=== PATIENT | female | born 1980 | race Caucasian/White ===

== ENCOUNTER 2017-06-30 14:50 | Observation (INO) ==
[2017-06-30 15:36] LABS: Basophils % 0.2 %; Eosinophils # 0.1 K/mcL (0.0-0.6); Eosinophils % 1.8 %; Hematocrit 31.4 % (35.3-44.9); Hemoglobin 10.1 g/dL (11.5-15.4); Immature Granulocytes % 0.4 % (0-4); Lymphocytes # 1.3 K/mcL (0.6-4.6); Lymphocytes % 25.3 %; Mean Corpuscular HGB Conc 32.2 g/dL (31.6-35.5); Mean Corpuscular Hemoglobin 30.1 pg (28.0-33.3); Mean Corpuscular Volume 93.5 fL (83.0-100.0); Mean Platelet Volume 9.4 fL (9.4-12.4); Monocytes # 0.4 K/mcL (0.0-1.3); Monocytes % 7.4 %; Neutrophils # 3.3 K/mcL (1.6-8.9); Platelet Count 215 K/mcL (140-400); Red Blood Count 3.36 M/mcL (3.82-4.97); Red Cell Distribution Width 18.1 % (11.5-14.5); Segmented Neutrophils % 64.9 %
[2017-06-30] MEDS ORDERED: Aspirin 81 MG TAB.CHEW PO STA (15:38)
--- NOTE | 2017-06-30 15:39 | Emergency Department Note ---
Disposition Clinical Impression: Chest pain Qualifiers: Chest pain type: unspecified Qualified Code(s): R07.9 - Chest pain, unspecified Disposition: Admitted As Inpatient Condition: Fair Referrals: Jarvis Helton MD [Primary Care Provider] - Forms: ED Satisfaction Letter Chest Pain HPI - General Chief Complaint: ED Chest Pain Stated Complaint: chest pains Time Seen by Provider: 06/30/17 15:07 - History of Present Illness HPI Narrative: Patient presents for evaluation of chest pain. Patient has past medical history of 3 previous strokes involving the right side with resolution of deficits. Patient also has a history of type 1 diabetes. Hypertension. Hypercholesterolemia. Dialysis in [place] on Tuesday with Patti Calloway. Patient states that she had been seen at [facility] and told that she had a heart attack. She follows with cardiology here and had a stress test on Tuesday. Patient did not have symptoms at this time. She was driving in her car today when she had sudden onset chest pain in the [facility] chest. She describes it as sharp. She describes is worse with walking and worse with inspiration. No associated diaphoresis or nausea or vomiting. Patient states no significant family history of early heart disease. No history of venous thrombus embolism. Patient has no family history of DVT or PEs. Not on anticoagulation. Severity scale (1-10): 7 - Related Data Home Medications Medication Instructions Recorded Confirmed Aspirin [Lo-Dose Aspirin EC] 81 mg PO DAILY 06/30/17 06/30/17 Carvedilol [Coreg] 25 mg PO BID 06/30/17 06/30/17 Dextroamphetamine/Amphetamine 15 mg PO BID 06/30/17 06/30/17 [Adderall 15 mg Tablet] Escitalopram [Lexapro] 20 mg PO DAILY 06/30/17 06/30/17 Gabapentin [Neurontin] 100 mg PO TID 06/30/17 06/30/17 Hydralazine HCl 50 mg PO TID 06/30/17 06/30/17 Insulin ASPART [NovoLOG] 20 - 25 unit SQ TID 06/30/17 06/30/17 Insulin DETEMIR [Levemir Flextouch] 40 unit SQ QAM 06/30/17 06/30/17 Norethindrone Acetate 5 mg PO DAILY 06/30/17 06/30/17 [Norethindrone AC (Lupaneta)] Omeprazole [PriLOSEC] 20 mg PO BIDAC 06/30/17 06/30/17 Allergies Allergy/AdvReac Type Severity Reaction Status Date / Time lisinopril Allergy Anaphylaxis Verified 06/21/17 20:27 naproxen [From Naprosyn] AdvReac See Verified 06/21/17 20:27 Comments Review of Systems: CONSTITUTIONAL: No weight loss, fever, chills, weakness or fatigue. HEENT: Eyes: No visual changes. Ears, Nose, Throat: No hearing loss, difficulty talking or unable to swallow. SKIN: No rash or itching. CARDIOVASCULAR: Chest pain RESPIRATORY: Pain with inspiration GASTROINTESTINAL: No anorexia, nausea, vomiting or diarrhea. No abdominal pain or blood. GENITOURINARY: No burning on urination or hematuria. NEUROLOGICAL: No headache, dizziness, syncope, paralysis, ataxia, numbness or tingling in the extremities. No change in bowel or bladder control. MUSCULOSKELETAL: No muscle pain, back pain, joint pain or stiffness. 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 Cardiac: Regular rate and rhythm, no murmurs, rubs or gallops Abdomen: soft, nontender, nondistended; no guarding, rebound, or tenderness to percussion Musculoskeletal: Calves symmetric, nontender, no palpable cord Skin: Dialysis shunt in the left arm with palpable thrill No rash, normal skin tone Neuro: Alert and Oriented to person, place, and time; No focal deficit, CN 2-12 symmetric and intact Course - Reevaluation(s) Reevaluation #1: Bedside ultrasound performed. Indication: chest pain. Views: subxiphoid. Findings: no pericardial effusion. Impression: no pericardial effusion. - Consultations Consultation #1: Discussed with hospitalist [id number]. Pt accepted for admission. Vital Signs Temperature 98.2 F 06/30/17 14:55 Pulse Rate 95 06/30/17 14:55 Respiratory Rate 20 06/30/17 14:55 Blood Pressure 193/100 06/30/17 14:55 O2 Sat by Pulse Oximetry 97 06/30/17 14:55 Temperature 98.2 F 06/30/17 14:55 Pulse Rate 92 06/30/17 16:58 Respiratory Rate 22 06/30/17 16:58 Blood Pressure 189/101 06/30/17 16:58 O2 Sat by Pulse Oximetry 94 06/30/17 16:58 Oxygen Delivery Oxygen Delivery Room Air Chest Pain - Medical Records Medical records reviewed: Yes I reviewed the patient's medical records. - Lab Data Lab results reviewed: Yes I reviewed the patient's lab results. Result diagrams: 06/30/17 15:14 06/30/17 15:14 Lab Results 06/30/17 06/30/17 06/30/17 Range/Units 15:14 15:14 15:14 WBC 5.1 (4.3-11.1) K/mcL RBC 3.36 L (3.82-4.97) M/mcL Hgb 10.1 L (11.5-15.4) g/dL Hct 31.4 L (35.3-44.9) % MCV 93.5 (83.0-100.0) fL MCH 30.1 (28.0-33.3) pg MCHC 32.2 (31.6-35.5) g/dL RDW 18.1 H (11.5-14.5) % Plt Count 215 (140-400) K/mcL MPV 9.4 (9.4-12.4) fL Immature Gran % 0.4 (0-4) % Seg Neutrophils % 64.9 % Lymphocytes % 25.3 % Monocytes % 7.4 % Eosinophils % 1.8 % Basophils % 0.2 % Neutrophils # 3.3 (1.6-8.9) K/mcL Lymphocytes # 1.3 (0.6-4.6) K/mcL Monocytes # 0.4 (0.0-1.3) K/mcL Eosinophils # 0.1 (0.0-0.6) K/mcL Basophils # 0.0 (0.0-0.2) K/mcL PT 12.5 H (9.4-12.1) Seconds INR 1.2 APTT 27.2 (26.0-36.0) Seconds Sodium (136-145) mEq/L Potassium (3.5-5.1) mEq/L Chloride (98-107) mEq/L Carbon Dioxide (23-29) mEq/L BUN (6-20) mg/dL Creatinine (0.60-1.20) mg/dL Est GFR ( Amer) (> 60) Est GFR (Non-Af Amer) (> 60) BUN/Creatinine Ratio (6-26) Glucose (70-105) mg/dL Calculated Osmolality (280-300) Calcium (8.6-10.3) mg/dL Troponin I (< 0.04) ng/mL B-Natriuretic Peptide 966 H (Less than 100) pg/mL 06/30/17 Range/Units 15:14 WBC (4.3-11.1) K/mcL RBC (3.82-4.97) M/mcL Hgb (11.5-15.4) g/dL Hct (35.3-44.9) % MCV (83.0-100.0) fL MCH (28.0-33.3) pg MCHC (31.6-35.5) g/dL RDW (11.5-14.5) % Plt Count (140-400) K/mcL MPV (9.4-12.4) fL Immature Gran % (0-4) % Seg Neutrophils % % Lymphocytes % % Monocytes % % Eosinophils % % Basophils % % Neutrophils # (1.6-8.9) K/mcL Lymphocytes # (0.6-4.6) K/mcL Monocytes # (0.0-1.3) K/mcL Eosinophils # (0.0-0.6) K/mcL Basophils # (0.0-0.2) K/mcL PT (9.4-12.1) Seconds INR APTT (26.0-36.0) Seconds Sodium 136 (136-145) mEq/L Potassium 3.9 (3.5-5.1) mEq/L Chloride 98 (98-107) mEq/L Carbon Dioxide 28 (23-29) mEq/L BUN 36 H (6-20) mg/dL Creatinine 6.08 H (0.60-1.20) mg/dL Est GFR ( Amer) 9 L (> 60) Est GFR (Non-Af Amer) 8 L (> 60) BUN/Creatinine Ratio 6 (6-26) Glucose 199 H (70-105) mg/dL Calculated Osmolality 296 (280-300) Calcium 8.3 L (8.6-10.3) mg/dL Troponin I 0.04 H* (< 0.04) ng/mL B-Natriuretic Peptide (Less than 100) pg/mL - Radiology Data Radiology results reviewed: Yes I reviewed the patient's radiology results. - EKG Data EKG attestation: Yes I reviewed and interpreted this EKG. EKG results narrative: EKG shows sinus rhythm with ventricular rate of 94. SC 136. QRS 142. QTC 458. Patient has previous left bundle branch block on 03/22/16. Patient does have T-wave changes to the inferior leads compared to previous. Scarbossa criteria not met. Heart Score - Score History: Moderately Suspicious EKG: Non Specific repolarisation Disturbance Age: Less than 45 Risk Factors: Equal/Greater than 3 risk factor or history of atherosclerotic disease Troponin: Less than normal limit HEART Score Total: 4
[2017-06-30 15:41] LABS: INR 1.2; Prothrombin Time 12.5 Seconds (9.4-12.1)
[2017-06-30 15:44] LABS: Activated Partial Thrombo Time 27.2 Seconds (26.0-36.0)
[2017-06-30 15:56] LABS: Calcium 8.3 mg/dL (8.6-10.3); Potassium 3.9 mEq/L (3.5-5.1)
[2017-06-30 16:03] LABS: Troponin I 0.04 ng/mL (< 0.04)
[2017-06-30] MEDS: Nitroglycerin 0.4 MG TAB.SUBL SL PRN ×3 (16:20→17:08)
[2017-06-30] MEDS ORDERED: *HR* Morphine 2 MG/ML SYRINGE IVP ONE (16:38)
[2017-06-30] MEDS ORDERED: Ondansetron 4 MG/2 ML VIAL IVP ONE (16:39)
--- NOTE | 2017-06-30 16:40 | Emergency Department Note ---
START Narrative - START START: I examined this patient and my medical decision-making was reviewed with the Resident Physician. I agree with the documented findings, disposition and treatment plan as described except to the extent set forth below. 36 yo F with known diabetes and presents with unstable angina. admit for aCS rule out had recent stress test done this week here. will obtain those results. having recurrent chest pain again. trop indeterminate. admit
[2017-06-30] MEDS ORDERED: Naloxone 0.4 MG/ML INJ IVP PRN (20:09)
--- NOTE | 2017-06-30 20:27 | Internal Med History&Physical ---
<Ubaldo Leon - Last Filed: 06/30/17 21:27> Date of Encounter: 06/30/17 Time of Encounter: 20:22 Internal Medicine - H&P: HPI Admitted From: Home Plans for Post Hospital Care: Home History of present illness: Ms. Mata is a 36 year old female who presents for evaluation of chest pain. Patient has past medical history of 3 previous strokes involving the right side with resolution of deficits. Patient also has a history of type 1 diabetes, Hypertension, Hypercholesterolemia, and ESRD with dialysis in [place] on Tuesday/Tuesday/Tuesday. She follows with cardiology here and had a stress test on Tuesday. She has hypertension and she reported her blood pressure never has been well controlled. She was driving in her car today when she had sudden onset chest pain. She describes it as sharp. She describes is worse with walking and worse with inspiration. No associated diaphoresis or nausea or vomiting. Patient states no significant family history of early heart disease. No history of venous thrombus embolism. At the ED, her blood pressure was significantly elevated with SBP around 190. Her labs revealed slightly elevated troponin. Chest x-ray revealed borderline cardiomegaly without pulmonary edema. Patient will be admitted for observation. Past Med Surg Social Fam HX - Past Medical History Medical history: non-contributory Psychiatric history: anxiety, bipolar, depression - Past Surgical History Surgical History: other - Social History Smoking Status: Former smoker Smokeless Tobacco Status: No Alcohol use: none Drug use: none - Family History Mother Hx Family Endocrine Disorder: Yes (DM) Hx Family Neurologic Disorders: Yes (3 CVA) Father History Unknown: Yes Internal Medicine - H&P: Meds Aspirin [Lo-Dose Aspirin EC] 81 mg PO DAILY 06/30/17 [History] Carvedilol [Coreg] 25 mg PO BID 06/30/17 [History] Dextroamphetamine/Amphetamine [Adderall 15 mg Tablet] 15 mg PO BID 06/30/17 [ History] Escitalopram [Lexapro] 20 mg PO DAILY 06/30/17 [History] Gabapentin [Neurontin] 100 mg PO TID 06/30/17 [History] Hydralazine HCl 50 mg PO TID 06/30/17 [History] Insulin ASPART [NovoLOG] 20 - 25 unit SQ TID 06/30/17 [History] Insulin DETEMIR [Levemir Flextouch] 40 unit SQ QAM 06/30/17 [History] Norethindrone Acetate [Norethindrone AC (Lupaneta)] 5 mg PO DAILY 06/30/17 [ History] Omeprazole [PriLOSEC] 20 mg PO BIDAC 06/30/17 [History] 3 Allergy/AdvReac Type Severity Reaction Status Date / Time lisinopril Allergy Anaphylaxis Verified 06/21/17 20:27 naproxen [From Naprosyn] AdvReac See Verified 06/21/17 20:27 Comments All Systems PM: A 10-system review of systems was performed and is negative for pertinent findings except as documented above in the HPI. Review of systems: REVIEW OF SYSTEMS: CONSTITUTIONAL: No weight loss, fever, chills, weakness or fatigue. HEENT: Eyes: No visual loss, blurred vision, double vision or yellow sclerae. Ears, Nose, Throat: No hearing loss, sneezing, congestion, runny nose or sore throat. SKIN: No rash or itching. CARDIOVASCULAR: see HPI. RESPIRATORY: No shortness of breath, cough or sputum. GASTROINTESTINAL: No anorexia, nausea, vomiting or diarrhea. No abdominal pain or blood. GENITOURINARY: see HPI. NEUROLOGICAL: No headache, dizziness, syncope, paralysis, ataxia, numbness or tingling in the extremities. No change in bowel or bladder control. MUSCULOSKELETAL: No muscle, back pain, joint pain or stiffness. HEMATOLOGIC: No anemia, bleeding or bruising. LYMPHATICS: No enlarged nodes. No history of splenectomy. PSYCHIATRIC: No history of depression or anxiety. ENDOCRINOLOGIC: No reports of sweating, cold or heat intolerance. No polyuria or polydipsia. - Constitutional Vitals: Temp Pulse Resp BP Pulse Ox 98.2 F 88 17 192/94 95 06/30/17 18:59 06/30/17 18:59 06/30/17 18:59 06/30/17 18:59 06/30/17 18:59 General appearance: Present: A&O X 3 Exam: PHYSICAL EXAMINATION: GENERAL APPEARANCE: The patient is alert, oriented and in no acute distress. HEENT: Head is normocephalic. The sinuses are nontender. Pupils are equal and reactive. The nares are patent. Oropharynx clear without lesions. NECK: Supple without lymphadenopathy. HEART: Regular rate and rhythm. LUNGS: No crackles or wheezes are heard. ABDOMEN: Soft, nontender, nondistended with good bowel sounds heard. Inguinal area is normal. EXTREMITIES: Without cyanosis, clubbing or edema. NEUROLOGICAL: Gross nonfocal. SKIN: Warm and dry without any rash. Internal Med - H&P Results - Labs CBC & Chem 7: 06/30/17 15:14 06/30/17 15:14 - Assessment and plan (1) Chest pain Current Visit: Yes Status: Acute Assessment and plan: 76 year old female with past medical history of end stage renal disease with dialysis, hypertension, stroke, and hyperlipidemia presented with acute onset of chest pain. She underwent recent cardiac workup including a stress test which was normal. Her blood pressure was significantly elevated with SBP around 190 upon arrival. Patient reported her blood pressure never has been well controlled. She is currently taking Coreg and hydralazine at home. - In the setting of severely elevated BP, chest pain is likely caused by demand ischemia. Place patient on nicardipine drip. We will adjust home medication to achieve better BP control and titrate off nicardipine drip. - Cycle troponin, telemetry monitoring, EKG as needed. - lipid panel in a.m., adding statins, received 1 dose of aspirin at ED, continue home aspirin. Qualifiers: Chest pain type: unspecified Qualified Code(s): R07.9 - Chest pain, unspecified (2) Hypertensive emergency Current Visit: Yes Status: Acute Assessment and plan: - same as above. (3) Diabetes Current Visit: No Status: Chronic Assessment and plan: - Continue home insulin regimen, adding insulin sliding scale. Qualifiers: Diabetes mellitus type: type 1 Diabetes mellitus complication status: with unspecified complications Qualified Code(s): E10.8 - Type 1 diabetes mellitus with unspecified complications (4) ESRD (end stage renal disease) Current Visit: No Status: Chronic Assessment and plan: - Renal consul, HD on Tuesday/Tuesday/Tuesday. (5) Stroke Current Visit: No Status: Chronic Assessment and plan: - Continue aspirin, continue statins, control BP. Qualifiers: CVA mechanism: unspecified Qualified Code(s): I63.9 - Cerebral infarction, unspecified (6) Hyperlipidemia Current Visit: No Status: Chronic Assessment and plan: Patient started on statins. Qualifiers: Hyperlipidemia type: pure hypercholesterolemia Qualified Code(s): E78.00 - Pure hypercholesterolemia, unspecified; E78.0 - Pure hypercholesterolemia - Time Spent With Patient Total time spent is greater than 50% in coordination of care (as documented) at patient's floor/unit and/or counseling patient: Greater than 35 minutes <Ferdinand Hazel - Last Filed: 07/01/17 06:12> Date of Encounter: 06/30/17 Internal Medicine - H&P: HPI History of present illness: Ms. Mata is a 36 year old female All Systems PM: A 10-system review of systems was performed and is negative for pertinent findings except as documented above in the HPI. - Constitutional Vitals: Temp Pulse Resp BP Pulse Ox 97.6 F 66 16 129/80 96 07/01/17 03:02 07/01/17 03:02 07/01/17 04:57 07/01/17 03:02 07/01/17 04:57 Internal Med - H&P Results - Labs CBC & Chem 7: 07/01/17 02:55 07/01/17 02:55 Labs: Short CBC 07/01/17 Range/Units 02:55 WBC 4.0 L (4.3-11.1) K/mcL Hgb 8.7 L (11.5-15.4) g/dL Hct 28.7 L (35.3-44.9) % Plt Count 152 (140-400) K/mcL Neutrophils # 1.7 (1.6-8.9) K/mcL BMP 07/01/17 02:55 Sodium 138 Potassium 4.1 Chloride 101 Carbon Dioxide 27 BUN 42 H Creatinine 6.87 H Glucose 72 Calcium 8.0 L Cardiac Enzymes 06/30/17 07/01/17 Range/Units 20:32 02:55 Troponin I 0.04 H* 0.04 H* (< 0.04) ng/mL - Attending Attestation I saw and evaluated the patient, and performed my own physical examination on . I discussed the case with the RESOLUTE PROFESSIONAL, and I reviewed the RESOLUTE PROFESSIONAL's note and agree with findings and plan as documented. Briefly, patient is ESRD patient on dialysis admitted for chest pain. Patient states that she was recently treated for bronchitis with Z-pack. Chest pain may be related to this, but given elevated BP and elevated troponin will initiate ACS ruleout workup. Chest pain improved somewhat with duoneb, claritin, and guaifenesin. She is relaxing comfortably in bed when I saw her. She sees paper roller Dr. Calloway; we will consult in AM. She gets M-W-F dialysis. RESOLUTE PROFESSIONAL had planned on starting cardizem drip for hypertensive urgency, but I stopped it as nurse had just given patient all of her PM BP medications. Subsequently, nurse notified that BP came down with home medications. - Assessment and plan (1) Chest pain Current Visit: Yes Status: Acute Qualifiers: Chest pain type: unspecified Qualified Code(s): R07.9 - Chest pain, unspecified (2) Hypertensive emergency Current Visit: Yes Status: Acute (3) Diabetes Current Visit: No Status: Chronic Qualifiers: Diabetes mellitus type: type 1 Diabetes mellitus complication status: with unspecified complications Qualified Code(s): E10.8 - Type 1 diabetes mellitus with unspecified complications (4) ESRD (end stage renal disease) Current Visit: No Status: Chronic (5) Stroke Current Visit: No Status: Chronic Qualifiers: CVA mechanism: unspecified Qualified Code(s): I63.9 - Cerebral infarction, unspecified (6) Hyperlipidemia Current Visit: No Status: Chronic Qualifiers: Hyperlipidemia type: pure hypercholesterolemia Qualified Code(s): E78.00 - Pure hypercholesterolemia, unspecified; E78.0 - Pure hypercholesterolemia - Time Spent With Patient Total time spent is greater than 50% in coordination of care (as documented) at patient's floor/unit and/or counseling patient:
[2017-06-30] MEDS ORDERED: D5% in Water 1,000 ML IVC PRN (20:32)
[2017-06-30] MEDS ORDERED: *HR* Dextrose 50 % in Water (Syg) 50 ML SYRINGE IVP PRN (20:32)
[2017-06-30] MEDS ORDERED: Dextrose Gel 15 GM/37.5 ML TUBE PO PRN ×2 (20:32)
[2017-06-30] MEDS ORDERED: niCARdipine 40 MG/200 ML MLS IVC SCH (20:45)
[2017-06-30] MEDS: Gabapentin 100 MG CAPSULE PO SCH (20:56)
[2017-06-30] MEDS: Insulin LISPRO 300 UNITS/3 ML VIAL SQ SCH (20:57)
[2017-06-30] MEDS: AMPHETAMINE PO SCH (20:57)
[2017-06-30] MEDS: DEXTROAMPHETAMINE PO SCH (20:57)
[2017-06-30] MEDS: hydrALAZINE 25 MG TABLET PO SCH (20:57)
[2017-06-30] MEDS: traMADol 50 MG TABLET PO PRN (21:02)
[2017-06-30] MEDS ORDERED: Ipratropium/Albuterol Neb 3 ML IH ONE (21:23)
[2017-06-30] MEDS: Loratadine 10 MG TABLET PO SCH (22:15)
[2017-06-30] MEDS: Acetaminophen 325 MG TABLET PO PRN (22:24)
[2017-06-30] MEDS ORDERED: Ipratropium/Albuterol Neb 3 ML IH PRN (23:54)
[2017-07-01 03:26] LABS: Basophils % 0.5 %; Eosinophils # 0.1 K/mcL (0.0-0.6); Hematocrit 28.7 % (35.3-44.9); Hemoglobin 8.7 g/dL (11.5-15.4); Immature Granulocytes % 0.5 % (0-4); Lymphocytes # 1.8 K/mcL (0.6-4.6); Lymphocytes % 45.5 %; Mean Corpuscular HGB Conc 30.3 g/dL (31.6-35.5); Mean Corpuscular Hemoglobin 28.5 pg (28.0-33.3); Mean Corpuscular Volume 94.1 fL (83.0-100.0); Mean Platelet Volume 9.7 fL (9.4-12.4); Monocytes # 0.4 K/mcL (0.0-1.3); Monocytes % 8.9 %; Neutrophils # 1.7 K/mcL (1.6-8.9); Platelet Count 152 K/mcL (140-400); Red Blood Count 3.05 M/mcL (3.82-4.97); Red Cell Distribution Width 17.9 % (11.5-14.5); Segmented Neutrophils % 42.6 %
[2017-07-01 03:41] LABS: Chol/HDL Ratio 4.5 (0-4.9); Potassium 4.1 mEq/L (3.5-5.1)
[2017-07-01] MEDS: *HR* Heparin 5,000 UNIT/ML VIAL SQ SCH ×2 (04:50→16:36)
[2017-07-01] MEDS: traMADol 50 MG TABLET PO PRN (04:54)
[2017-07-01] MEDS: Ipratropium/Albuterol Neb 3 ML IH SCH ×6 (04:56→23:06)
[2017-07-01] MEDS ORDERED: 0.9 % Sodium Chloride 250 ML IVC PRN (07:20)
[2017-07-01] MEDS ORDERED: 0.9 % Sodium Chloride 1,000 ML PRIME SCH (07:30)
[2017-07-01] MEDS: Insulin DETEMIR 100 UNIT/ML X5UNITS SQ SCH (07:48)
[2017-07-01] MEDS: hydrALAZINE 25 MG TABLET PO SCH ×2 (07:48→16:34)
[2017-07-01] MEDS: Loratadine 10 MG TABLET PO SCH (07:49)
[2017-07-01] MEDS: Gabapentin 100 MG CAPSULE PO SCH ×3 (07:49→20:09)
[2017-07-01] MEDS: Aspirin Enteric Coated 81 MG Tablet PO SCH (07:49)
[2017-07-01] MEDS: Insulin LISPRO 300 UNITS/3 ML VIAL SQ SCH ×7 (07:49→20:09)
[2017-07-01] MEDS: DEXTROAMPHETAMINE PO SCH ×2 (07:50→21:10)
[2017-07-01] MEDS: AMPHETAMINE PO SCH ×2 (07:50→21:10)
--- NOTE | 2017-07-01 08:14 | Internal Med Progress Note ---
Date of Encounter: 07/01/17 Time of Encounter: 08:08 - Assessment and plan (1) Chest pain Current Visit: Yes Status: Acute Assessment and plan: 36 year old female with past medical history of end stage renal disease with dialysis, hypertension, stroke, and hyperlipidemia presented with acute onset of chest pain. She underwent recent cardiac workup including a stress test which was normal. Her blood pressure was significantly elevated with SBP around 190 upon arrival. Patient reported her blood pressure never has been well controlled. She is currently taking Coreg and hydralazine at home. - In the setting of severely elevated BP, chest pain is likely caused by demand ischemia. It seems pt is not compliant with her BP meds. After giving home medication, her blood pressure was controlled. Hydralazine dose increased to 100 mg 3 times a day to achieve better BP control. - Troponin negative 3, continue telemetry monitoring, EKG as needed. - Continue statins, continue home aspirin. - Patient had a stress test on 06/30/2017, which was normal. Pending echocardiogram. Qualifiers: Chest pain type: unspecified Qualified Code(s): R07.9 - Chest pain, unspecified (2) Hypertensive emergency Current Visit: Yes Status: Acute Assessment and plan: - same as above. (3) Diabetes Current Visit: No Status: Chronic Assessment and plan: - BG controlled, Continue home insulin regimen and insulin sliding scale. Qualifiers: Diabetes mellitus type: type 1 Diabetes mellitus complication status: with unspecified complications Qualified Code(s): E10.8 - Type 1 diabetes mellitus with unspecified complications (4) ESRD (end stage renal disease) Current Visit: No Status: Chronic Assessment and plan: - HD on Tuesday/Tuesday/Tuesday. She will have dialysis today. Renal following. (5) Stroke Current Visit: No Status: Chronic Assessment and plan: - Continue aspirin, continue statins, control BP. Qualifiers: CVA mechanism: unspecified Qualified Code(s): I63.9 - Cerebral infarction, unspecified (6) Hyperlipidemia Current Visit: No Status: Chronic Assessment and plan: Patient started on statins. Qualifiers: Hyperlipidemia type: pure hypercholesterolemia Qualified Code(s): E78.00 - Pure hypercholesterolemia, unspecified; E78.0 - Pure hypercholesterolemia - Time Spent With Patient Total time spent is greater than 50% in coordination of care (as documented) at patient's floor/unit and/or counseling patient: Greater than 35 minutes - Subjective Interval history: She was seen and examined in the room, she complained dry cough, but denies any chest pain, headache, shortness breath, lightheadedness, or palpitation. - Constitutional Vitals: Temp Pulse Resp BP Pulse Ox 97.5 F L 66 16 148/81 96 07/01/17 07:46 07/01/17 07:46 07/01/17 07:46 07/01/17 07:46 07/01/17 07:46 General appearance: Present: A&O X 3 Exam: PHYSICAL EXAMINATION: GENERAL APPEARANCE: The patient is alert, oriented and in no acute distress. HEENT: Head is normocephalic. The sinuses are nontender. Pupils are equal and reactive. The nares are patent. Oropharynx clear without lesions. NECK: Supple without lymphadenopathy. HEART: Regular rate and rhythm. LUNGS: No crackles or wheezes are heard. ABDOMEN: Soft, nontender, nondistended with good bowel sounds heard. Inguinal area is normal. EXTREMITIES: Without cyanosis, clubbing or edema. NEUROLOGICAL: Gross nonfocal. SKIN: Warm and dry without any rash. Internal Medicine: Result - Labs CBC & Chem 7: 07/01/17 02:55 07/01/17 02:55 Labs: Short CBC 07/01/17 Range/Units 02:55 WBC 4.0 L (4.3-11.1) K/mcL Hgb 8.7 L (11.5-15.4) g/dL Hct 28.7 L (35.3-44.9) % Plt Count 152 (140-400) K/mcL Neutrophils # 1.7 (1.6-8.9) K/mcL BMP 07/01/17 02:55 Sodium 138 Potassium 4.1 Chloride 101 Carbon Dioxide 27 BUN 42 H Creatinine 6.87 H Glucose 72 Calcium 8.0 L Cardiac Enzymes 06/30/17 07/01/17 Range/Units 20:32 02:55 Troponin I 0.04 H* 0.04 H* (< 0.04) ng/mL - ABG Interpretation ABG results: PT/INR, D-dimer PT 12.5 Seconds (9.4-12.1) H 06/30/17 15:14 Consult Discharge Plan - Plan Referrals: Jarvis Helton MD [Primary Care Provider] -
[2017-07-01 08:42] LABS: Hepatitis B Surface Antigen Nonreactive (Nonreactive)
[2017-07-01 08:50] LABS: Hepatitis B Surface Antibody 237.43 mIU/mL
--- NOTE | 2017-07-01 09:37 | Nephrology Consult Note ---
Date of Encounter: 07/01/17 Time of Encounter: 07:50 Assessment and Plan (1) ESRD (end stage renal disease) Current Visit: No Status: Chronic ESRD on HD M/W/F with Dr. Calloway at [facility] in [place], [place]. Her primary heel cutter/group does not round at [facility]. She has been arranged for HD today for routine clearance and UF. Her next HD will be planned for Tuesday. Thank you for having consulted the [facility] group. (2) Anemia due to stage 5 chronic kidney disease Current Visit: Yes Status: Chronic Goal Hgb is 10-11, and so will arrange for EPO as needed. (3) Chest pain Current Visit: Yes Status: Acute As per primary. She has been on HD for about 1 year, so if she were to need a LHC, then would still pretreat with IVF to minimize impact on her residual renal function. Qualifiers: Chest pain type: unspecified Qualified Code(s): R07.9 - Chest pain, unspecified (4) Hypertensive emergency Current Visit: Yes Status: Acute Should expect to see slow and safe BP decline with dialysis today. Resume home antihypertensive medications. History of Present Illness - Reason for Consult Consult date: 07/01/17 end stage renal disease Requesting physician: Carla West - Chief Complaint Chest Pain - History of Present Illness Julia Mata is a very pleasant 36 y/o T1DM female with a pmh of ESRD on HD M/W/F for about 1 year, HTN, anemia, and etc who presented with chest pain / ACS. Nephrology was consulted for her dialysis. Regarding her chronic dialysis history, she follows with Dr. Calloway and dialyzes at the [facility] in [place] via a LUE AVF. She reported having been on dialysis for about 1 year ; and she voiced that the cause of her renal failure was due to her T1DM. She has never had a prior renal biopsy. She did not report any recent AVF problems such as prolonged bleeding or recent fistulagrams. She denied OTC NSAID use. CP recently started and led to this hospitalization; see H&P regarding CP onset, severity, location, palliative/provocative factors and etc. Her last HD was Tuesday without CP during dialysis, she affirmed. Past Med Surg Social Fam HX - Past Medical History Medical history: non-contributory Psychiatric history: anxiety, bipolar, depression - Past Surgical History Surgical History: other - Social History Smoking Status: Former smoker Smokeless Tobacco Status: No Alcohol use: none Drug use: none - Family History Mother Hx Family Endocrine Disorder: Yes (DM) Hx Family Neurologic Disorders: Yes (3 CVA) Father History Unknown: Yes Medications and Allergies Aspirin [Lo-Dose Aspirin EC] 81 mg PO DAILY 06/30/17 [History] Carvedilol [Coreg] 25 mg PO BID 06/30/17 [History] Dextroamphetamine/Amphetamine [Adderall 15 mg Tablet] 15 mg PO BID 06/30/17 [ History] Escitalopram [Lexapro] 20 mg PO DAILY 06/30/17 [History] Gabapentin [Neurontin] 100 mg PO TID 06/30/17 [History] Hydralazine HCl 50 mg PO TID 06/30/17 [History] Insulin ASPART [NovoLOG] 20 - 25 unit SQ TID 06/30/17 [History] Insulin DETEMIR [Levemir Flextouch] 40 unit SQ QAM 06/30/17 [History] Norethindrone Acetate [Norethindrone AC (Lupaneta)] 5 mg PO DAILY 06/30/17 [ History] Omeprazole [PriLOSEC] 20 mg PO BIDAC 06/30/17 [History] 3 Allergy/AdvReac Type Severity Reaction Status Date / Time lisinopril Allergy Anaphylaxis Verified 06/21/17 20:27 naproxen [From Naprosyn] AdvReac See Verified 06/21/17 20:27 Comments Review of Systems All Systems: reviewed and no additional remarkable complaints except as stated Exam - Vital Signs Vital signs: Initial Vital Signs Temp Pulse Resp BP Pulse Ox 98.2 F 95 20 193/100 97 06/30/17 14:55 06/30/17 14:55 06/30/17 14:55 06/30/17 14:55 06/30/17 14:55 Vital Signs - Last 8 Hours Temp Pulse Resp BP Pulse Ox 07/01/17 08:06 16 95 07/01/17 07:46 97.5 F L 66 16 148/81 96 07/01/17 04:57 16 96 07/01/17 03:02 97.6 F 66 17 129/80 98 Intake and Output 06/30/17 07/01/1707/01/18 23:59 07:59 15:59 Other: Weight 92.4 kg 93 kg Blood Glucose* 138 87 Patient Weight 07/01/17 23:59 Weight 93 kg - General Appearance General appearance: well-developed (Short body habitus), well-nourished, appears started age, obese EENT: ATNC, PERRL Neck: supple Respiratory: course breath sounds Cardiology: edema (trace pedal edema b/l), normal S1, normal S2 - Dialysis Access Dialysis Vascular Access: Arteriovenous Graft (Left upper arm AVF with excellent thrill/bruit) thrill: Yes bruit: Yes Gastrointestinal: normoactive bowel sounds, no tenderness, no guarding Integumentary: no rash, warm and dry Neurologic: no focal deficit, no asterixis, alert and oriented x3 Musculoskeletal: no deformities, no erythema, no cyanosis Psychiatric: mood/affect appropriate, cooperative Results - Lab Results 07/01/17 02:55 07/01/17 02:55 Most recent lab results Calcium 8.0 mg/dL (8.6-10.3) L 07/01/17 02:55 I reviewed the labs, vitals, imaging, progress notes and dialysis history. Consult Discharge Plan - Plan Referrals: Jarvis Helton MD [Primary Care Provider] -
[2017-07-01] MEDS ORDERED: 0.9 % Sodium Chloride 2,000 ML ONE (13:57)
--- NOTE | 2017-07-01 23:23 | Electrocardiograph Report ---
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
[2017-07-02] MEDS: hydrALAZINE 25 MG TABLET PO SCH ×2 (00:19→08:09)
[2017-07-02] MEDS: Ipratropium/Albuterol Neb 3 ML IH SCH ×4 (03:27→15:02)
[2017-07-02 04:43] LABS: Hemoglobin 9.1 g/dL (11.5-15.4); Mean Corpuscular HGB Conc 30.3 g/dL (31.6-35.5); Mean Corpuscular Hemoglobin 28.7 pg (28.0-33.3); Mean Corpuscular Volume 94.6 fL (83.0-100.0); Mean Platelet Volume 10.8 fL (9.4-12.4); Platelet Count 136 K/mcL (140-400); Red Blood Count 3.17 M/mcL (3.82-4.97); Red Cell Distribution Width 17.5 % (11.5-14.5)
[2017-07-02 05:01] LABS: Calcium 7.9 mg/dL (8.6-10.3); Potassium 4.2 mEq/L (3.5-5.1)
[2017-07-02] MEDS: *HR* Heparin 5,000 UNIT/ML VIAL SQ SCH (05:35)
--- NOTE | 2017-07-02 06:53 | Event Note ---
Date of Encounter: 07/02/17 Time of Encounter: 06:52 Nephrology Chart Review Last HD was yesterday (Tuesday), and the pt's next tentative dialysis would be for Tuesday. I am available this weekend if needed. Please feel free to call or page me if any questions. Thank you.
[2017-07-02] MEDS: AMPHETAMINE PO SCH (08:07)
[2017-07-02] MEDS: DEXTROAMPHETAMINE PO SCH (08:07)
[2017-07-02] MEDS: Insulin LISPRO 300 UNITS/3 ML VIAL SQ SCH ×3 (08:07→14:04)
[2017-07-02] MEDS: Insulin DETEMIR 100 UNIT/ML X5UNITS SQ SCH (08:07)
[2017-07-02] MEDS: Aspirin Enteric Coated 81 MG Tablet PO SCH (08:09)
[2017-07-02] MEDS: Gabapentin 100 MG CAPSULE PO SCH (08:09)
[2017-07-02] MEDS: Loratadine 10 MG TABLET PO SCH (08:09)
--- NOTE | 2017-07-02 10:10 | Discharge Summary ---
- NOTES TO OUTPATIENT PROVIDER Notes to Outpatient Provider: Patient in for chest pain rule out, workup found to be negative. Noted to have some mildly elevated troponins likely due to demand ischemia with hypertensive urgency. Hydralazine dose to increased, blood pressure improved throughout stay. Instructed to follow up with primary care and nephrology within 1 week of discharge. Orders not resulted at time of discharge: Pending orders 07/03/17 04:00 Basic Metabolic Panel AM 0400 Complete Blood Count w/o Diff [HEME] AM 0400 07/04/17 04:00 Basic Metabolic Panel AM 0400 Complete Blood Count w/o Diff [HEME] AM 04007/05/17 04:00 Basic Metabolic Panel AM 0400 Complete Blood Count w/o Diff [HEME] AM 0400 07/06/17 04:00 Basic Metabolic Panel AM 0400 Complete Blood Count w/o Diff [HEME] AM 0400 07/07/17 04:00 Basic Metabolic Panel AM 0400 Complete Blood Count w/o Diff [HEME] AM 0400 07/08/17 04:00 Basic Metabolic Panel AM 0400 Complete Blood Count w/o Diff [HEME] AM 0400 Date of Encounter: 07/02/17 Time of Encounter: 10:07 - Discharge Diagnosis (1) Chest pain Priority: Primary Status: Acute Assessment and Plan: 36 year old female with past medical history of end stage renal disease with dialysis, hypertension, stroke, and hyperlipidemia presented with acute onset of chest pain. She underwent recent cardiac workup including a stress test which was normal. Her blood pressure was significantly elevated with SBP around 190 upon arrival, antihypertensive medications were adjusted. Hydralazine increased to 100 mg by mouth every 8 hours. Up titration of antihypertensive medication provided adequate BP control. Continue Coreg at discharge. However, the patient reports her blood pressure never has been well controlled. With negative for ACS workup including negative troponins 3, negative stress test and TTE without acute findings the chest pain is felt to be caused by demand ischemia secondary to hypertension. The patient reports that the chest pain resolved on day of admission with improvement in blood pressure. She has not had any return of chest pain throughout the stay. She has remained hemodynamically stable and has had uneventful hospital course. The patient reports that she feels like she is back to baseline and ready for discharge. With resolution of chest pain, negative workup and improvement hypertension the patient is medically stable for discharge. TTE results as follows LVEF 55%. Normal LV chamber size and function. Mild concentric left ventricular hypertrophy. Probable moderate left ventricular diastolic dysfunction. Atypical septal motion consistent with bundle branch block. Normal right ventricular structure and function. No significant valvular dysfunction. Trace pericardial effusion. Mild pulmonary hypertension. Qualifiers: Chest pain type: unspecified Qualified Code(s): R07.9 - Chest pain, unspecified (2) Hypertensive emergency Priority: Secondary Status: Acute Assessment and Plan: Patient presented with hypertensive urgency, his BPs in the 180s and 190s. Hydralazine titrated to 100 mg by mouth every 8 hours, bp improving now. HTN noted on this mornings vitals with SBP in the 170s however, patient has not received her morning dose of anti-HTN medications. Follow-up blood pressure after HTN medication shows improvement. Continue hydralazine 100 mg every 8 hours and discharge, patient instructed to follow-up with PCP and commercial electrician for further titration of antihypertensive medications (3) Diabetes Priority: Secondary Status: Chronic Assessment and Plan: - BG controlled, Continue home insulin regimen at discharge Qualifiers: Diabetes mellitus type: type 1 Diabetes mellitus complication status: with unspecified complications Qualified Code(s): E10.8 - Type 1 diabetes mellitus with unspecified complications (4) ESRD (end stage renal disease) Priority: Secondary Status: Chronic Assessment and Plan: - HD on Tuesday/Tuesday/Tuesday. Following with commercial electrician in [place]. Continues to have chair for M/to be/F HD she has been instructed to follow-up with commercial electrician on Tuesday as planned. Renal function stable throughout the stay, received UF per our nephrology group yesterday. Reports she is feeling much better today. (5) Stroke Priority: Secondary Status: Chronic Assessment and Plan: History of previous stroke, Continue aspirin, continue statins, control BP. Patient instructed to follow-up with PCP and commercial electrician for further titration of antihypertensive medications Qualifiers: CVA mechanism: unspecified Qualified Code(s): I63.9 - Cerebral infarction, unspecified (6) Hyperlipidemia Priority: Secondary Status: Chronic Assessment and Plan: Patient started on statins. Comments: Continue Lipitor discharge Qualifiers: Hyperlipidemia type: pure hypercholesterolemia Qualified Code(s): E78.00 - Pure hypercholesterolemia, unspecified; E78.0 - Pure hypercholesterolemia Hospital course: Ms. Mata is a 36 year old female 36 year old female with past medical history of end stage renal disease with dialysis, hypertension, stroke, and hyperlipidemia presented with acute onset of chest pain. She underwent recent cardiac workup including a stress test which was normal. Her blood pressure was significantly elevated with SBP around 190 upon arrival, antihypertensive medications were adjusted. Hydralazine increased to 100 mg by mouth every 8 hours. Up titration of antihypertensive medication provided adequate BP control. Continue Coreg at discharge. However, the patient reports her blood pressure never has been well controlled. With negative for ACS workup including negative troponins 3, negative stress test and TTE without acute findings the chest pain is felt to be caused by demand ischemia secondary to hypertension. The patient reports that the chest pain resolved on day of admission with improvement in blood pressure. She has not had any return of chest pain throughout the stay. She has remained hemodynamically stable and has had uneventful hospital course. The patient reports that she feels like she is back to baseline and ready for discharge. With resolution of chest pain, negative workup and improvement hypertension the patient is medically stable for discharge. Discharge discussed with: patient, nurse - Time Spent with Patient Total time spent providing and/or coordinating discharge services: Less than 30 minutes - Discharge Medications Prescriptions: Hydralazine HCl 100 mg PO TID 30 Days #90 tablet Home Medications: Aspirin [Lo-Dose Aspirin EC] 81 mg PO DAILY 06/30/17 [History] Carvedilol [Coreg] 25 mg PO BID 06/30/17 [History] Dextroamphetamine/Amphetamine [Adderall 15 mg Tablet] 15 mg PO BID 06/30/17 [ History] Escitalopram [Lexapro] 20 mg PO DAILY 06/30/17 [History] Gabapentin [Neurontin] 100 mg PO TID 06/30/17 [History] Insulin ASPART [NovoLOG] 20 - 25 unit SQ TID 06/30/17 [History] Insulin DETEMIR [Levemir Flextouch] 40 unit SQ QAM 06/30/17 [History] Norethindrone Acetate [Norethindrone AC (Lupaneta)] 5 mg PO DAILY 06/30/17 [ History] Omeprazole [PriLOSEC] 20 mg PO BIDAC 06/30/17 [History] Hydralazine HCl 100 mg PO TID 30 Days #90 tablet 07/02/17 [Rx] Allergies/Adverse Reactions: 3 Allergy/AdvReac Type Severity Reaction Status Date / Time lisinopril Allergy Anaphylaxis Verified 06/21/17 20:27 naproxen [From Naprosyn] AdvReac See Verified 06/21/17 20:27 Comments Date of admission: 06/30/17 17:50 Primary care physician: Jarvis Helton, Consults: 06/30/17 20:43 Consult to Nephrology [CONS] Routine Consulting Provider: [facility] Shea/EULALIA/EDGARDO/BLACK Reason for Consult: HD Call Completed: No 07/01/17 07:30 Consult to Dialysis [CONS] ONCE Discharging clinician: Benjie Gutierrez Anticipated date of discharge: 07/02/17 - Constitutional Vitals: Temp Pulse Resp BP Pulse Ox 98.5 F 85 18 172/84 99 07/02/17 07:28 07/02/17 07:28 07/02/17 07:35 07/02/17 07:28 07/02/17 07:35 General appearance: Present: A&O X 3 - Head Head exam: Present: atraumatic, normocephalic - Eye Eye exam: Present: PERRL, conjuntiva pink, sclera anicteric Pupils: Present: PERRL - Neck Neck exam general surgery: Present: supple, trachea midline. Absent: lymphadenopathy - Respiratory Respiratory exam: Present: CTAB. Absent: accessory muscle use, rales, rhonchi, wheezes - Cardiovascular Cardiovascular exam: Present: RRR, +S1, +S2. Absent: diastolic murmur, gallop, rubs, systolic murmur - GI/Abdominal GI/Abdominal exam: Present: normal bowel sounds, soft, no peritoneal signs. Absent: distended, tenderness - Extremities Exam Extremities exam: Present: warm, radial pulses palpable and symmetrical. Absent : calf tenderness, cyanotic, pedal edema - Neurological Exam Neurological exam: Present: CN II-XII intact, oriented X3, no focal deficits. Absent: pronater drift, facial droop, speech deficit - Skin Skin exam: Present: dry, intact - Patient Status Disposition: Home, Self-Care Condition: Fair Overall status at discharge: patient is progressing back to baseline - Discharge Instructions Follow Up With: Jarvis Helton MD [Primary Care Provider] -
[2017-07-02 11:00] VITALS: BP 132/63
[2017-07-02] MEDS: Acetaminophen 325 MG TABLET PO PRN (14:02)
== END 2017-07-02 15:47 | disposition home or self-care (01) ==
LOC: EMEROO 14:50 → 3BNU 14:50
PROVIDERS: ADMIT Student in an Organized Health Care Education/Training Program; ATTEND General Practice

== ENCOUNTER 2017-07-05 04:38 | Observation (INO) ==
--- NOTE | 2017-07-05 05:10 | Emergency Department Note ---
Disposition Clinical Impression: Elevated troponin Dyspnea Qualifiers: Dyspnea type: unspecified Qualified Code(s): R06.00 - Dyspnea, unspecified Chest pain Qualifiers: Chest pain type: unspecified Qualified Code(s): R07.9 - Chest pain, unspecified Hypertension Qualifiers: Hypertension type: unspecified Qualified Code(s): I10 - Essential (primary) hypertension Disposition: Still a Patient Referrals: Jarvis Helton MD [Primary Care Provider] - Forms: ED Satisfaction Letter Time of Disposition: 06:45 Chest Pain HPI - General Chief Complaint: ED Chest Pain Stated Complaint: cp/sob Time Seen by Provider: 07/05/17 04:47 Source: patient Mode of arrival: ambulatory Limitations: no limitations Vital Signs Reviewed: Yes Nursing Notes Reviewed: Yes - History of Present Illness HPI Narrative: Patient is a 36-year-old female hypertension, hyperlipidemia, COPD, diabetes, stroke, dialysis dependent, previous stroke with residual slurred speech. She presents today due to chest pain. Chest pain started about 2 hours ago, gradual in onset, woke her up out of sleep, described as a pressure in the center of her chest, no radiation, currently a 10 out of 10. Did not take any aspirin or nitroglycerin prior to arrival. She denies any previous NV or cardiac stents in the past. She did recently have a stress test on 07/01 that showed she had an EF of around 36% negative for overt ischemia. She also admits to some mild shortness of breath. Denies any nausea, vomiting, fevers, diarrhea, abdominal pain, arm or jaw pain.. Severity scale (1-10): 7 - Related Data Home Medications Medication Instructions Recorded Confirmed Aspirin [Lo-Dose Aspirin EC] 81 mg PO DAILY 06/30/17 06/30/17 Carvedilol [Coreg] 25 mg PO BID 06/30/17 06/30/17 Dextroamphetamine/Amphetamine 15 mg PO BID 06/30/17 06/30/17 [Adderall 15 mg Tablet] Escitalopram [Lexapro] 20 mg PO DAILY 06/30/17 06/30/17 Gabapentin [Neurontin] 100 mg PO TID 06/30/17 06/30/17 Insulin ASPART [NovoLOG] 20 - 25 unit SQ TID 06/30/17 06/30/17 Insulin DETEMIR [Levemir Flextouch] 40 unit SQ QAM 06/30/17 06/30/17 Norethindrone Acetate 5 mg PO DAILY 06/30/17 06/30/17 [Norethindrone AC ([place])] Omeprazole [PriLOSEC] 20 mg PO BIDAC 06/30/17 06/30/17 Previous Rx's Medication Instructions Recorded Hydralazine HCl 100 mg PO TID 30 Days #90 tablet 07/02/17 Allergies Allergy/AdvReac Type Severity Reaction Status Date / Time lisinopril Allergy Anaphylaxis Verified 07/05/17 04:51 naproxen [From Naprosyn] AdvReac See Verified 07/05/17 04:51 Comments All systems ED: reviewed and negative except as stated. Constitutional: Denies: fever Cardiovascular: Reports: chest pain. Denies: palpitations Respiratory: Reports: dyspnea. 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 Absent : tenderness, rash - Respiratory Respiratory exam: Present: normal lung sounds bilaterally. Absent: respiratory distress, wheezes, stridor, accessory muscle use - Cardiovascular Cardiovascular exam: Present: regular rate, normal rhythm, normal heart sounds - Abdominal Exam Abdominal exam: Present: soft, Non-Tender. Absent: tenderness, distention, guarding, rebound, rigidity - Extremities Exam Extremities exam: Present: normal inspection, full ROM. Absent: tenderness, pedal edema - Neurological Exam Neurological exam: Present: alert, oriented X3, other (Mildly slurred speech, residual from previous stroke) - Expanded Neurological Exam Patient oriented to: Present: person, place, time Cranial nerves: EOM function (II, III, IV, ): Normal, facial sensation (V): Normal, facial palsy (VII): Normal, spinal accessory function (XI): Normal, tongue deviation (XII): Normal Motor strength - LUE: 5/5 Motor strength - RUE: 5/5 Motor strength - LLE: 5/5 Motor strength - RLE: 5/5 Sensory exam upper extremity: light touch: Normal Sensory exam lower extremity: light touch: Normal Coma Scale Eye Opening: Spontaneous Coma Scale Motor Response: Obeys Commands Coma Scale Verbal Response: Oriented Coma Scale Total: 15 - Psychiatric Psychiatric exam: Present: normal affect, normal mood - Skin Skin exam: Present: warm, dry, intact, normal color Course Course Narrative: Patient was hypertensive on presentation. Also satting 91% on room air. Currently concern for ACS, also concern for PE. Basic labs, EKG, troponin, chest x-ray ordered. Cannot perform CTA due to patient having chronic renal failure. We will perform V/Q scan for further assessment of PE. EKG showed sinus rhythm with chronic left bundle branch block. No other acute ST changes compared to previous EKG. Troponin 0.04. Chest x-ray suggestive of borderline cardiomegaly versus pulmonary venous congestion. Otherwise no acute cardiopulmonary process. I talked with Dr. Green, she stated that if tropnin elevated or if there were EKG changes, she would suggest starting heparin. Will start heparin drip and admit for further care. 06:43 patient back from VQ scan. Currently waiting on results. Patient had increased shortness of breath. She was satting 86% on 4 L nasal cannula. Patient was placed on BiPAP and given 3 duo nebs. Also started on nitro drip due to high blood pressures and CHF exacerbation. Will sign out patient to Dr. Zuniga for further care and dispo. Chest X-Ray 07/05/17 04:49 IMPRESSION: 1. Findings suggestive of borderline cardiomegaly and pulmonary venous congestion. D/ / Delvis Cui MD / Delvis Cui MD Interpreting Provider: Delvis Cui MD Vital Signs Temperature 98.2 F 07/05/17 04:51 Pulse Rate 91 07/05/17 04:51 Respiratory Rate 17 07/05/17 04:51 Blood Pressure 185/82 07/05/17 04:51 O2 Sat by Pulse Oximetry 91 07/05/17 04:51 Temperature 98.2 F 07/05/17 04:51 Pulse Rate 96 07/05/17 06:41 Respiratory Rate 20 07/05/17 06:41 Blood Pressure 185/116 07/05/17 06:41 O2 Sat by Pulse Oximetry 95 07/05/17 06:42 Oxygen Delivery Oxygen Delivery Nasal Cannula Chest Pain - MDM Narrative Medical decision making narrative: Patient was hypertensive on presentation. Also satting 91% on room air. Currently concern for ACS, also concern for PE. Basic labs, EKG, troponin, chest x-ray ordered. Cannot perform CTA due to patient having chronic renal failure. We will perform V/Q scan for further assessment of PE. EKG showed sinus rhythm with chronic left bundle branch block. No other acute ST changes compared to previous EKG. Troponin 0.04. Chest x-ray suggestive of borderline cardiomegaly versus pulmonary venous congestion. Otherwise no acute cardiopulmonary process. I talked with Dr. Green, she stated that if tropnin elevated or if there were EKG changes, she would suggest starting heparin. Will start heparin drip and admit for further care. 06:43 patient back from VQ scan. Currently waiting on results. Patient had increased shortness of breath. She was satting 86% on 4 L nasal cannula. Patient was placed on BiPAP and given 3 duo nebs. Also started on nitro drip due to high blood pressures and CHF exacerbation. Will sign out patient to Dr. Zuniga for further care and dispo. - Medical Records Medical records reviewed: Yes I reviewed the patient's medical records. - Lab Data Lab results reviewed: Yes I reviewed the patient's lab results. Result diagrams: 07/05/17 05:02 07/05/17 05:02 Lab Results 07/05/17 07/05/17 07/05/17 Range/Units 05:02 05:02 05:02 WBC 6.5 (4.3-11.1) K/mcL RBC 3.17 L (3.82-4.97) M/mcL Hgb 9.5 L (11.5-15.4) g/dL Hct 29.3 L (35.3-44.9) % MCV 92.4 (83.0-100.0) fL MCH 30.0 (28.0-33.3) pg MCHC 32.4 (31.6-35.5) g/dL RDW 17.2 H (11.5-14.5) % Plt Count 194 (140-400) K/mcL MPV 9.8 (9.4-12.4) fL Immature Gran % 0.5 (0-4) % Seg Neutrophils % 73.7 % Lymphocytes % 17.5 % Monocytes % 7.2 % Eosinophils % 0.9 % Basophils % 0.2 % Neutrophils # 4.8 (1.6-8.9) K/mcL Lymphocytes # 1.1 (0.6-4.6) K/mcL Monocytes # 0.5 (0.0-1.3) K/mcL Eosinophils # 0.1 (0.0-0.6) K/mcL Basophils # 0.0 (0.0-0.2) K/mcL PT 13.9 H (9.4-12.1) Seconds INR 1.3 APTT 26.9 (26.0-36.0) Seconds Sodium 135 L (136-145) mEq/L Potassium 4.3 (3.5-5.1) mEq/L Chloride 97 L (98-107) mEq/L Carbon Dioxide 29 (23-29) mEq/L BUN 38 H (6-20) mg/dL Creatinine 5.87 H (0.60-1.20) mg/dL Est GFR ( Amer) 10 L (> 60) Est GFR (Non-Af Amer) 8 L (> 60) BUN/Creatinine Ratio 6 (6-26) Glucose 184 H (70-105) mg/dL Calculated Osmolality 294 (280-300) Calcium 9.0 (8.6-10.3) mg/dL Troponin I 0.04 H* (< 0.04) ng/mL - Radiology Data Radiology results reviewed: Yes I reviewed the patient's radiology results. Chest X-Ray 07/05/17 04:49 IMPRESSION: 1. Findings suggestive of borderline cardiomegaly and pulmonary venous congestion. D/ / Delvis Cui MD / Delvis Cui MD Interpreting Provider: Delvis Cui MD Attestation Statement - Attestation Attestation: I examined this patient and my medical decision-making was reviewed with the Resident Physician. I agree with the documented findings, disposition and treatment plan as described except to the extent set forth below. Findings consistent with respiratory failure related to pulmonary edema and accelerated hypertension. Patient was started on nitroglycerin infusion, BiPAP was initiated, patient will undergo VQ scan of the chest rule out pulmonary embolism as she is end-stage renal disease and still makes urine and I would want to avoid contrast load as to prevent contrast-induced nephropathy. I spent greater than 35 minutes of critical care time resuscitating this acutely ill patient suffering from respiratory failure related to pulmonary edema. This is excluding billable procedures.
[2017-07-05 05:16] LABS: Basophils % 0.2 %; Eosinophils # 0.1 K/mcL (0.0-0.6); Eosinophils % 0.9 %; Hematocrit 29.3 % (35.3-44.9); Hemoglobin 9.5 g/dL (11.5-15.4); Immature Granulocytes % 0.5 % (0-4); Lymphocytes # 1.1 K/mcL (0.6-4.6); Lymphocytes % 17.5 %; Mean Corpuscular HGB Conc 32.4 g/dL (31.6-35.5); Mean Corpuscular Volume 92.4 fL (83.0-100.0); Mean Platelet Volume 9.8 fL (9.4-12.4); Monocytes # 0.5 K/mcL (0.0-1.3); Monocytes % 7.2 %; Neutrophils # 4.8 K/mcL (1.6-8.9); Platelet Count 194 K/mcL (140-400); Red Blood Count 3.17 M/mcL (3.82-4.97); Red Cell Distribution Width 17.2 % (11.5-14.5); Segmented Neutrophils % 73.7 %
[2017-07-05 05:22] LABS: INR 1.3; Prothrombin Time 13.9 Seconds (9.4-12.1)
[2017-07-05 05:25] LABS: Activated Partial Thrombo Time 26.9 Seconds (26.0-36.0)
[2017-07-05] MEDS ORDERED: Aspirin 325 MG TABLET PO ONE (05:27)
[2017-07-05] MEDS ORDERED: *HR* FentaNYL (PF) 100 MCG/2 ML VIAL IVP ONE (05:27)
[2017-07-05 05:35] LABS: Potassium 4.3 mEq/L (3.5-5.1)
[2017-07-05 05:47] LABS: Troponin I 0.04 ng/mL (< 0.04)
[2017-07-05] MEDS ORDERED: *HR* Heparin 5,000 UNIT/ML VIAL IVP PRN (06:12)
[2017-07-05] MEDS ORDERED: *HR* Heparin 5,000 UNIT/ML VIAL IVP ONE (06:12)
[2017-07-05] MEDS: Heparin 25,000 UNIT/500 ML D5W 25,000 UNIT/500 ML BAG IVC SCH (06:38)
[2017-07-05] MEDS ORDERED: Ipratropium/Albuterol Neb 3 ML IH ONE (06:41)
[2017-07-05] MEDS ORDERED: Ipratropium/Albuterol Neb 3 ML ONE (06:42)
[2017-07-05] MEDS ORDERED: Nitroglycerin 25 MG/250 ML INFUS..BTL IVC SCH (07:00)
--- NOTE | 2017-07-05 07:42 | Emergency Department Note ---
Disposition Clinical Impression: Elevated troponin Dyspnea Qualifiers: Dyspnea type: unspecified Qualified Code(s): R06.00 - Dyspnea, unspecified Chest pain Qualifiers: Chest pain type: unspecified Qualified Code(s): R07.9 - Chest pain, unspecified Hypertension Qualifiers: Hypertension type: unspecified Qualified Code(s): I10 - Essential (primary) hypertension Disposition: Admitted As Inpatient Condition: Fair Referrals: Jarvis Helton MD [Primary Care Provider] - Forms: ED Satisfaction Letter Time of Disposition: 07:51 General Adult HPI - General Chief complaint: ED Chest Pain Stated complaint: cp/sob Time Seen by Provider: 07/05/17 04:47 Source: patient Mode of arrival: ambulatory Limitations: no limitations - History of Present Illness Pain Scale: 7 - Related Data Home Medications Medication Instructions Recorded Confirmed Aspirin [Lo-Dose Aspirin EC] 81 mg PO DAILY 06/30/17 07/05/17 Carvedilol [Coreg] 25 mg PO BID 06/30/17 07/05/17 Dextroamphetamine/Amphetamine 15 mg PO BID 06/30/17 07/05/17 [Adderall 15 mg Tablet] Escitalopram [Lexapro] 20 mg PO DAILY 06/30/17 07/05/17 Gabapentin [Neurontin] 100 mg PO TID 06/30/17 07/05/17 Insulin ASPART [NovoLOG] 20 - 25 unit SQ TID 06/30/17 07/05/17 Insulin DETEMIR [Levemir Flextouch] 40 unit SQ QAM 06/30/17 07/05/17 Norethindrone Acetate 5 mg PO DAILY 06/30/17 07/05/17 [Norethindrone AC ([place])] Omeprazole [PriLOSEC] 20 mg PO BIDAC 06/30/17 07/05/17 Budesonide/Formoterol 80/4.5 2 puff IH BID 07/05/17 07/05/17 [Symbicort 80/4.5] Hydralazine HCl 50 mg PO TID 07/05/17 07/05/17 Allergies Allergy/AdvReac Type Severity Reaction Status Date / Time lisinopril Allergy Anaphylaxis Verified 07/05/17 04:51 naproxen [From Naprosyn] AdvReac See Verified 07/05/17 04:51 Comments Constitutional: Denies: fever Cardiovascular: Reports: chest pain. Denies: palpitations Respiratory: Reports: dyspnea. 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 Callejas and Dr. Ponce. Detailed review the presentation medical intervention consultation cardiology and recommendations for the treatment course were discussed and reviewed. Patient's labs are all resulted at this time. She is currently a dialysis patient. She has baseline mentation as well as presentations point. She presented to emergency room with 2 hours chest pain over from sleep. Patient had EKG that was stable in presentation from previous that was documented on . This is documented in the resident physician's note. My repeat physical exam shows clear lungs at this time. Pulse ox is normal blood pressure that is elevated but stabilized. Patient's abdomen is soft she has no pitting edema. Initial presentation was concerning for coarse crackles fluid overload accelerated hypertension causing all these issues. Patient was placed on BiPAP heparin drip at the request of the preschool education director and then the nitro drip was ordered for symptomatic control the blood pressure. Patient is sent for ventilation/perfusion scan and that was pending on arrival here of my shift. Patient's VQ scan is unremarkable this time. Patient's blood pressure still has been elevated. Nitroglycerin has been held at this time. I will discuss with the hospitalist. Patient is under the care of Dr. Lin for her dialysis and goes Tuesday. Patient had a complete treatment yesterday with no issues. Her chest pain has resolved here. The hypoxia that was noted 80% is better after BiPAP. Patient is otherwise clinically stable. We need to start the nitroglycerin to help with the fluid overload as well as the elevated blood pressure. Detailed review the patient's presentation symptoms was discussed with the hospitalist Dr. Peters. She had no other recommendations or concerns at this point. She did review the patient's most recent admission. I also discussed the cardiology recommendations with a heparin drip observation. Patient will be admitted this time for stabilization and observation. Patient has not required any other intervention. Admission process to be completed. We will continue monitoring in the emergency room until admission process is established Vital Signs Temperature 98.2 F 07/05/17 04:51 Pulse Rate 91 07/05/17 04:51 Respiratory Rate 17 07/05/17 04:51 Blood Pressure 185/82 07/05/17 04:51 O2 Sat by Pulse Oximetry 91 07/05/17 04:51 Temperature 98.2 F 07/05/17 04:51 Pulse Rate 91 07/05/17 07:03 Respiratory Rate 15 07/05/17 07:03 Blood Pressure 185/86 07/05/17 07:03 O2 Sat by Pulse Oximetry 97 07/05/17 07:03 Oxygen Delivery Oxygen Delivery CPAP Mask O2 Medical Decision Making - MDM Narrative Medical decision making narrative: Fluid overload, hypertension, hypoxia, renal failure - Medical Records Medical records reviewed: Yes I reviewed the patient's medical records. - Lab Data Lab results reviewed: Yes I reviewed the patient's lab results. Result diagrams: 07/05/17 05:02 07/05/17 05:02 Lab Results 07/05/17 07/05/17 07/05/17 Range/Units 05:02 05:02 05:02 WBC 6.5 (4.3-11.1) K/mcL RBC 3.17 L (3.82-4.97) M/mcL Hgb 9.5 L (11.5-15.4) g/dL Hct 29.3 L (35.3-44.9) % MCV 92.4 (83.0-100.0) fL MCH 30.0 (28.0-33.3) pg MCHC 32.4 (31.6-35.5) g/dL RDW 17.2 H (11.5-14.5) % Plt Count 194 (140-400) K/mcL MPV 9.8 (9.4-12.4) fL Immature Gran % 0.5 (0-4) % Seg Neutrophils % 73.7 % Lymphocytes % 17.5 % Monocytes % 7.2 % Eosinophils % 0.9 % Basophils % 0.2 % Neutrophils # 4.8 (1.6-8.9) K/mcL Lymphocytes # 1.1 (0.6-4.6) K/mcL Monocytes # 0.5 (0.0-1.3) K/mcL Eosinophils # 0.1 (0.0-0.6) K/mcL Basophils # 0.0 (0.0-0.2) K/mcL PT 13.9 H (9.4-12.1) Seconds INR 1.3 APTT 26.9 (26.0-36.0) Seconds Sodium 135 L (136-145) mEq/L Potassium 4.3 (3.5-5.1) mEq/L Chloride 97 L (98-107) mEq/L Carbon Dioxide 29 (23-29) mEq/L BUN 38 H (6-20) mg/dL Creatinine 5.87 H (0.60-1.20) mg/dL Est GFR ( Amer) 10 L (> 60) Est GFR (Non-Af Amer) 8 L (> 60) BUN/Creatinine Ratio 6 (6-26) Glucose 184 H (70-105) mg/dL Calculated Osmolality 294 (280-300) Calcium 9.0 (8.6-10.3) mg/dL Troponin I 0.04 H* (< 0.04) ng/mL - Radiology Data Radiology results reviewed: Yes I reviewed the patient's radiology results. Ventilation/perfusion scan is unremarkable for abnormality consistent with pulmonary emboli - EKG Data EKG #1 EKG attestation: Yes I reviewed and interpreted this EKG. EKG results narrative: EKG shows sinus rhythm. Left bundle branch noted. Ventricular rate of 98. [place] interval 120. QRS duration 142. QTC of 447. This is reviewed and compared to an EKG on 06/30/17 that appears to be similar in presentation with no acute abnormalities or changes. No acute signs of WPW Brugada or hyperkalemia
[2017-07-05] MEDS ORDERED: Naloxone 0.4 MG/ML INJ IVP PRN (08:27)
[2017-07-05] MEDS ORDERED: Dextrose Gel 15 GM/37.5 ML TUBE PO PRN ×2 (08:29)
[2017-07-05] MEDS ORDERED: D5% in Water 1,000 ML IVC PRN (08:29)
[2017-07-05] MEDS ORDERED: *HR* Dextrose 50 % in Water (Syg) 50 ML SYRINGE IVP PRN (08:29)
[2017-07-05] MEDS ORDERED: 0.9 % Sodium Chloride 250 ML IVC PRN (08:32)
--- NOTE | 2017-07-05 08:53 | Internal Med History&Physical ---
Date of Encounter: 07/05/17 Time of Encounter: 08:05 Internal Medicine - H&P: HPI Chief complaint: chest pain, shortness of breath Admitted From: Home Plans for Post Hospital Care: Home History of present illness: Ms. Mata is a 36 year old female with PMH Of ESRD on HD, COPD, s/p CVA, HTN, DM who presented to the ER for acute onset of chest pain. She reported of having localized, sharp chest pain that woke her up from sleep. Denied any alleviating or exacerbating factors. States this is the same chest pain that she had few days ago when she was admitted to the hospital and underwent complete cardiac work up which ruled out ACS. She also reported of shortness of breath and was noted to have bibasilar rales and CXR findings consistent with volume overload. She reports of receiving HD yesterday (Tuesday-07/04/17). ER work up was positive for mild elevation of TNI, which has been unchanged from her previous levels. She received aspirin and cardiology evaluation was requested by the ER physician. Pt was started on heparin gtt as per the roof foreman's recommendation. During my evaluation, pt was on bipap, saturating well, and reports of significant improvement of chest pain since her hospitalization. She remained hypertensive, and was started on nitro gtt by the ER physician. Past Med Surg Social Fam HX - Past Medical History Medical history: COPD, CVA, diabetes, hyperlipidemia, hypertension, renal disease Psychiatric history: anxiety, bipolar, depression - Social History Smoking Status: Former smoker Smokeless Tobacco Status: No Alcohol use: none Drug use: none - Family History Mother Hx Family Endocrine Disorder: Yes (DM) Hx Family Neurologic Disorders: Yes (3 CVA) Internal Medicine - H&P: Meds Aspirin [Lo-Dose Aspirin EC] 81 mg PO DAILY 06/30/17 [History] Carvedilol [Coreg] 25 mg PO BID 06/30/17 [History] Dextroamphetamine/Amphetamine [Adderall 15 mg Tablet] 15 mg PO BID 06/30/17 [ History] Escitalopram [Lexapro] 20 mg PO DAILY 06/30/17 [History] Gabapentin [Neurontin] 100 mg PO TID 06/30/17 [History] Insulin ASPART [NovoLOG] 20 - 25 unit SQ TID 06/30/17 [History] Insulin DETEMIR [Levemir Flextouch] 40 unit SQ QAM 06/30/17 [History] Norethindrone Acetate [Norethindrone AC (Lupaneta)] 5 mg PO DAILY 06/30/17 [ History] Omeprazole [PriLOSEC] 20 mg PO BIDAC 06/30/17 [History] Budesonide/Formoterol 80/4.5 [Symbicort 80/4.5] 2 puff IH BID 07/05/17 [History ] Hydralazine HCl 50 mg PO TID 07/05/17 [History] 3 Allergy/AdvReac Type Severity Reaction Status Date / Time lisinopril Allergy Anaphylaxis Verified 07/05/17 04:51 naproxen [From Naprosyn] AdvReac See Verified 07/05/17 04:51 Comments All Systems PM: A 10-system review of systems was performed and is negative for pertinent findings except as documented above in the HPI. - Constitutional Constitutional: no anorexia, no chills, no fever(s), no falls, no night sweats - EENT Eyes: no change in vision Nose, mouth and throat: no dysphagia - Cardiovascular Cardiovascular ROS IM: chest pain, dyspnea, no orthopnea, no palpitations, no paroxysmal nocturnal dyspnea - Respiratory Respiratory: dyspnea, no hemoptysis, no wheezing, no pain on inspiration - Gastrointestinal Gastrointestinal: no abdominal pain, no change in bowel habits, no constipation , no heartburn, no vomiting - Constitutional Vitals: Temp Pulse Resp BP Pulse Ox 98.2 F 85 15 177/90 97 07/05/17 04:51 07/05/17 08:22 07/05/17 08:22 07/05/17 08:22 07/05/17 07:03 General appearance: Present: A&O X 3, no acute distress, obese - Head Head exam: Present: atraumatic, normocephalic - Eye Eye exam: Present: EOMI, normal appearance - Respiratory Respiratory exam: Absent: respiratory distress, wheezes (bibasilar rales) - Cardiovascular Cardiovascular exam: Present: RRR, +S1, +S2. Absent: diastolic murmur, gallop, rubs, systolic murmur - GI/Abdominal GI/Abdominal exam: Present: normal bowel sounds, soft, no peritoneal signs. Absent: distended, tenderness - Extremities Exam Extremities exam: Present: pedal edema (trace pedal edema bilaterally), warm, radial pulses palpable and symmetrical. Absent: calf tenderness, tenderness - Neurological Exam Neurological exam: Present: alert, oriented X3 - Psychiatric Psychiatric exam: Present: normal affect, normal mood Internal Med - H&P Results - Labs CBC & Chem 7: 07/05/17 05:02 07/05/17 05:02 - Assessment and plan (1) Chest pain Current Visit: Yes Status: Acute Assessment and plan: Pt was recently discharged from the hospital on 07/02/17 after being worked up for chest pain and ACS was ruled out nuclear stress test was negative 2D echo reported LVEF of 55% with moderate LV diastolic dysfunction Pt returns today with the same presentation and mild troponin elevation, which is unchanged from last hospitalization As per ER physician's communication with the roof foreman, pt was started on heparin gtt She received ASA in the ER Currently chest pain improved but not resolved, pt does not appear to be in any discomfort No EKG changes reported will continue to monitor serial TNI currently on nitro gtt continue asa, statin, bb tele monitoring f/u cardiology evaluation (consult called by the ER physician) Qualifiers: Chest pain type: unspecified Qualified Code(s): R07.9 - Chest pain, unspecified (2) Elevated troponin Current Visit: Yes Status: Acute Assessment and plan: as listed above (3) Volume overload Current Visit: Yes Status: Acute Assessment and plan: clinical signs of volume overload nephrology evaluation requested for possible BOILER TESTER for fluid removal continue bipap support at this time will continue to closely monitor Qualifiers: Hypervolemia type: unspecified Qualified Code(s): E87.70 - Fluid overload, unspecified (4) Dyspnea Current Visit: Yes Status: Acute Assessment and plan: secondary to volume overload continue bipap support pt may benefit from BOILER TESTER for fluid removal will closely monitor respiratory status Qualifiers: Dyspnea type: unspecified Qualified Code(s): R06.00 - Dyspnea, unspecified (5) ESRD (end stage renal disease) on dialysis Current Visit: Yes Status: Chronic Assessment and plan: Pt reports of getting HD on MWF and states she received HD on 07/04/17 f/u nephrology evaluation (6) Uncontrolled hypertension Current Visit: Yes Status: Acute Assessment and plan: Chronic history of uncontrolled HTN pt started on nitro drip in the ER unclear of patient's compliance with her home meds will adjust home meds as necessary for better BP control Continue to closely monitor BP (7) Anemia due to stage 5 chronic kidney disease Current Visit: No Status: Chronic Assessment and plan: H&H low but acceptable no acute bleeding reported at this time continue to closely monitor (8) Diabetes Current Visit: No Status: Chronic Assessment and plan: continue home insulin dose added sliding scale insulin algorithm as needed monitor FS and BG ADA diet Qualifiers: Diabetes mellitus type: type 1 Diabetes mellitus complication status: with unspecified complications Qualified Code(s): E10.8 - Type 1 diabetes mellitus with unspecified complications (9) CVA (cerebral vascular accident) Current Visit: Yes Status: Chronic Assessment and plan: no residual deficits reported Qualifiers: CVA mechanism: unspecified Qualified Code(s): I63.9 - Cerebral infarction, unspecified (10) Obesity (BMI 30-39.9) Current Visit: Yes Status: Chronic (11) DVT prophylaxis Current Visit: Yes Status: Acute Assessment and plan: currently on heparin gtt - Time Spent With Patient Total time spent is greater than 50% in coordination of care (as documented) at patient's floor/unit and/or counseling patient:
--- NOTE | 2017-07-05 10:02 | Nephrology Consult Note ---
Date of Encounter: 07/05/17 Time of Encounter: 09:50 Assessment and Plan (1) ESRD (end stage renal disease) on dialysis Current Visit: Yes Status: Chronic With her pulm vascular congestion, HTN urgency and worsening dyspena, I recommend UF today (Tuesday). Orders placed. Will also plan for HD tomorrow to resume her usual M/W/F schedule On exam, her LUE AVF appears to be good on exam. She has a hx of COPD and is a former smoker, so if her dyspnea persists after fluid removal today and tomorrow, then be sure to explore the differential diagnoses. Thank you for consulting the [facility]; will follow with you. (2) Dyspnea Current Visit: Yes Status: Acute See above Qualifiers: Dyspnea type: unspecified Qualified Code(s): R06.00 - Dyspnea, unspecified (3) Uncontrolled hypertension Current Visit: Yes Status: Acute Suspect d/t volume status (hypervolemic). Will target UF today and further fluid tomorrow to help lower BP. Resume home antihypertensive medications. (4) Volume overload Current Visit: Yes Status: Acute See above Qualifiers: Hypervolemia type: unspecified Qualified Code(s): E87.70 - Fluid overload, unspecified History of Present Illness - Reason for Consult Consult date: 07/05/17 end stage renal disease, accelerated hypertension Requesting physician: Jolie Peters - Chief Complaint ESRD - History of Present Illness Hansa Mata is an ESRD patient on dialysis M/W/F with Dr. Calloway in [place] who presented with pulm edema, worsened dyspnea. She was not able to provide a complete HPI d/t her AMS, but she shook her head in affirmation that she last went for dialysis on Tuesday (yesterday). She was not able to answer questions about her dry weight, AVF, shortness of breath, etc. She was wearing BiPAP. No family members were present in the room during my interview/ exam Past Med Surg Social Fam HX - Past Medical History Medical history: COPD, CVA, diabetes, hyperlipidemia, hypertension, renal disease Psychiatric history: anxiety, bipolar, depression - Past Surgical History Surgical History: other - Social History Smoking Status: Former smoker Smokeless Tobacco Status: No Alcohol use: none Drug use: none - Family History Mother Hx Family Endocrine Disorder: Yes (DM) Hx Family Neurologic Disorders: Yes (3 CVA) Medications and Allergies Aspirin [Lo-Dose Aspirin EC] 81 mg PO DAILY 06/30/17 [History] Carvedilol [Coreg] 25 mg PO BID 06/30/17 [History] Dextroamphetamine/Amphetamine [Adderall 15 mg Tablet] 15 mg PO BID 06/30/17 [ History] Escitalopram [Lexapro] 20 mg PO DAILY 06/30/17 [History] Gabapentin [Neurontin] 100 mg PO TID 06/30/17 [History] Insulin ASPART [NovoLOG] 20 - 25 unit SQ TID 06/30/17 [History] Insulin DETEMIR [Levemir Flextouch] 40 unit SQ QAM 06/30/17 [History] Norethindrone Acetate [Norethindrone AC (Lupaneta)] 5 mg PO DAILY 06/30/17 [ History] Omeprazole [PriLOSEC] 20 mg PO BIDAC 06/30/17 [History] Budesonide/Formoterol 80/4.5 [Symbicort 80/4.5] 2 puff IH BID 07/05/17 [History ] Hydralazine HCl 50 mg PO TID 07/05/17 [History] 3 Allergy/AdvReac Type Severity Reaction Status Date / Time lisinopril Allergy Anaphylaxis Verified 07/05/17 04:51 naproxen [From Naprosyn] AdvReac See Verified 07/05/17 04:51 Comments Review of Systems ROS unobtainable: due to mental status Exam - Vital Signs Vital signs: Initial Vital Signs Temp Pulse Resp BP Pulse Ox 98.2 F 91 17 185/82 91 07/05/17 04:51 07/05/17 04:51 07/05/17 04:51 07/05/17 04:51 07/05/17 04:51 Vital Signs - Last 8 Hours Temp Pulse Resp BP Pulse Ox 07/05/17 09:30 97.4 F L 82 20 173/80 99 07/05/17 08:22 85 15 177/90 Intake and Output 07/04/17 07/05/17 07/05/17 23:59 07:59 15:59 Other: Weight 99 kg Patient Weight 07/05/17 23:59 Weight 99 kg - General Appearance General appearance: well-developed, appears started age, obese, moderate distress (on BiPAP), fatigue EENT: mucous membranes moist Neck: supple Respiratory: rales, course breath sounds, rhonchi Cardiology: edema (nontense nonpitting b/l LE edema), normal S1, normal S2 - Dialysis Access Dialysis Vascular Access: Arteriovenous Fistula (left UE) thrill: Yes bruit: Yes Gastrointestinal: normoactive bowel sounds, no tenderness, no guarding Integumentary: warm and dry Additional Comments: slow to open both eyes symmetrically, move all four extremities, but was somnolent though would arouse with verbal commands then fall asleep quickly Musculoskeletal: no cyanosis, no clubbing Psychiatric: cooperative Results - Lab Results 07/05/17 05:02 07/05/17 05:02 Most recent lab results Calcium 9.0 mg/dL (8.6-10.3) 07/05/17 05:02 I reviewed the labs meds, vitals, imaging and progress notes Consult Discharge Plan - Plan Referrals: Jarvis Helton MD [Primary Care Provider] -
[2017-07-05] MEDS: Gabapentin 100 MG CAPSULE PO SCH ×3 (10:12→20:32)
[2017-07-05] MEDS ORDERED: *HR* Heparin 5,000 UNIT/ML VIAL ONE (10:31)
[2017-07-05] MEDS ORDERED: 0.9 % Sodium Chloride 2,000 ML ONE (10:31)
[2017-07-05] MEDS: Budesonide/Formoterol 80/4.5 MDI IH SCH ×2 (11:03→20:02)
[2017-07-05] MEDS: Insulin DETEMIR 100 UNIT/ML X5UNITS SQ SCH (11:40)
[2017-07-05] MEDS: Insulin LISPRO 300 UNITS/3 ML VIAL SQ SCH ×4 (11:43→16:45)
[2017-07-05 13:46] LABS: Activated Partial Thrombo Time 133.5 Seconds (26.0-36.0)
[2017-07-05 14:11] LABS: Heparin anti-factor XA UFH 0.91 IU/mL (0.30-0.70)
--- NOTE | 2017-07-05 14:26 | Cardiology Consult Note ---
Date of Encounter: 07/05/17 Time of Encounter: 14:24 Assessment and Plan (1) Chest pain Current Visit: Yes Status: Acute Per cardiology: -Admitted with chest pain. -Reports while sleeping. -Denies exertional symptoms. -Denies current chest pain. -Troponin 0.04. -No acute ischemic changes. -Recent negative stress test. -Will continue to monitor. Qualifiers: Chest pain type: unspecified Qualified Code(s): R07.9 - Chest pain, unspecified (2) Elevated troponin Current Visit: Yes Status: Acute Per cardiology: -Troponin 0.04 in the setting of ESRD. Appears to have chronically elevated troponins. -Stress 06/28/17 with no evidence of ischemia or infarct. -TTE 07/01/17 with LVEF 55%, mild concentric LVH, moderate diastolic dysfunction , atypical septal motion consistent with BBB, trace pericardial effusion, no segmental wall motion abnormalities. -Denies current chest pain. -NO acute ischemic ECG changes. -Of note, currently requiring Bipap, not normally on Bipap at home. Somewhat lethargic. -On asa, statin, BB, heparin drip. On nitro drip at 5mcg/min. -Do not suspect NSTEMI. No cardiac rehab consult warranted. -Will continue to monitor. (3) ESRD (end stage renal disease) Current Visit: No Status: Chronic Per cardiology: -Known ESRD, ON HD. -Extra dialysis today for volume overload. -Management per primary and nephrology services. (4) Volume overload Current Visit: Yes Status: Acute Per cardiology: -Chest x-ray with pulmonary venous congestion. -Was taken for dialysis today. -Last TTE with LVEF preserved. Qualifiers: Hypervolemia type: unspecified Qualified Code(s): E87.70 - Fluid overload, unspecified Discussion w patient/family: The assessment and plan as outlined above was discussed with the patient who expressed understanding and agreement. All questions were answered. Thank you for involving us in the care of your patient. Please call with any questions. Discussed and reviewed with . History of Present Illness Consult date: 07/05/17 Requesting physician: Willie Ponce Consult reason: chest pain Chief complaint: chest pain History of present illness: Ms. Mata is a 36 year old female with a relevant past medical history of CVA, depression, anxiety, HTN, DM, COPD, ESRD on HD, previous tobacco abuse who presented to [facility] with complaints of chest pain. Patient seen and examined in dialysis unit. Patient currently requiring bipap. Somewhat lethargic. Reports had chest pain while sleeping. Denies aggravating or alleviating factors. Denies exertional chest pain. Denies current chest pain. Past Med Surg Social Fam HX - Past Medical History Attestation: Yes The following information was validated with the patient. Source: patient, old records reviewed Medical history: COPD, CVA, diabetes, hyperlipidemia, hypertension, renal disease Psychiatric history: anxiety, bipolar, depression - Past Surgical History Surgical History: other - Social History Smoking Status: Former smoker Smokeless Tobacco Status: No Alcohol use: none Drug use: none - Family History Mother Hx Family Endocrine Disorder: Yes (DM) Hx Family Neurologic Disorders: Yes (3 CVA) Medications and Allergies Aspirin [Lo-Dose Aspirin EC] 81 mg PO DAILY 06/30/17 [History] Carvedilol [Coreg] 25 mg PO BID 06/30/17 [History] Dextroamphetamine/Amphetamine [Adderall 15 mg Tablet] 15 mg PO BID 06/30/17 [ History] Escitalopram [Lexapro] 20 mg PO DAILY 06/30/17 [History] Gabapentin [Neurontin] 100 mg PO TID 06/30/17 [History] Insulin ASPART [NovoLOG] 20 - 25 unit SQ TID 06/30/17 [History] Insulin DETEMIR [Levemir Flextouch] 40 unit SQ QAM 06/30/17 [History] Norethindrone Acetate [Norethindrone AC (Lupaneta)] 5 mg PO DAILY 06/30/17 [ History] Omeprazole [PriLOSEC] 20 mg PO BIDAC 06/30/17 [History] Budesonide/Formoterol 80/4.5 [Symbicort 80/4.5] 2 puff IH BID 07/05/17 [History ] Hydralazine HCl 50 mg PO TID 07/05/17 [History] 3 Allergy/AdvReac Type Severity Reaction Status Date / Time lisinopril Allergy Anaphylaxis Verified 07/05/17 04:51 naproxen [From Naprosyn] AdvReac See Verified 07/05/17 04:51 Comments All Systems Review: The remainder of the systems were reviewed and are negative - Cardiovascular Cardiovascular: as per HPI, chest pain at rest Physical Examination Vital Signs, Last 4 Hours BP Pulse Ox 07/05/17 13:00 182/75 07/05/17 12:45 172/83 07/05/17 12:30 165/86 07/05/17 12:15 172/84 07/05/17 12:00 180/84 07/05/17 11:45 182/87 07/05/17 11:30 181/93 07/05/17 11:21 99 07/05/17 11:15 177/86 07/05/17 11:00 178/88 07/05/17 10:45 177/88 07/05/17 10:30 176/87 General: Other (Lethargic, arouses to verbal stimuli. ) HEENT: Atraumatic, Normocephaly, Mucus Membranes Moist Neck: No JVD, Normal carotid pulses Cardiac: Reg Rate and Rhythm, Normal S1 and S2, No Murmur Lungs: Other (lung sounds diminished ) Neuro: Other (Lethargic. ) Abdomen: Soft, Non-Tender Skin: No rashes noted on visualized skin Musculoskeletal: No Chest Wall Tenderness Extremities: No Clubbing, No Cyanosis, No Edema, Normal Pulses Results 07/05/17 05:02 07/05/17 05:02 Lab Results Impressions Chest X-Ray 07/05/17 04:49 IMPRESSION: 1. Findings suggestive of borderline cardiomegaly and pulmonary venous congestion. D/ / 07/05/2017 07:42:19 Delvis Cui MD / sin Interpreting Provider: Delvis Cui MD Pulmonary Perfusion Imaging 07/05/17 05:30 IMPRESSION: 1. Low probability for pulmonary embolism 2. Ventilation findings suggestive of COPD D/ / 07/05/2017 07:57:44 Delvis Cui MD / sin Interpreting Provider: Delvis Cui MD Active Medications Aspirin (Aspirin Ec) 81 mg PO DAILY [facility] Stop: 01/05/18 09:01 Atorvastatin Calcium (Lipitor) 80 mg PO DAILY [facility] Stop: 01/04/18 09:11 Last Admin: 07/05/17 10:12 Dose: 80 mg Budesonide/Formoterol Fumarate (Symbicort) 2 puff IH BIDR [facility] PRN Reason: Protocol Stop: 01/04/18 10:01 Last Admin: 07/05/17 11:03 Dose: Not Given Carvedilol (Coreg) 25 mg PO BIDWM [facility] PRN Reason: Protocol Stop: 01/04/18 09:01 Dextrose/Water (Dextrose 50% (Syg)) 25 ml IVP AD PRN PRN Reason: Hypoglycemia Stop: 01/04/18 08:30 Escitalopram Oxalate (Lexapro) 20 mg PO DAILY [facility] Stop: 01/04/18 09:01 Last Admin: 07/05/17 10:12 Dose: 20 mg Gabapentin (Neurontin) 100 mg PO TID [facility] Stop: 01/04/18 09:01 Last Admin: 07/05/17 10:12 Dose: 100 mg Glucagon (Glucagen) 1 mg IM ONCE PRN PRN Reason: Hypoglycemia Stop: 01/04/18 08:30 Glucose (Gluctose) 15 gm PO ONCE PRN PRN Reason: Hypoglycemia Stop: 01/04/18 08:30 Glucose (Gluctose) 30 gm PO ONCE PRN PRN Reason: Hypoglycemia Stop: 01/04/18 08:30 Heparin Sodium (Porcine) (Heparin) 4,000 unit IVP Q6HR PRN PRN Reason: SEE COMMENTS Stop: 01/04/18 06:13 Heparin Sodium (Porcine) (Heparin) 2,000 unit IVP Q6H PRN PRN Reason: SEE COMMENTS Stop: 01/04/18 06:13 Hydralazine HCl (Hydralazine) 50 mg PO TID [facility] Stop: 01/04/18 09:01 Last Admin: 07/05/17 14:36 Dose: Not Given Heparin Sodium/Dextrose (Heparin 25,000 Unit/500 Ml D5w) 25,000 unit in 500 mls @ 20.108 mls/hr IVC .Q24H [facility]; 11 UNIT/KG/HR PRN Reason: Protocol Stop: 01/04/18 06:16 Last Titration: 07/05/17 13:49 Dose: 0 unit/kg/hr, 0 mls/hr Nitroglycerin (Nitroglycerin Premix 25 Mg/250 Ml) 25 mg in 250 mls @ 3 mls/hr IVC .Q24H [facility]; 5 MCG/MIN PRN Reason: Protocol Stop: 01/04/18 07:01 Last Admin: 07/05/17 08:03 Dose: 5 mcg/min, 3 mls/hr Dextrose (Dextrose 5%) 1,000 mls @ 100 mls/hr IVC .Q10H PRN PRN Reason: HYPOGLYCEMIA Stop: 01/04/18 08:30 Sodium Chloride (0.9 % Sodium Chloride) 250 mls @ 937.5 mls/hr IVC .Q16M PRN PRN Reason: Hypotension Stop: 01/04/18 08:33 Insulin Detemir (Levemir) 40 unit SQ QAM [facility] Stop: 01/04/18 09:01 Last Admin: 07/05/17 11:40 Dose: 40 unit Insulin Human Lispro (Humalog) 20 units SQ TIDWM [facility] Last Admin: 07/05/17 14:35 Dose: Not Given Insulin Human Lispro (Humalog) 0 units SQ HS [facility] PRN Reason: Protocol Stop: 01/04/18 21:01 Insulin Human Lispro (Humalog) 0 units SQ TIDAC [facility] PRN Reason: Protocol Stop: 01/04/18 11:31 Last Admin: 07/05/17 11:43 Dose: Not Given Naloxone HCl (Narcan) 0.4 mg IVP Q2MIN PRN PRN Reason: SEE COMMENTS Stop: 01/04/18 08:28 Norethindrone Acetate (Norethindrone Acetate) 5 mg PO DAILY [facility] Stop: 01/04/18 09:01 Last Admin: 07/05/17 10:12 Dose: 5 mg Omeprazole (Prilosec) 20 mg PO BIDAC [facility] PRN Reason: Protocol Stop: 01/04/18 16:31 Pharmacy Profile Note (Patient Taking Own Medication) 1 each PO BID [facility] Stop: 01/04/18 09:01 Laboratory Tests 07/05/17 07/05/17 05:02 05:02 Hgb 9.5 L Creatinine 5.87 H Troponin I 0.04 H* - Imaging and Cardiology Chest Xray: report reviewed Stress Test: report reviewed Echo: report reviewed - EKG Interpretation EKG results cardiology: personally reviewed (ECG with SR, LBBB, HR 98.), other ( Telemetry reviewed with average HR previous 12 hours noted to be 82, SR. PACs noted.) Consult Discharge Plan - Plan Referrals: Jarvis Helton MD [Primary Care Provider] -
[2017-07-05] MEDS: hydrALAZINE 25 MG TABLET PO SCH ×3 (14:36→20:32)
[2017-07-05] MEDS: DEXTROAMPHETAMINE PO SCH ×2 (14:57→20:33)
[2017-07-05] MEDS: AMPHETAMINE PO SCH ×2 (14:57→20:33)
[2017-07-05] MEDS: Isosorbide MONOnitrate (24 HR) 30 MG TAB.ER.24H PO SCH (16:44)
--- NOTE | 2017-07-05 17:02 | Electrocardiograph Report ---
[address] [place] [address] Test Date: 2017-07-05 Pat Name: Hansa Mata Department: 104 Room: 2A22 Gender: F [employer]: MIKY : 1980 Requested By: Willie Ponce Order Number: [id number] Reading MD: Matilda Green Measurements Intervals [place] Rate: 98 P: 60 AR: 128 QRS: 35 QRSD: 142 T: 123 QT: 391 QTc: 447 Interpretive Statements SINUS RHYTHM LEFT BUNDLE BRANCH BLOCK Electronically Signed On 07-05-2017 17:01:11 EDT by Matilda Green
[2017-07-05] MEDS ORDERED: Insulin LISPRO 300 UNITS/3 ML VIAL SQ SCH (21:00)
[2017-07-06] MEDS: *HR* Heparin 5,000 UNIT/ML VIAL IVP PRN ×3 (00:14→15:38)
[2017-07-06] MEDS ORDERED: 0.9 % Sodium Chloride 2,000 ML ONE (06:13)
[2017-07-06] MEDS ORDERED: 0.9 % Sodium Chloride 250 ML IVC PRN (06:32)
[2017-07-06] MEDS ORDERED: 0.9 % Sodium Chloride 1,000 ML PRIME SCH (06:45)
[2017-07-06 07:12] LABS: Basophils % 0.2 %; Eosinophils # 0.1 K/mcL (0.0-0.6); Eosinophils % 1.7 %; Hematocrit 26.1 % (35.3-44.9); Hemoglobin 8.2 g/dL (11.5-15.4); Immature Granulocytes % 0.5 % (0-4); Lymphocytes # 1.4 K/mcL (0.6-4.6); Lymphocytes % 33.5 %; Mean Corpuscular HGB Conc 31.4 g/dL (31.6-35.5); Mean Corpuscular Hemoglobin 29.4 pg (28.0-33.3); Mean Corpuscular Volume 93.5 fL (83.0-100.0); Mean Platelet Volume 10.1 fL (9.4-12.4); Monocytes # 0.3 K/mcL (0.0-1.3); Monocytes % 7.2 %; Neutrophils # 2.4 K/mcL (1.6-8.9); Nucleated Red Blood Cells 0.5 /100 WBC (0); Platelet Count 175 K/mcL (140-400); Red Blood Count 2.79 M/mcL (3.82-4.97); Segmented Neutrophils % 56.9 %
[2017-07-06 07:34] LABS: Calcium 8.6 mg/dL (8.6-10.3); Chol/HDL Ratio 3.8 (0-4.9); Magnesium 1.8 mg/dL (1.6-2.6); Phosphorous 3.1 mg/dL (2.7-4.5); Potassium 4.4 mEq/L (3.5-5.1)
[2017-07-06] MEDS: Insulin LISPRO 300 UNITS/3 ML VIAL SQ SCH ×6 (07:54→18:33)
[2017-07-06] MEDS: Gabapentin 100 MG CAPSULE PO SCH ×2 (07:57→15:38)
[2017-07-06] MEDS ORDERED: Aspirin Enteric Coated 81 MG Tablet PO SCH (09:00)
--- NOTE | 2017-07-06 09:59 | Nephrology Progress Note ---
Date of Encounter: 07/06/17 Time of Encounter: 08:30 - Assessment and Plan (1) ESRD (end stage renal disease) on dialysis Current Visit: Yes Status: Chronic Dialysis note: she was tolerating HD well with stable VSS and will plan to challenge her DW, of which the pt said was near 88 kg, to help lower her BPs. Continue home BPs Next HD planned for Tuesday if she remains admitted (2) Dyspnea Current Visit: Yes Status: Acute Qualifiers: Dyspnea type: unspecified Qualified Code(s): R06.00 - Dyspnea, unspecified (3) Uncontrolled hypertension Current Visit: Yes Status: Acute (4) Volume overload Current Visit: Yes Status: Acute Improving Qualifiers: Hypervolemia type: unspecified Qualified Code(s): E87.70 - Fluid overload, unspecified Subjective Principal diagnosis: ESRD Interval history: Pt was s/e while on HD. She reported feeling more alert and now breathing more comfortably. Objective - Vital Signs Vital signs: Vital Signs Temp Pulse Resp BP Pulse Ox 07/06/17 09:05 202/95 07/06/17 08:50 194/88 07/06/17 08:35 187/98 07/06/17 08:20 199/93 07/06/17 08:05 204/98 07/06/17 07:50 211/99 07/06/17 07:35 189/90 07/06/17 07:20 197/92 07/06/17 07:05 98.1 F 15 187/96 07/06/17 04:16 98.1 F 74 17 152/73 98 07/06/17 03:50 17 95 07/06/17 00:30 17 98 07/05/17 23:59 97.8 F 75 17 160/78 100 07/05/17 22:10 18 98 07/05/17 20:24 98.4 F 81 17 121/58 98 07/05/17 20:02 16 98 07/05/17 16:02 98.2 F 84 18 160/76 93 07/05/17 14:30 97.5 F L 17 175/86 07/05/17 14:15 172/84 07/05/17 14:00 171/84 07/05/17 13:45 173/83 07/05/17 13:30 176/81 05/22/18 13:15 175/87 07/05/17 13:00 182/75 07/05/17 12:45 172/83 07/05/17 12:30 165/86 07/05/17 12:15 172/84 07/05/17 12:00 180/84 07/05/17 11:45 182/87 07/05/17 11:30 181/93 07/05/17 11:21 99 07/05/17 11:15 177/86 07/05/17 11:00 178/88 07/05/17 10:45 177/88 07/05/17 10:30 176/87 07/05/17 10:15 97.5 F L 21 Intake and Output 07/05/17 07/06/17 07/06/17 23:59 07:59 15:59 Intake Total 50 / 50 975.5 / 975.5 0 / 0 Balance 50 / 50 975.5 / 975.5 0 / 0 Intake: IV Fluids 375.5 / 375.5 Heparin 25,000 UNIT/500 ML D5W 375.5 / 375.5 25,000 unit In 500 ml @ 11 UNIT /KG/HR 20.108 mls/hr IVC .Q24H [facility] Rx#:[id number] Oral 40 / 40 0 / 0 0 / 0 Other 10 / 10 Intake, Rinseback and Flushes 600 / 600 Other: Meal NPO Percent of Meal Consumed 0% Weight 97 kg Blood Glucose* 54 107 Hemodialysis Net Fluid Removed 910 2408 (mL) Patient Weight 07/06/17 23:59 Weight 97 kg - General Appearance General appearance: Present: well-developed, well-nourished, appears started age , obese EENT: Present: ATNC, PERRL, mucous membranes moist Neck: Present: supple Respiratory: Present: clear Cardiology: Present: edema (nontense pretibial SQ adiposity), regular rate, regular rhythm, normal S1, normal S2 Dialysis Vascular Access: Arteriovenous Fistula (LUE) thrill: Yes bruit: Yes Gastrointestinal: Present: normoactive bowel sounds, no tenderness Integumentary: Present: warm and dry Neurologic: Present: no focal deficit, no asterixis, alert and oriented x3 Musculoskeletal: Present: no erythema, no cyanosis Psychiatric: Present: mood/affect appropriate, cooperative - Lab 07/06/17 06:51 05/23/18 06:51 Most recent lab results Calcium 8.6 mg/dL (8.6-10.3) 07/06/17 06:51 Phosphorus 3.1 mg/dL (2.7-4.5) 07/06/17 06:51 Magnesium 1.8 mg/dL (1.6-2.6) 07/06/17 06:51 Consult Discharge Plan - Plan Referrals: Jarvis Helton MD [Primary Care Provider] -
[2017-07-06] MEDS: Budesonide/Formoterol 80/4.5 MDI IH SCH ×2 (11:06→11:31)
[2017-07-06] MEDS: DEXTROAMPHETAMINE PO SCH (11:19)
[2017-07-06] MEDS: AMPHETAMINE PO SCH (11:19)
[2017-07-06] MEDS: hydrALAZINE 25 MG TABLET PO SCH ×2 (11:34→15:37)
[2017-07-06] MEDS: Isosorbide MONOnitrate (24 HR) 30 MG TAB.ER.24H PO SCH (11:34)
[2017-07-06] MEDS ORDERED: *HR* OxyCODONE/APAP 5/325 TABLET PO PRN (12:20)
[2017-07-06] MEDS: Insulin DETEMIR 100 UNIT/ML X5UNITS SQ SCH (12:29)
[2017-07-06] MEDS: Heparin 25,000 UNIT/500 ML D5W 25,000 UNIT/500 ML BAG IVC SCH (12:38)
--- NOTE | 2017-07-06 12:49 | Cardiology Progress Note ---
Date of Encounter: 07/06/17 Time of Encounter: 11:30 Assessment and Plan (1) Chest pain Current Visit: Yes Status: Acute Per cardiology: -Admitted with chest pain. -Reports while sleeping. -Denies exertional symptoms. -Denies current chest pain. -No acute ischemic changes on ECG. -Recent negative stress test. -Will continue to monitor. -POssible LHC. Qualifiers: Chest pain type: unspecified Qualified Code(s): R07.9 - Chest pain, unspecified (2) Elevated troponin Current Visit: Yes Status: Acute Per cardiology: -Troponin 0.04, 1.3, then 0.03 in the setting of ESRD. -Stress 06/28/17 with no evidence of ischemia or infarct. -TTE 07/01/17 with LVEF 55%, mild concentric LVH, moderate diastolic dysfunction , atypical septal motion consistent with BBB, trace pericardial effusion, no segmental wall motion abnormalities. -Denies current chest pain. -NO acute ischemic ECG changes. -On asa, statin, BB, heparin drip, imdur. -Of note, now with "severe" right sided flank pain. -Can consider LHC, however would recommend work up for right flank pain prior ( CT ordered per primary service). -Will continue to monitor. (3) ESRD (end stage renal disease) Current Visit: No Status: Chronic Per cardiology: -Known ESRD, ON HD. -Extra dialysis today for volume overload. -Management per primary and nephrology services. (4) Volume overload Current Visit: Yes Status: Acute Per cardiology: -Chest x-ray with pulmonary venous congestion. -Was taken for dialysis today. -Last TTE with LVEF preserved. Qualifiers: Hypervolemia type: unspecified Qualified Code(s): E87.70 - Fluid overload, unspecified Discussion w patient/family: The assessment and plan as outlined above was discussed with the patient who expressed understanding and agreement. All questions were answered. Thank you for involving us in the care of your patient. Please call with any questions. Discussed and reviewed with . Subjective Principal diagnosis: Chest pain Interval history: Pateint denies chest pain today. More awake, alert and oriented today. Patient complaining of severe right flank pain. Objective Vital Signs, Last 4 Hours Temp Pulse Resp BP Pulse Ox 07/06/17 11:51 98.2 F 87 22 173/80 98 07/06/17 11:32 18 98 07/06/17 10:20 97.7 F 17 198/95 07/06/17 10:05 202/93 07/06/17 09:50 170/90 07/06/17 09:35 181/97 07/06/17 09:20 201/97 07/06/17 09:05 202/95 07/06/17 08:50 194/88 General: Conversant, No Apparent Distress HEENT: Atraumatic, Normocephaly, Mucus Membranes Moist Neck: No JVD, Normal carotid pulses Cardiac: Reg Rate and Rhythm, Normal S1 and S2, No Murmur Lungs: Normal Breath Sounds, No Wheeze, Rales, Rhonchi Neuro: Alert and responsive, No focal deficits noted Abdomen: Soft, Non-Tender Skin: No rashes noted on visualized skin Musculoskeletal: No Chest Wall Tenderness Extremities: No Clubbing, No Cyanosis, No Edema, Normal Pulses Results 07/06/17 06:51 07/06/17 06:51 Lab Results Active Medications Aspirin (Aspirin Ec) 81 mg PO DAILY [facility] Stop: 01/05/18 09:01 Last Admin: 07/06/17 07:57 Dose: 81 mg Atorvastatin Calcium (Lipitor) 80 mg PO DAILY [facility] Stop: 01/04/18 09:11 Last Admin: 07/06/17 07:57 Dose: 80 mg Budesonide/Formoterol Fumarate (Symbicort) 2 puff IH BIDR [facility] PRN Reason: Protocol Stop: 01/04/18 10:01 Last Admin: 07/06/17 11:31 Dose: 2 puff Carvedilol (Coreg) 25 mg PO BIDWM [facility] PRN Reason: Protocol Stop: 01/04/18 09:01 Last Admin: 07/06/17 11:35 Dose: 25 mg Dextrose/Water (Dextrose 50% (Syg)) 25 ml IVP AD PRN PRN Reason: Hypoglycemia Stop: 01/04/18 08:30 Escitalopram Oxalate (Lexapro) 20 mg PO DAILY [facility] Stop: 01/04/18 09:01 Last Admin: 07/06/17 07:57 Dose: 20 mg Gabapentin (Neurontin) 100 mg PO TID [facility] Stop: 01/04/18 09:01 Last Admin: 07/06/17 07:57 Dose: 100 mg Glucagon (Glucagen) 1 mg IM ONCE PRN PRN Reason: Hypoglycemia Stop: 01/04/18 08:30 Glucose (Gluctose) 15 gm PO ONCE PRN PRN Reason: Hypoglycemia Stop: 01/04/18 08:30 Glucose (Gluctose) 30 gm PO ONCE PRN PRN Reason: Hypoglycemia Stop: 01/04/18 08:30 Heparin Sodium (Porcine) (Heparin) 4,000 unit IVP Q6HR PRN PRN Reason: SEE COMMENTS Stop: 01/04/18 06:13 Last Admin: 07/06/17 07:57 Dose: 4,000 unit Heparin Sodium (Porcine) (Heparin) 2,000 unit IVP Q6H PRN PRN Reason: SEE COMMENTS Stop: 01/04/18 06:13 Hydralazine HCl (Hydralazine) 50 mg PO TID [facility] Stop: 01/04/18 09:01 Last Admin: 07/06/17 11:34 Dose: 50 mg Heparin Sodium/Dextrose (Heparin 25,000 Unit/500 Ml D5w) 25,000 unit in 500 mls @ 20.108 mls/hr IVC .Q24H [facility]; 11 UNIT/KG/HR PRN Reason: Protocol Stop: 01/04/18 06:16 Last Admin: 07/06/17 12:38 Dose: 16.73 unit/kg/hr, 30.6 mls/hr Dextrose (Dextrose 5%) 1,000 mls @ 100 mls/hr IVC .Q10H PRN PRN Reason: HYPOGLYCEMIA Stop: 01/04/18 08:30 Sodium Chloride (0.9 % Sodium Chloride) 250 mls @ 937.5 mls/hr IVC .Q16M PRN PRN Reason: Hypotension Stop: 01/05/18 06:33 Sodium Chloride (0.9 % Sodium Chloride) 1,000 mls @ 0 mls/hr PRIME .Q0M [facility] PRN Reason: As Directed Stop: 01/05/18 06:46 Insulin Detemir (Levemir) 40 unit SQ QAM [facility] Stop: 01/04/18 09:01 Last Admin: 07/06/17 12:29 Dose: Not Given Insulin Human Lispro (Humalog) 20 units SQ TIDWM [facility] Last Admin: 07/06/17 12:29 Dose: Not Given Insulin Human Lispro (Humalog) 0 units SQ HS [facility] PRN Reason: Protocol Stop: 01/04/18 21:01 Last Admin: 07/05/17 20:33 Dose: Not Given Insulin Human Lispro (Humalog) 0 units SQ TIDAC [facility] PRN Reason: Protocol Stop: 01/04/18 11:31 Last Admin: 07/06/17 12:29 Dose: Not Given Isosorbide Mononitrate (Imdur) 30 mg PO DAILY [facility] Stop: 01/04/18 16:16 Last Admin: 07/06/17 11:34 Dose: 30 mg Naloxone HCl (Narcan) 0.4 mg IVP Q2MIN PRN PRN Reason: SEE COMMENTS Stop: 01/04/18 08:28 Norethindrone Acetate (Norethindrone Acetate) 5 mg PO DAILY [facility] Stop: 01/04/18 09:01 Last Admin: 07/06/17 07:57 Dose: 5 mg Omeprazole (Prilosec) 20 mg PO BIDAC [facility] PRN Reason: Protocol Stop: 01/04/18 16:31 Last Admin: 07/06/17 07:56 Dose: 20 mg Oxycodone/Acetaminophen (Percocet 5/325) 1 each PO Q6HR PRN PRN Reason: Pain Stop: 01/05/18 12:21 Pharmacy Profile Note (Patient Taking Own Medication) 1 each PO BID [facility] Stop: 01/04/18 09:01 Last Admin: 07/06/17 11:19 Dose: Not Given Laboratory Tests 07/05/17 07/05/17 07/05/17 05:02 15:51 22:06 WBC Hgb Troponin I 0.04 H* 1.30 H* 0.03 07/06/17 06:51 WBC 4.2 L Hgb 8.2 L Troponin I - Imaging and Cardiology Chest Xray: report reviewed Stress Test: report reviewed Echo: report reviewed - EKG Interpretation EKG results cardiology: other (Telemetry reviewed with average HR previous 12 hours noted to be79, SR, PACs noted.) Consult Discharge Plan - Plan Referrals: Jarvis Helton MD [Primary Care Provider] - 07/14/17 10:45 am
[2017-07-06] MEDS ORDERED: amLODIPine 5 MG TABLET PO SCH (14:00)
[2017-07-06 16:07] VITALS: BP 145/62
--- NOTE | 2017-07-06 16:20 | Discharge Summary ---
- NOTES TO OUTPATIENT PROVIDER Notes to Outpatient Provider: Follow-up on blood pressures for hypertension management Orders not resulted at time of discharge: Pending orders 07/07/17 04:00 Basic Metabolic Panel AM 0400 CBC [Complete Blood Count] [HEME] AM 0400 Date of Encounter: 07/06/17 Time of Encounter: 11:00 - Discharge Diagnosis (1) Chest pain Priority: Primary Status: Acute Qualifiers: Chest pain type: unspecified Qualified Code(s): R07.9 - Chest pain, unspecified (2) Diabetes Priority: Secondary Status: Chronic Qualifiers: Diabetes mellitus type: type 1 Diabetes mellitus complication status: with unspecified complications Qualified Code(s): E10.8 - Type 1 diabetes mellitus with unspecified complications (3) Anemia due to stage 5 chronic kidney disease Priority: Secondary Status: Chronic (4) Dyspnea Priority: Secondary Status: Acute Qualifiers: Dyspnea type: unspecified Qualified Code(s): R06.00 - Dyspnea, unspecified (5) Elevated troponin Priority: Primary Status: Acute (6) CVA (cerebral vascular accident) Priority: Secondary Status: Chronic Qualifiers: CVA mechanism: unspecified Qualified Code(s): I63.9 - Cerebral infarction, unspecified (7) Volume overload Priority: Secondary Status: Acute Qualifiers: Hypervolemia type: unspecified Qualified Code(s): E87.70 - Fluid overload, unspecified (8) ESRD (end stage renal disease) on dialysis Priority: Secondary Status: Chronic (9) Obesity (BMI 30-39.9) Priority: Secondary Status: Chronic (10) Uncontrolled hypertension Priority: Primary Status: Acute Hospital course: Patient is a 36-year-old female with past medical history significant for ESRD on HD, COPD, s/p CVA, HTN, DM who presented to the ER on 07/05/17 due to chest pain. She reported of having localized, sharp chest pain that woke her up from sleep. Denied any alleviating or exacerbating factors. She stated that this is the same chest pain that she had few days prior to this admission when she was admitted to the hospital and underwent complete cardiac work up which ruled out ACS. In the ER, patient was positive for mild elevation of TNI, which has been unchanged from her previous levels. She received aspirin and cardiology evaluation was requested by the ER physician. Patient was started on heparin gtt as per the senior research project manager's recommendation. Patient was admitted to medical surgical floor for ACS rule out. During patients hospital stay, cardiology evaluated patient and determined elevated troponin secondary to demand ischemia due to elevated blood pressures. Medications for blood pressure control were added (Imdur and Norvasc). Patients blood pressures were better controlled after oral medications were started and she will be discharged to follow up with primary care provider. - Time Spent with Patient Total time spent providing and/or coordinating discharge services: Less than 30 minutes - Discharge Medications Prescriptions: amLODIPine [Norvasc] 5 mg PO DAILY #30 tablet Atorvastatin [Lipitor] 80 mg PO DAILY #30 tablet Isosorbide MONOnitrate (24 HR) [Imdur] 30 mg PO DAILY #30 tab.er.24h Home Medications: Aspirin [Lo-Dose Aspirin EC] 81 mg PO DAILY 06/30/17 [History] Carvedilol [Coreg] 25 mg PO BID 06/30/17 [History] Dextroamphetamine/Amphetamine [Adderall 15 mg Tablet] 15 mg PO BID 06/30/17 [ History] Escitalopram [Lexapro] 20 mg PO DAILY 06/30/17 [History] Gabapentin [Neurontin] 100 mg PO TID 06/30/17 [History] Insulin ASPART [NovoLOG] 20 - 25 unit SQ TID 06/30/17 [History] Insulin DETEMIR [Levemir Flextouch] 40 unit SQ QAM 06/30/17 [History] Norethindrone Acetate [Norethindrone AC (Lupaneta)] 5 mg PO DAILY 06/30/17 [ History] Omeprazole [PriLOSEC] 20 mg PO BIDAC 06/30/17 [History] Budesonide/Formoterol 80/4.5 [Symbicort 80/4.5] 2 puff IH BID 07/05/17 [History ] Hydralazine HCl 50 mg PO TID 07/05/17 [History] Atorvastatin [Lipitor] 80 mg PO DAILY #30 tablet 07/06/17 [Rx] Isosorbide MONOnitrate (24 HR) [Imdur] 30 mg PO DAILY #30 tab.er.24h 07/06/17 [ Rx] amLODIPine [Norvasc] 5 mg PO DAILY #30 tablet 07/06/17 [Rx] Allergies/Adverse Reactions: 3 Allergy/AdvReac Type Severity Reaction Status Date / Time lisinopril Allergy Anaphylaxis Verified 07/05/17 04:51 naproxen [From Naprosyn] AdvReac See Verified 07/05/17 04:51 Comments Date of admission: 07/05/17 08:15 Primary care physician: Jarvis Helton, Consults: 07/05/17 08:26 Consult to Nephrology [CONS] Routine Consulting Provider: Kidney Shea/EULALIA/EDGARDO/BLACK Reason for Consult: volume overload, ESRD on HD Call Completed: Yes 07/05/17 08:45 Consult to Dialysis [CONS] ONCE 07/06/17 06:45 Consult to Dialysis [CONS] ONCE - Constitutional Vitals: Temp Pulse Resp BP Pulse Ox 98.2 F 80 22 145/62 98 07/06/17 11:51 07/06/17 16:06 07/06/17 11:51 07/06/17 16:06 07/06/17 11:51 General appearance: Present: A&O X 3, no acute distress, obese - Respiratory Respiratory exam: Present: CTAB. Absent: accessory muscle use, rales, rhonchi, wheezes - Cardiovascular Cardiovascular exam: Present: RRR, +S1, +S2. Absent: diastolic murmur, gallop, rubs, systolic murmur - Patient Status Disposition: Home, Self-Care Condition: Fair - Discharge Instructions Follow Up With: Jarvis Helton MD [Primary Care Provider] - 07/14/17 10:45 am
== END 2017-07-06 19:10 | disposition home or self-care (01) ==
LOC: EMEROO 04:38 → 2ANU 08:15 → INTOOBSV 08:15 → 2ANU 08:59
PROVIDERS: ADMIT Internal Medicine; ATTEND Internal Medicine

== ENCOUNTER 2018-12-29 17:04 | Inpatient (IN) ==
[~2018-12-29 17:04] MED LIST: *HR* LORazepam 2 MG/ML VIAL IVP ONE; *HR* Midazolam HCl 2 MG/2 ML VIAL IV ONE; *HR* Midazolam HCl 5 MG/5 ML VIAL IVP ONE; *HR* Succinylcholine 200 MG/10 ML VIAL IVP ONE
[2018-12-29] MEDS ORDERED: Ipratropium/Albuterol Neb 3 ML IH ONE (17:11)
[2018-12-29 17:31] LABS: Basophils # 0.1 K/mcL (0.0-0.2); Basophils % 0.7 %; Eosinophils # 0.1 K/mcL (0.0-0.6); Eosinophils % 1.1 %; Hematocrit 26.7 % (35.3-44.9); Hemoglobin 8.4 g/dL (11.5-15.4); Immature Granulocytes % 0.5 % (0-4); Lymphocytes % 13.5 %; Mean Corpuscular HGB Conc 31.5 g/dL (31.6-35.5); Mean Corpuscular Volume 92.1 fL (83.0-100.0); Mean Platelet Volume 9.2 fL (9.4-12.4); Monocytes # 0.7 K/mcL (0.0-1.3); Monocytes % 9.7 %; Neutrophils # 5.5 K/mcL (1.6-8.9); Platelet Count 298 K/mcL (140-400); Red Cell Distribution Width 16.9 % (11.5-14.5); Segmented Neutrophils % 74.5 %; White Blood Count 7.4 K/mcL (4.3-11.1)
[2018-12-29 17:39] LABS: INR 1.4; Prothrombin Time 16.4 Seconds (9.4-12.1)
[2018-12-29 17:50] LABS: ABG Base Excess -1 mEq/L (-2 to 3); ABG HCO3 26 mEq/L (21-27); ABG Oxygen Saturation 66 % (95-98); ABG PCO2 52 mmHg (35-45); ABG PH 7.31 pH Units (7.32-7.45); ABG PO2 38 mmHg (85-104); ABG TCO2 28 mEq/L (20-26)
[2018-12-29 17:57] LABS: Albumin 3.2 g/dL (3.5-5.7); Albumin/Globulin Ratio 0.7 (1.1-2.2); Bilirubin,Total 1.4 mg/dL (0.3-1.0); Calcium 9.2 mg/dL (8.6-10.3); Globulin 4.8 g/dL (2.4-3.5); Magnesium 1.6 mg/dL (1.6-2.6); Potassium 4.7 mEq/L (3.5-5.1); Troponin I 0.1 ng/mL (< 0.04)
[2018-12-29 18:33] LABS: Phosphorous 5.1 mg/dL (2.7-4.5)
[2018-12-29] MEDS ORDERED: *HR* FentaNYL (PF) 100 MCG/2 ML VIAL IVP ONE (19:07)
[2018-12-29 19:15] LABS: Mixed Venous Blood pCO2 41 mmHg (44-46); Mixed Venous Blood pH 7.42 pH Units (7.34-7.36); Mixed Venous Blood pO2 43 mmHg (35-45)
[2018-12-29 22:13] LABS: ABG Base Excess 1 mEq/L (-2 to 3); ABG HCO3 27 mEq/L (21-27); ABG Oxygen Saturation 94 % (95-98); ABG PCO2 46 mmHg (35-45); ABG PH 7.37 pH Units (7.32-7.45); ABG PO2 76 mmHg (85-104); ABG TCO2 28 mEq/L (20-26); Blood Gas Modality BiLevel
[2018-12-29] MEDS ORDERED: Ondansetron 4 MG/2 ML VIAL ONE (22:25)
[2018-12-29] MEDS ORDERED: Ondansetron 4 MG/2 ML VIAL IVP PRN (22:25)
[2018-12-29] MEDS ORDERED: Albuterol 2.5 MG/3 ML NEBULIZER IH PRN (22:58)
[2018-12-29] MEDS ORDERED: Naloxone 0.4 MG/ML INJ IVP PRN (23:03)
[2018-12-29] MEDS ORDERED: D5% in Water 1,000 ML IVC PRN (23:20)
[2018-12-29] MEDS ORDERED: Dextrose Gel 15 GM/37.5 ML TUBE PO PRN ×2 (23:20)
[2018-12-29] MEDS: FentaNYL (PF) 1,000 MCG in 0.9 % Sodium Chloride 80 ML IVC SCH (23:22)
[2018-12-29] MEDS: Pantoprazole 40 MG VIAL IVP SCH (23:24)
[2018-12-29] MEDS: Ipratropium/Albuterol Neb 3 ML IH SCH (23:29)
[2018-12-29] MEDS ORDERED: Acetaminophen IV 1,000 MG/100 ML INFUS..BTL IVPB ONE (23:31)
[2018-12-29] MEDS: Insulin LISPRO 300 UNITS/3 ML VIAL SQ SCH (23:53)
[2018-12-30] MEDS: Ipratropium/Albuterol Neb 3 ML IH SCH ×4 (04:23→21:30)
[2018-12-30 04:57] LABS: Hematocrit 21.3 % (35.3-44.9); Mean Corpuscular HGB Conc 31.5 g/dL (31.6-35.5); Mean Corpuscular Hemoglobin 29.4 pg (28.0-33.3); Mean Corpuscular Volume 93.4 fL (83.0-100.0); Mean Platelet Volume 9.4 fL (9.4-12.4); Platelet Count 237 K/mcL (140-400); Red Blood Count 2.28 M/mcL (3.82-4.97); White Blood Count 4.8 K/mcL (4.3-11.1)
[2018-12-30 04:59] LABS: ABG Base Excess 1 mEq/L (-2 to 3); ABG HCO3 28 mEq/L (21-27); ABG Oxygen Saturation 93 % (95-98); ABG PCO2 55 mmHg (35-45); ABG PH 7.31 pH Units (7.32-7.45); ABG PO2 75 mmHg (85-104); ABG TCO2 29 mEq/L (20-26); Blood Gas Modality AF; Blood Gas VT 400 cc
[2018-12-30 05:17] LABS: Albumin 2.7 g/dL (3.5-5.7); Albumin/Globulin Ratio 0.7 (1.1-2.2); Bilirubin,Total 1.1 mg/dL (0.3-1.0); Calcium 8.6 mg/dL (8.6-10.3); Globulin 4.1 g/dL (2.4-3.5); Hemoglobin 6.7 g/dL (11.5-15.4); Magnesium 1.6 mg/dL (1.6-2.6); Phosphorous 5.7 mg/dL (2.7-4.5); Potassium 4.4 mEq/L (3.5-5.1); Total Protein 6.8 g/dL (6.4-8.9)
[2018-12-30] MEDS ORDERED: 0.9 % Sodium Chloride 250 ML ONE (05:37)
[2018-12-30] MEDS ORDERED: *HR* Heparin 10,000 UNIT/10 ML VIAL IV PRN (06:04)
[2018-12-30] MEDS ORDERED: 0.9 % Sodium Chloride 250 ML IVC PRN (06:04)
[2018-12-30] MEDS ORDERED: 0.9 % Sodium Chloride 1,000 ML PRIME SCH (06:15)
[2018-12-30] MEDS: Insulin LISPRO 300 UNITS/3 ML VIAL SQ SCH ×3 (06:18→18:05)
[2018-12-30] MEDS: Pantoprazole 40 MG VIAL IVP SCH (07:21)
[2018-12-30 08:25] LABS: Hematocrit 26.8 % (35.3-44.9)
[2018-12-30 08:31] LABS: Hemoglobin 8.6 g/dL (11.5-15.4)
[2018-12-30] MEDS ORDERED: Dexmedetomidine HCl 400 MCG/100 ML MLS IVC ONE (08:38)
[2018-12-30] MEDS: FentaNYL (PF) 1,000 MCG in 0.9 % Sodium Chloride 80 ML IVC SCH ×2 (08:42→17:59)
[2018-12-30 09:06] LABS: Hepatitis B Surface Antibody > 850.00 mIU/mL
[2018-12-30 09:16] LABS: Hepatitis B Surface Antigen Nonreactive (Nonreactive)
[2018-12-30] MEDS: Dexmedetomidine HCl 400 MCG/100 ML MLS IVC SCH ×2 (09:17→18:02)
[2018-12-30] MEDS ORDERED: Artificial Tears SOLN 15 ML BOTTLE BOTH EYES PRN (09:28)
[2018-12-30] MEDS: Budesonide/Formoterol 160/4.5 1 PUFF INH IH SCH ×2 (10:36→21:30)
[2018-12-30] MEDS: predniSONE 20 MG TABLET PO SCH (10:42)
[2018-12-30] MEDS: Artificial Tears SOLN 15 ML BOTTLE BOTH EYES SCH ×3 (10:44→20:16)
[2018-12-30 11:15] LABS: ABG Base Excess 2 mEq/L (-2 to 3); ABG HCO3 30 mEq/L (21-27); ABG Oxygen Saturation 86 % (95-98); ABG PCO2 59 mmHg (35-45); ABG PH 7.32 pH Units (7.32-7.45); ABG PO2 57 mmHg (85-104); ABG TCO2 32 mEq/L (20-26); Blood Gas Modality ASSIST CONTROL; Blood Gas VT 400 cc
[2018-12-30 11:37] LABS: Adenovirus Not Detected (Not Detect); Bordetella Pertussis Not Detected (Not Detect); Chlamydophila pneumoniae Not Detected (Not Detect); Coronavirus 229E Not Detected (Not Detect); Coronavirus HKU1 Not Detected (Not Detect); Coronavirus NL63 Not Detected (Not Detect); Coronavirus OC43 Not Detected (Not Detect); Human Metapneumovirus Not Detected (Not Detect); Human Rhinovirus/Enterovirus Not Detected (Not Detect); Influenza A Subtype 2009 H1 Not Detected (Not Detect); Influenza A Untypeable Not Detected (Not Detect); Influenza B Not Detected (Not Detect); Mycoplasma pneumoniae Not Detected (Not Detect); Parainfluenza Virus 1 Not Detected (Not Detect); Parainfluenza Virus 2 Not Detected (Not Detect); Parainfluenza Virus 3 Not Detected (Not Detect); Parainfluenza Virus 4 Not Detected (Not Detect); Respiratory Syncytial Virus DETECTED (Not Detect)
[2018-12-30] MEDS: Piperacillin/Tazobactam 3.375 GM in 0.9 % Sodium Chloride Mini Bag 100 ML IVPB SCH (13:12)
[2018-12-30] MEDS ORDERED: Acetaminophen IV 1,000 MG/100 ML INFUS..BTL IVPB ONE (15:15)
[2018-12-30] MEDS: *HR* Heparin 5,000 UNIT/ML VIAL SQ SCH (17:44)
[2018-12-30] MEDS: Chlorhexidine Rinse 15 ML MOUTHWASH MM SCH (20:16)
[2018-12-31] MEDS: Artificial Tears SOLN 15 ML BOTTLE BOTH EYES SCH ×6 (00:25→19:56)
[2018-12-31] MEDS: Insulin LISPRO 300 UNITS/3 ML VIAL SQ SCH ×4 (00:26→17:19)
[2018-12-31] MEDS: Piperacillin/Tazobactam 3.375 GM in 0.9 % Sodium Chloride Mini Bag 100 ML IVPB SCH (02:34)
[2018-12-31] MEDS: FentaNYL (PF) 1,000 MCG in 0.9 % Sodium Chloride 80 ML IVC SCH (04:23)
[2018-12-31 04:49] LABS: ABG Base Excess 2 mEq/L (-2 to 3); ABG HCO3 28 mEq/L (21-27); ABG Oxygen Saturation 93 % (95-98); ABG PCO2 46 mmHg (35-45); ABG PH 7.39 pH Units (7.32-7.45); ABG PO2 68 mmHg (85-104); ABG TCO2 29 mEq/L (20-26); Blood Gas Modality AF; Blood Gas VT 400 cc
[2018-12-31] MEDS: Ipratropium/Albuterol Neb 3 ML IH SCH ×4 (05:25→22:13)
[2018-12-31] MEDS: Pantoprazole 40 MG VIAL IVP SCH (05:28)
[2018-12-31] MEDS: *HR* Heparin 5,000 UNIT/ML VIAL SQ SCH ×2 (05:28→16:56)
[2018-12-31 07:06] LABS: Basophils % 0.2 %; Eosinophils % 0.2 %; Hematocrit 25.1 % (35.3-44.9); Hemoglobin 7.8 g/dL (11.5-15.4); Immature Granulocytes % 0.5 % (0-4); Lymphocytes # 0.5 K/mcL (0.6-4.6); Lymphocytes % 9.2 %; Mean Corpuscular HGB Conc 31.1 g/dL (31.6-35.5); Mean Corpuscular Volume 93.3 fL (83.0-100.0); Mean Platelet Volume 9.7 fL (9.4-12.4); Monocytes # 0.6 K/mcL (0.0-1.3); Monocytes % 9.9 %; Neutrophils # 4.4 K/mcL (1.6-8.9); Platelet Count 217 K/mcL (140-400); Red Blood Count 2.69 M/mcL (3.82-4.97); White Blood Count 5.5 K/mcL (4.3-11.1)
[2018-12-31] MEDS: predniSONE 20 MG TABLET PO SCH (07:16)
[2018-12-31] MEDS: Chlorhexidine Rinse 15 ML MOUTHWASH MM SCH ×2 (07:16→19:56)
[2018-12-31] MEDS: Dexmedetomidine HCl 400 MCG/100 ML MLS IVC SCH (07:16)
[2018-12-31 07:29] LABS: Calcium 8.9 mg/dL (8.6-10.3); Magnesium 1.7 mg/dL (1.6-2.6); Potassium 4.4 mEq/L (3.5-5.1)
[2018-12-31 08:15] LABS: Troponin I 0.14 ng/mL (< 0.04)
[2018-12-31] MEDS ORDERED: Vancomycin 500 MG in 0.9 % Sodium Chloride Mini Bag 100 ML IVPB ONE (09:00)
[2018-12-31] MEDS ORDERED: *HR* Midazolam HCl 2 MG/2 ML VIAL IVP ONE (09:11)
[2018-12-31] MEDS ORDERED: Aminoglycoside Consult 1 EACH MC ONE (09:38)
[2018-12-31] MEDS: Azithromycin 500 MG in 0.9 % Sodium Chloride 250 ML IVPB SCH (10:00)
[2018-12-31] MEDS: Budesonide/Formoterol 160/4.5 1 PUFF INH IH SCH ×2 (10:07→22:13)
[2018-12-31] MEDS: cefTRIAXone 2,000 MG in Water for inj. (sterile) 20 ML IVP SCH (10:07)
[2018-12-31] MEDS: Insulin DETEMIR 100 UNIT/ML X5UNITS SQ SCH ×2 (11:19→20:20)
[2019-01-01] MEDS: Insulin LISPRO 300 UNITS/3 ML VIAL SQ SCH ×4 (01:17→18:08)
[2019-01-01] MEDS: Artificial Tears SOLN 15 ML BOTTLE BOTH EYES SCH ×7 (03:25→23:25)
[2019-01-01] MEDS: Ipratropium/Albuterol Neb 3 ML IH SCH ×4 (03:56→23:23)
[2019-01-01 04:58] LABS: ABG Base Excess 3 mEq/L (-2 to 3); ABG HCO3 29 mEq/L (21-27); ABG Oxygen Saturation 99 % (95-98); ABG PCO2 50 mmHg (35-45); ABG PH 7.37 pH Units (7.32-7.45); ABG PO2 136 mmHg (85-104); ABG TCO2 30 mEq/L (20-26); Blood Gas Modality ASSIST CONTROL; Blood Gas VT 400 cc
[2019-01-01] MEDS: *HR* Heparin 5,000 UNIT/ML VIAL SQ SCH ×2 (05:13→17:57)
[2019-01-01] MEDS: Pantoprazole 40 MG VIAL IVP SCH ×2 (05:13→19:41)
[2019-01-01] MEDS: *HR* Dextrose 50 % in Water (Syg) 50 ML SYRINGE IVP PRN ×2 (05:37→12:25)
[2019-01-01 06:17] LABS: Eosinophils % 0.2 %; Hematocrit 24.9 % (35.3-44.9); Hemoglobin 7.7 g/dL (11.5-15.4); Immature Granulocytes % 0.4 % (0-4); Lymphocytes # 0.8 K/mcL (0.6-4.6); Lymphocytes % 14.3 %; Mean Corpuscular HGB Conc 30.9 g/dL (31.6-35.5); Mean Corpuscular Hemoglobin 28.4 pg (28.0-33.3); Mean Corpuscular Volume 91.9 fL (83.0-100.0); Mean Platelet Volume 9.6 fL (9.4-12.4); Monocytes # 0.4 K/mcL (0.0-1.3); Monocytes % 7.1 %; Neutrophils # 4.1 K/mcL (1.6-8.9); Platelet Count 239 K/mcL (140-400); Red Blood Count 2.71 M/mcL (3.82-4.97); Red Cell Distribution Width 16.8 % (11.5-14.5); White Blood Count 5.2 K/mcL (4.3-11.1)
[2019-01-01 06:35] LABS: Calcium 8.8 mg/dL (8.6-10.3); Potassium 4.2 mEq/L (3.5-5.1)
[2019-01-01] MEDS ORDERED: Water for inj. (sterile) 20 ML IV ONE (08:51)
[2019-01-01] MEDS: Chlorhexidine Rinse 15 ML MOUTHWASH MM SCH ×2 (09:02→19:41)
[2019-01-01] MEDS: Insulin DETEMIR 100 UNIT/ML X5UNITS SQ SCH ×2 (09:02→19:41)
[2019-01-01] MEDS: predniSONE 20 MG TABLET PO SCH (09:03)
[2019-01-01] MEDS: Azithromycin 500 MG in 0.9 % Sodium Chloride 250 ML IVPB SCH (09:04)
[2019-01-01] MEDS: cefTRIAXone 2,000 MG in Water for inj. (sterile) 20 ML IVP SCH (09:04)
[2019-01-01] MEDS: Budesonide/Formoterol 160/4.5 1 PUFF INH IH SCH ×2 (09:50→23:23)
[2019-01-01 10:11] LABS: Hemoglobin 8.1 g/dL (11.5-15.4)
[2019-01-02] MEDS: Insulin LISPRO 300 UNITS/3 ML VIAL SQ SCH ×5 (00:05→23:24)
[2019-01-02] MEDS: Artificial Tears SOLN 15 ML BOTTLE BOTH EYES SCH ×6 (03:04→23:24)
[2019-01-02] MEDS: Ipratropium/Albuterol Neb 3 ML IH SCH ×4 (03:58→23:08)
[2019-01-02 04:51] LABS: ABG Base Excess 2 mEq/L (-2 to 3); ABG HCO3 27 mEq/L (21-27); ABG Oxygen Saturation 98 % (95-98); ABG PCO2 46 mmHg (35-45); ABG PH 7.38 pH Units (7.32-7.45); ABG PO2 104 mmHg (85-104); ABG TCO2 29 mEq/L (20-26); Blood Gas Modality AF; Blood Gas VT 400 cc
[2019-01-02 05:28] LABS: Hemoglobin 7.4 g/dL (11.5-15.4); Immature Granulocytes % 0.2 % (0-4); Lymphocytes # 0.7 K/mcL (0.6-4.6); Lymphocytes % 13.2 %; Mean Corpuscular HGB Conc 30.8 g/dL (31.6-35.5); Mean Corpuscular Hemoglobin 28.7 pg (28.0-33.3); Mean Platelet Volume 9.6 fL (9.4-12.4); Monocytes # 0.3 K/mcL (0.0-1.3); Monocytes % 5.8 %; Platelet Count 233 K/mcL (140-400); Red Blood Count 2.58 M/mcL (3.82-4.97); Red Cell Distribution Width 16.7 % (11.5-14.5); Segmented Neutrophils % 80.8 %
[2019-01-02] MEDS: *HR* Heparin 5,000 UNIT/ML VIAL SQ SCH ×2 (05:46→17:31)
[2019-01-02 05:47] LABS: Calcium 8.7 mg/dL (8.6-10.3); Potassium 4.4 mEq/L (3.5-5.1)
[2019-01-02] MEDS ORDERED: *HR* Heparin 10,000 UNIT/10 ML VIAL IV PRN (07:41)
[2019-01-02] MEDS ORDERED: 0.9 % Sodium Chloride 250 ML IVC PRN (07:41)
[2019-01-02] MEDS ORDERED: 0.9 % Sodium Chloride 1,000 ML PRIME SCH (07:45)
[2019-01-02] MEDS: levETIRAcetam 1,000 MG in 0.9 % Sodium Chloride 100 ML IVPB SCH (08:40)
[2019-01-02] MEDS: Chlorhexidine Rinse 15 ML MOUTHWASH MM SCH ×2 (08:41→21:17)
[2019-01-02] MEDS: Pantoprazole 40 MG VIAL IVP SCH ×2 (08:41→21:17)
[2019-01-02] MEDS: predniSONE 20 MG TABLET PO SCH (08:41)
[2019-01-02] MEDS: cefTRIAXone 2,000 MG in Water for inj. (sterile) 20 ML IVP SCH (08:42)
[2019-01-02] MEDS: Azithromycin 500 MG in 0.9 % Sodium Chloride 250 ML IVPB SCH (08:42)
[2019-01-02] MEDS: Insulin DETEMIR 100 UNIT/ML X5UNITS SQ SCH (09:12)
[2019-01-02] MEDS: Dexmedetomidine HCl 400 MCG/100 ML MLS IVC SCH ×2 (09:12→20:33)
[2019-01-02] MEDS: Budesonide/Formoterol 160/4.5 1 PUFF INH IH SCH ×2 (09:17→23:08)
[2019-01-02] MEDS ORDERED: 0.9 % Sodium Chloride 250 ML ONE (10:01)
[2019-01-02] MEDS ORDERED: Acetaminophen 325 MG TABLET PO PRN (11:07)
[2019-01-02] MEDS: Sennosides/Docusate Sodium TABLET PO SCH (12:19)
[2019-01-02] MEDS: Acetaminophen 325 MG TABLET PO SCH ×3 (12:19→23:25)
[2019-01-02] MEDS ORDERED: *HR* Midazolam HCl 5 MG/5 ML VIAL IVP ONE (13:38)
[2019-01-02] MEDS: FentaNYL (PF) 1,000 MCG in 0.9 % Sodium Chloride 80 ML IVC SCH (16:42)
[2019-01-03] MEDS: Artificial Tears SOLN 15 ML BOTTLE BOTH EYES SCH ×3 (03:23→11:24)
[2019-01-03] MEDS: Ipratropium/Albuterol Neb 3 ML IH SCH ×4 (03:44→22:12)
[2019-01-03 04:44] LABS: ABG Base Excess 5 mEq/L (-2 to 3); ABG HCO3 31 mEq/L (21-27); ABG Oxygen Saturation 99 % (95-98); ABG PCO2 53 mmHg (35-45); ABG PH 7.38 pH Units (7.32-7.45); ABG PO2 161 mmHg (85-104); ABG TCO2 33 mEq/L (20-26); Blood Gas Modality ASSIST CONTROL; Blood Gas VT 400 cc
[2019-01-03 04:53] LABS: Eosinophils % 0.2 %; Hematocrit 33.9 % (35.3-44.9); Immature Granulocytes % 0.6 % (0-4); Lymphocytes # 0.9 K/mcL (0.6-4.6); Lymphocytes % 19.7 %; Mean Corpuscular HGB Conc 32.2 g/dL (31.6-35.5); Mean Corpuscular Hemoglobin 28.5 pg (28.0-33.3); Mean Corpuscular Volume 88.7 fL (83.0-100.0); Mean Platelet Volume 9.4 fL (9.4-12.4); Monocytes # 0.3 K/mcL (0.0-1.3); Monocytes % 7.3 %; Neutrophils # 3.4 K/mcL (1.6-8.9); Platelet Count 245 K/mcL (140-400); Red Blood Count 3.82 M/mcL (3.82-4.97); Red Cell Distribution Width 17.4 % (11.5-14.5); Segmented Neutrophils % 72.2 %; White Blood Count 4.7 K/mcL (4.3-11.1)
[2019-01-03 04:54] LABS: Hemoglobin 10.9 g/dL (11.5-15.4)
[2019-01-03 05:12] LABS: Calcium 8.8 mg/dL (8.6-10.3); Potassium 4.2 mEq/L (3.5-5.1)
[2019-01-03] MEDS: *HR* Heparin 5,000 UNIT/ML VIAL SQ SCH ×2 (06:05→16:40)
[2019-01-03] MEDS: Insulin LISPRO 300 UNITS/3 ML VIAL SQ SCH ×4 (06:06→21:24)
[2019-01-03] MEDS: Acetaminophen 325 MG TABLET PO SCH ×4 (06:06→23:30)
[2019-01-03] MEDS: Sennosides/Docusate Sodium TABLET PO SCH (06:56)
[2019-01-03] MEDS: predniSONE 20 MG TABLET PO SCH (06:56)
[2019-01-03] MEDS: Chlorhexidine Rinse 15 ML MOUTHWASH MM SCH (07:19)
[2019-01-03] MEDS: Pantoprazole 40 MG VIAL IVP SCH (07:19)
[2019-01-03] MEDS: levETIRAcetam 1,000 MG in 0.9 % Sodium Chloride 100 ML IVPB SCH (07:21)
[2019-01-03] MEDS: Budesonide/Formoterol 160/4.5 1 PUFF INH IH SCH ×2 (10:36→22:12)
[2019-01-03] MEDS: cefTRIAXone 2,000 MG in Water for inj. (sterile) 20 ML IVP SCH (10:41)
[2019-01-03] MEDS: Azithromycin 500 MG in 0.9 % Sodium Chloride 250 ML IVPB SCH (10:41)
[2019-01-03] MEDS: Menthol 9.1 MG LOZENGE PO PRN ×2 (21:29→23:36)
[2019-01-04] MEDS: Ipratropium/Albuterol Neb 3 ML IH SCH ×4 (04:15→22:22)
[2019-01-04 04:43] LABS: Basophils % 0.5 %; Eosinophils % 0.9 %; Hematocrit 33.1 % (35.3-44.9); Hemoglobin 10.3 g/dL (11.5-15.4); Immature Granulocytes % 1.4 % (0-4); Lymphocytes # 0.8 K/mcL (0.6-4.6); Lymphocytes % 17.6 %; Mean Corpuscular HGB Conc 31.1 g/dL (31.6-35.5); Mean Corpuscular Hemoglobin 28.9 pg (28.0-33.3); Mean Platelet Volume 9.2 fL (9.4-12.4); Monocytes # 0.3 K/mcL (0.0-1.3); Neutrophils # 3.1 K/mcL (1.6-8.9); Platelet Count 203 K/mcL (140-400); Red Blood Count 3.56 M/mcL (3.82-4.97); Red Cell Distribution Width 17.1 % (11.5-14.5); Segmented Neutrophils % 71.6 %; White Blood Count 4.3 K/mcL (4.3-11.1)
[2019-01-04 05:05] LABS: Calcium 8.4 mg/dL (8.6-10.3); Potassium 3.8 mEq/L (3.5-5.1)
[2019-01-04] MEDS: *HR* Heparin 5,000 UNIT/ML VIAL SQ SCH ×2 (05:54→16:21)
[2019-01-04] MEDS: Acetaminophen 325 MG TABLET PO SCH ×4 (05:54→23:52)
[2019-01-04] MEDS ORDERED: 0.9 % Sodium Chloride 250 ML IVC PRN ×6 (07:36→10:16)
[2019-01-04] MEDS ORDERED: *HR* Heparin 10,000 UNIT/10 ML VIAL IV PRN ×3 (07:39→10:16)
[2019-01-04] MEDS: predniSONE 20 MG TABLET PO SCH (07:44)
[2019-01-04] MEDS ORDERED: 0.9 % Sodium Chloride 1,000 ML PRIME SCH ×4 (07:45→10:16)
[2019-01-04] MEDS: Sennosides/Docusate Sodium TABLET PO SCH (07:47)
[2019-01-04] MEDS: Azithromycin 500 MG in 0.9 % Sodium Chloride 250 ML IVPB SCH (08:00)
[2019-01-04] MEDS: Insulin LISPRO 300 UNITS/3 ML VIAL SQ SCH ×3 (08:00→16:24)
[2019-01-04] MEDS: levETIRAcetam 1,000 MG in 0.9 % Sodium Chloride 100 ML IVPB SCH (08:11)
[2019-01-04] MEDS ORDERED: Pantoprazole 40 MG VIAL IVP SCH (09:00)
[2019-01-04] MEDS ORDERED: Albuterol 2.5 MG/3 ML NEBULIZER IH PRN (10:16)
[2019-01-04] MEDS ORDERED: *HR* Dextrose 50 % in Water (Syg) 50 ML SYRINGE IVP PRN (10:16)
[2019-01-04] MEDS ORDERED: D5% in Water 1,000 ML IVC PRN (10:16)
[2019-01-04] MEDS ORDERED: Ondansetron 4 MG/2 ML VIAL IVP PRN (10:16)
[2019-01-04] MEDS ORDERED: Menthol 9.1 MG LOZENGE PO PRN (10:16)
[2019-01-04] MEDS ORDERED: Naloxone 0.4 MG/ML INJ IVP PRN (10:16)
[2019-01-04] MEDS ORDERED: Dextrose Gel 15 GM/37.5 ML TUBE PO PRN ×2 (10:16)
[2019-01-04] MEDS ORDERED: cefTRIAXone 2,000 MG in 0.9 % Sodium Chloride Mini Bag 100 ML IVPB SCH (11:10)
[2019-01-04] MEDS ORDERED: Insulin LISPRO 300 UNITS/3 ML VIAL SQ SCH ×2 (11:30→21:00)
[2019-01-04] MEDS: Budesonide/Formoterol 160/4.5 1 PUFF INH IH SCH ×2 (11:33→22:22)
[2019-01-05] MEDS: Ipratropium/Albuterol Neb 3 ML IH SCH ×4 (03:55→23:11)
[2019-01-05] MEDS: Acetaminophen 325 MG TABLET PO SCH ×3 (05:23→17:32)
[2019-01-05] MEDS: *HR* Heparin 5,000 UNIT/ML VIAL SQ SCH ×2 (05:24→17:32)
[2019-01-05] MEDS: predniSONE 20 MG TABLET PO SCH (08:14)
[2019-01-05] MEDS: Sennosides/Docusate Sodium TABLET PO SCH (08:14)
[2019-01-05 08:38] LABS: Basophils % 0.1 %; Eosinophils # 0.1 K/mcL (0.0-0.6); Eosinophils % 0.8 %; Hematocrit 36.3 % (35.3-44.9); Hemoglobin 11.8 g/dL (11.5-15.4); Immature Granulocytes % 0.5 % (0-4); Lymphocytes % 13.3 %; Mean Corpuscular HGB Conc 32.5 g/dL (31.6-35.5); Mean Corpuscular Hemoglobin 28.8 pg (28.0-33.3); Mean Corpuscular Volume 88.5 fL (83.0-100.0); Mean Platelet Volume 9.4 fL (9.4-12.4); Monocytes # 0.6 K/mcL (0.0-1.3); Monocytes % 7.7 %; Neutrophils # 5.7 K/mcL (1.6-8.9); Platelet Count 254 K/mcL (140-400); Red Cell Distribution Width 16.2 % (11.5-14.5); Segmented Neutrophils % 77.6 %; White Blood Count 7.3 K/mcL (4.3-11.1)
[2019-01-05] MEDS: Insulin LISPRO 300 UNITS/3 ML VIAL SQ SCH ×3 (08:38→17:33)
[2019-01-05 08:55] LABS: Calcium 8.9 mg/dL (8.6-10.3); Magnesium 1.8 mg/dL (1.6-2.6); Phosphorous 3.2 mg/dL (2.7-4.5); Potassium 4.4 mEq/L (3.5-5.1)
[2019-01-05] MEDS ORDERED: levETIRAcetam 1,000 MG in 0.9 % Sodium Chloride 100 ML IVPB SCH (09:00)
[2019-01-05] MEDS ORDERED: cefTRIAXone 2,000 MG in 0.9 % Sodium Chloride Mini Bag 100 ML IVPB SCH ×2 (09:00→10:00)
[2019-01-05] MEDS: Budesonide/Formoterol 160/4.5 1 PUFF INH IH SCH ×2 (11:10→23:11)
[2019-01-05] MEDS ORDERED: Insulin DETEMIR 100 UNIT/ML X5UNITS SQ SCH (21:00)
[2019-01-06] MEDS: Acetaminophen 325 MG TABLET PO SCH ×4 (00:11→19:20)
[2019-01-06 02:07] LABS: Basophils % 0.1 %; Eosinophils % 0.1 %; Hematocrit 36.3 % (35.3-44.9); Hemoglobin 11.6 g/dL (11.5-15.4); Immature Granulocytes % 0.8 % (0-4); Lymphocytes # 0.9 K/mcL (0.6-4.6); Lymphocytes % 10.2 %; Mean Corpuscular Hemoglobin 28.2 pg (28.0-33.3); Mean Corpuscular Volume 88.3 fL (83.0-100.0); Mean Platelet Volume 9.6 fL (9.4-12.4); Monocytes # 0.5 K/mcL (0.0-1.3); Monocytes % 6.1 %; Neutrophils # 7.1 K/mcL (1.6-8.9); Platelet Count 276 K/mcL (140-400); Red Blood Count 4.11 M/mcL (3.82-4.97); Red Cell Distribution Width 16.2 % (11.5-14.5); Segmented Neutrophils % 82.7 %; White Blood Count 8.5 K/mcL (4.3-11.1)
[2019-01-06 02:29] LABS: Magnesium 1.8 mg/dL (1.6-2.6); Phosphorous 3.5 mg/dL (2.7-4.5); Potassium 4.6 mEq/L (3.5-5.1)
[2019-01-06] MEDS: Ipratropium/Albuterol Neb 3 ML IH SCH ×4 (04:20→22:42)
[2019-01-06] MEDS: *HR* Heparin 5,000 UNIT/ML VIAL SQ SCH ×2 (06:55→19:19)
[2019-01-06] MEDS: Insulin LISPRO 300 UNITS/3 ML VIAL SQ SCH ×3 (08:13→19:20)
[2019-01-06] MEDS ORDERED: 0.9 % Sodium Chloride 250 ML IVC PRN (08:38)
[2019-01-06] MEDS ORDERED: amLODIPine 5 MG TABLET PO SCH (09:00)
[2019-01-06] MEDS: predniSONE 20 MG TABLET PO SCH (09:07)
[2019-01-06] MEDS: Sennosides/Docusate Sodium TABLET PO SCH (09:08)
[2019-01-06] MEDS: levETIRAcetam 250 MG TABLET PO SCH (09:08)
[2019-01-06] MEDS: Budesonide/Formoterol 160/4.5 1 PUFF INH IH SCH ×2 (10:11→22:42)
[2019-01-06 12:45] LABS: Estimated Average Glucose 126 mg/dl
[2019-01-06] MEDS ORDERED: Ondansetron ODT 4 MG TAB.RAPDIS SL PRN (18:35)
[2019-01-06] MEDS: Insulin DETEMIR 100 UNIT/ML X5UNITS SQ SCH (20:43)
[2019-01-07] MEDS: Acetaminophen 325 MG TABLET PO SCH ×5 (00:37→23:30)
[2019-01-07] MEDS: Ipratropium/Albuterol Neb 3 ML IH SCH ×4 (03:35→22:30)
[2019-01-07] MEDS: *HR* Heparin 5,000 UNIT/ML VIAL SQ SCH ×2 (05:40→17:12)
[2019-01-07 07:33] LABS: Hematocrit 31.9 % (35.3-44.9); Immature Granulocytes % 1.5 % (0-4); Lymphocytes # 0.4 K/mcL (0.6-4.6); Lymphocytes % 8.7 %; Mean Corpuscular HGB Conc 30.7 g/dL (31.6-35.5); Mean Corpuscular Hemoglobin 28.7 pg (28.0-33.3); Mean Corpuscular Volume 93.3 fL (83.0-100.0); Mean Platelet Volume 9.7 fL (9.4-12.4); Monocytes # 0.3 K/mcL (0.0-1.3); Monocytes % 6.2 %; Neutrophils # 3.9 K/mcL (1.6-8.9); Platelet Count 241 K/mcL (140-400); Red Blood Count 3.42 M/mcL (3.82-4.97); Red Cell Distribution Width 16.4 % (11.5-14.5); Segmented Neutrophils % 83.6 %; White Blood Count 4.7 K/mcL (4.3-11.1)
[2019-01-07 07:34] LABS: Hemoglobin 9.8 g/dL (11.5-15.4)
[2019-01-07 07:53] LABS: Calcium 8.9 mg/dL (8.6-10.3); Magnesium 1.7 mg/dL (1.6-2.6); Phosphorous 3.1 mg/dL (2.7-4.5)
[2019-01-07] MEDS: Insulin LISPRO 300 UNITS/3 ML VIAL SQ SCH ×3 (08:13→17:12)
[2019-01-07] MEDS: predniSONE 20 MG TABLET PO SCH (08:13)
[2019-01-07] MEDS: Sennosides/Docusate Sodium TABLET PO SCH (08:13)
[2019-01-07] MEDS: levETIRAcetam 250 MG TABLET PO SCH (08:13)
[2019-01-07] MEDS: amLODIPine 5 MG TABLET PO SCH (08:21)
[2019-01-07] MEDS: Budesonide/Formoterol 160/4.5 1 PUFF INH IH SCH ×2 (10:28→22:30)
[2019-01-07] MEDS: Insulin DETEMIR 100 UNIT/ML X5UNITS SQ SCH (20:26)
[2019-01-07] MEDS ORDERED: Insulin LISPRO 300 UNITS/3 ML VIAL SQ SCH (21:37)
[2019-01-08] MEDS ORDERED: Insulin Human Regular 10 UNIT in 0.9 % Sodium Chloride 10 ML IV ONE (00:44)
[2019-01-08] MEDS: Ipratropium/Albuterol Neb 3 ML IH SCH ×3 (04:07→16:02)
[2019-01-08] MEDS ORDERED: Insulin Human Regular 5 UNIT in 0.9 % Sodium Chloride 10 ML IV ONE (04:30)
[2019-01-08 04:52] LABS: Hematocrit 30.2 % (35.3-44.9); Hemoglobin 9.3 g/dL (11.5-15.4); Immature Granulocytes % 0.9 % (0-4); Lymphocytes # 0.6 K/mcL (0.6-4.6); Lymphocytes % 8.4 %; Mean Corpuscular HGB Conc 30.8 g/dL (31.6-35.5); Mean Corpuscular Hemoglobin 28.4 pg (28.0-33.3); Mean Corpuscular Volume 92.1 fL (83.0-100.0); Mean Platelet Volume 9.6 fL (9.4-12.4); Monocytes # 0.6 K/mcL (0.0-1.3); Monocytes % 8.4 %; Neutrophils # 6.1 K/mcL (1.6-8.9); Platelet Count 255 K/mcL (140-400); Red Blood Count 3.28 M/mcL (3.82-4.97); Red Cell Distribution Width 16.4 % (11.5-14.5); Segmented Neutrophils % 82.3 %
[2019-01-08 05:03] LABS: White Blood Count 7.4 K/mcL (4.3-11.1)
[2019-01-08 05:09] LABS: Calcium 9.2 mg/dL (8.6-10.3); Magnesium 1.7 mg/dL (1.6-2.6); Phosphorous 3.1 mg/dL (2.7-4.5); Potassium 5.4 mEq/L (3.5-5.1)
[2019-01-08] MEDS: Acetaminophen 325 MG TABLET PO SCH ×2 (05:44→11:43)
[2019-01-08] MEDS: *HR* Heparin 5,000 UNIT/ML VIAL SQ SCH (05:44)
[2019-01-08] MEDS: Insulin LISPRO 300 UNITS/3 ML VIAL SQ SCH ×3 (08:59→17:15)
[2019-01-08] MEDS: Sennosides/Docusate Sodium TABLET PO SCH (09:00)
[2019-01-08] MEDS: amLODIPine 5 MG TABLET PO SCH (09:00)
[2019-01-08] MEDS: predniSONE 20 MG TABLET PO SCH (09:00)
[2019-01-08] MEDS: levETIRAcetam 250 MG TABLET PO SCH (09:00)
[2019-01-08] MEDS: Budesonide/Formoterol 160/4.5 1 PUFF INH IH SCH (10:44)
[2019-01-08 16:02] VITALS: BP 168/71
[2019-01-09] MEDS ORDERED: predniSONE 20 MG TABLET PO SCH (09:00)
== END 2019-01-08 17:51 | disposition hospice, inpatient (51) | DRG 207 ==
LOC: EMEROOARM 17:04 → ICNU 19:45 → SUATTDRO 19:45 → ICNU 21:34 → 2ANU 01-04 12:27
PROVIDERS: ADMIT Internal Medicine; ATTEND Pharmacist

== ENCOUNTER 2019-02-16 22:16 | Inpatient (IN) ==
[2019-02-16] MEDS ORDERED: Ipratropium/Albuterol Neb 3 ML IH ONE (22:25)
[2019-02-16] MEDS ORDERED: methylPREDNISolone 125 MG/2 ML VIAL IVP ONE (22:25)
[2019-02-16 23:29] LABS: INR 1.4; Prothrombin Time 15.6 Seconds (9.4-12.1)
[2019-02-16 23:53] LABS: Basophils % 0.2 %; Eosinophils # 0.1 K/mcL (0.0-0.6); Hematocrit 28.5 % (35.3-44.9); Hemoglobin 9.2 g/dL (11.5-15.4); Immature Granulocytes % 0.7 % (0-4); Lymphocytes # 0.7 K/mcL (0.6-4.6); Mean Corpuscular HGB Conc 32.3 g/dL (31.6-35.5); Mean Corpuscular Hemoglobin 32.4 pg (28.0-33.3); Mean Platelet Volume 8.8 fL (9.4-12.4); Monocytes # 0.6 K/mcL (0.0-1.3); Monocytes % 9.9 %; Neutrophils # 4.4 K/mcL (1.6-8.9); Platelet Count 253 K/mcL (140-400); Red Blood Count 2.84 M/mcL (3.82-4.97); Red Cell Distribution Width 16.2 % (11.5-14.5); Segmented Neutrophils % 76.2 %; White Blood Count 5.7 K/mcL (4.3-11.1)
[2019-02-16 23:55] LABS: Mean Corpuscular Volume 100.4 fL (83.0-100.0)
[2019-02-16 23:55] LABS: Albumin 3.5 g/dL (3.5-5.7); Bilirubin,Direct 0.3 mg/dL (0.0-0.2); Bilirubin,Indirect 0.6 mg/dL (0.0-1.0); Bilirubin,Total 0.9 mg/dL (0.3-1.0); Calcium 8.6 mg/dL (8.6-10.3); Globulin 3.6 g/dL (2.4-3.5); Potassium 4.2 mEq/L (3.5-5.1); Total Protein 7.1 g/dL (6.4-8.9); Troponin I 0.05 ng/mL (< 0.04)
[2019-02-17] MEDS ORDERED: 0.9 % Sodium Chloride 250 ML IVC PRN (07:50)
[2019-02-17] MEDS ORDERED: 0.9 % Sodium Chloride 1,000 ML PRIME SCH (08:00)
[2019-02-17] MEDS ORDERED: Ondansetron ODT 4 MG TAB.RAPDIS SL PRN (08:35)
[2019-02-17] MEDS ORDERED: Naloxone 0.4 MG/ML INJ IVP PRN (08:35)
[2019-02-17] MEDS ORDERED: D5% in Water 1,000 ML IVC PRN (09:13)
[2019-02-17] MEDS ORDERED: Dextrose Gel 15 GM/37.5 ML TUBE PO PRN ×2 (09:13)
[2019-02-17] MEDS ORDERED: *HR* Dextrose 50 % in Water (Syg) 50 ML SYRINGE IVP PRN (09:13)
[2019-02-17] MEDS ORDERED: Ipratropium/Albuterol Neb 3 ML IH PRN (12:55)
[2019-02-17] MEDS: levETIRAcetam 250 MG TABLET PO SCH ×2 (13:23→20:05)
[2019-02-17] MEDS: lamoTRIgine 100 MG TABLET PO SCH ×2 (13:23→20:05)
[2019-02-17] MEDS: Aspirin Enteric Coated 81 MG Tablet PO SCH (13:23)
[2019-02-17] MEDS: Insulin LISPRO 300 UNITS/3 ML VIAL SQ SCH ×3 (13:24→20:07)
[2019-02-17] MEDS ORDERED: carvediloL 6.25 MG TABLET PO SCH (17:00)
[2019-02-17] MEDS: *HR* Heparin 5,000 UNIT/ML VIAL SQ SCH (17:29)
[2019-02-17] MEDS: *HR* OxyCODONE Oral Soln 5 MG/5 ML UD.LIQ PO PRN (17:29)
[2019-02-17] MEDS: amLODIPine 5 MG TABLET PO SCH (17:29)
[2019-02-17] MEDS ORDERED: *HR* LORazepam 0.5 MG TABLET PO ONE (18:26)
[2019-02-17] MEDS: Insulin DETEMIR 100 UNIT/ML X5UNITS SQ SCH (20:14)
[2019-02-18] MEDS: *HR* OxyCODONE Oral Soln 5 MG/5 ML UD.LIQ PO PRN (01:48)
[2019-02-18] MEDS: *HR* Heparin 5,000 UNIT/ML VIAL SQ SCH ×2 (05:53→17:18)
[2019-02-18] MEDS: carvediloL 6.25 MG TABLET PO SCH ×2 (07:50→17:18)
[2019-02-18] MEDS: levETIRAcetam 250 MG TABLET PO SCH ×2 (07:50→20:36)
[2019-02-18] MEDS: Aspirin Enteric Coated 81 MG Tablet PO SCH (07:51)
[2019-02-18] MEDS: amLODIPine 5 MG TABLET PO SCH (07:51)
[2019-02-18] MEDS: Insulin LISPRO 300 UNITS/3 ML VIAL SQ SCH ×4 (07:51→20:37)
[2019-02-18] MEDS: lamoTRIgine 100 MG TABLET PO SCH ×2 (07:51→20:36)
[2019-02-18] MEDS ORDERED: *HR* LORazepam 1 MG TABLET PO STA (09:06)
[2019-02-18 10:30] LABS: Hematocrit 27.6 % (35.3-44.9); Mean Corpuscular HGB Conc 32.6 g/dL (31.6-35.5); Mean Corpuscular Hemoglobin 32.3 pg (28.0-33.3); Mean Corpuscular Volume 98.9 fL (83.0-100.0); Mean Platelet Volume 9.7 fL (9.4-12.4); Platelet Count 223 K/mcL (140-400); Red Blood Count 2.79 M/mcL (3.82-4.97); Red Cell Distribution Width 16.8 % (11.5-14.5); White Blood Count 6.2 K/mcL (4.3-11.1)
[2019-02-18 10:41] LABS: Calcium 8.7 mg/dL (8.6-10.3); Potassium 5.8 mEq/L (3.5-5.1)
[2019-02-18] MEDS: Ipratropium/Albuterol Neb 3 ML IH SCH ×4 (11:06→23:19)
[2019-02-18] MEDS: MethylPREDNISolone 40 MG/ML VIAL IVP SCH ×2 (11:48→17:18)
[2019-02-18] MEDS ORDERED: Acetaminophen 325 MG TABLET PO PRN (13:01)
[2019-02-18 13:43] LABS: Adenovirus Not Detected (Not Detect); Bordetella Pertussis Not Detected (Not Detect); Chlamydophila pneumoniae Not Detected (Not Detect); Coronavirus 229E Not Detected (Not Detect); Coronavirus HKU1 Not Detected (Not Detect); Coronavirus NL63 Not Detected (Not Detect); Coronavirus OC43 Not Detected (Not Detect); Human Metapneumovirus Not Detected (Not Detect); Human Rhinovirus/Enterovirus Not Detected (Not Detect); Influenza B Not Detected (Not Detect); Mycoplasma pneumoniae Not Detected (Not Detect); Parainfluenza Virus 1 Not Detected (Not Detect); Parainfluenza Virus 2 Not Detected (Not Detect); Parainfluenza Virus 3 Not Detected (Not Detect); Parainfluenza Virus 4 Not Detected (Not Detect); Respiratory Syncytial Virus Not Detected (Not Detect)
[2019-02-18 13:46] LABS: Influenza A Subtype 2009 H1 DETECTED (Not Detect)
[2019-02-18] MEDS ORDERED: Bisacodyl 10 MG RECTAL SUPPOSITORY RC PRN (14:01)
[2019-02-18] MEDS ORDERED: *HR* LORazepam 0.5 MG TABLET PO PRN (14:01)
[2019-02-18] MEDS: Insulin DETEMIR 100 UNIT/ML X5UNITS SQ SCH (20:38)
[2019-02-18] MEDS ORDERED: FLUTICASONE PROPION IH SCH (21:00)
[2019-02-18] MEDS ORDERED: SALMETEROL IH SCH (21:00)
[2019-02-18] MEDS: Budesonide Neb 0.5 MG/2 ML IH SCH (23:19)
[2019-02-19 01:41] LABS: ABG Base Excess 2 mEq/L (-2 to 3); ABG HCO3 29 mEq/L (21-27); ABG Oxygen Saturation 96 % (95-98); ABG PCO2 64 mmHg (35-45); ABG PH 7.26 pH Units (7.32-7.45); ABG PO2 100 mmHg (85-104); ABG TCO2 31 mEq/L (20-26)
[2019-02-19 02:15] LABS: Hematocrit 25.6 % (35.3-44.9); Hemoglobin 8.1 g/dL (11.5-15.4); Immature Granulocytes % 0.4 % (0-4); Lymphocytes # 0.3 K/mcL (0.6-4.6); Lymphocytes % 11.8 %; Mean Corpuscular HGB Conc 31.6 g/dL (31.6-35.5); Mean Corpuscular Hemoglobin 31.8 pg (28.0-33.3); Mean Corpuscular Volume 100.4 fL (83.0-100.0); Mean Platelet Volume 8.9 fL (9.4-12.4); Monocytes # 0.3 K/mcL (0.0-1.3); Monocytes % 11.1 %; Neutrophils # 2.2 K/mcL (1.6-8.9); Platelet Count 189 K/mcL (140-400); Red Blood Count 2.55 M/mcL (3.82-4.97); Red Cell Distribution Width 16.4 % (11.5-14.5); Segmented Neutrophils % 76.7 %; White Blood Count 2.8 K/mcL (4.3-11.1)
[2019-02-19 02:34] LABS: Calcium 8.2 mg/dL (8.6-10.3); Potassium 5.5 mEq/L (3.5-5.1)
[2019-02-19] MEDS: Ipratropium/Albuterol Neb 3 ML IH SCH ×6 (04:06→23:35)
[2019-02-19] MEDS: *HR* Heparin 5,000 UNIT/ML VIAL SQ SCH ×2 (06:18→17:29)
[2019-02-19] MEDS: MethylPREDNISolone 40 MG/ML VIAL IVP SCH ×2 (06:19→17:29)
[2019-02-19] MEDS: Budesonide Neb 0.5 MG/2 ML IH SCH ×2 (07:38→20:29)
[2019-02-19] MEDS: lamoTRIgine 100 MG TABLET PO SCH ×2 (08:21→22:52)
[2019-02-19] MEDS: Aspirin Enteric Coated 81 MG Tablet PO SCH (08:21)
[2019-02-19] MEDS: levETIRAcetam 250 MG TABLET PO SCH ×2 (08:21→22:52)
[2019-02-19] MEDS: Insulin LISPRO 300 UNITS/3 ML VIAL SQ SCH ×4 (08:22→22:51)
[2019-02-19] MEDS: amLODIPine 5 MG TABLET PO SCH (08:22)
[2019-02-19] MEDS: carvediloL 6.25 MG TABLET PO SCH ×2 (08:22→16:33)
[2019-02-19] MEDS ORDERED: *HR* OxyCODONE Oral Soln 5 MG/5 ML UD.LIQ PO PRN (09:02)
[2019-02-19] MEDS ORDERED: 0.9 % Sodium Chloride 250 ML IVC PRN (10:22)
[2019-02-19] MEDS: SODIUM ZIRCONIUM CYCLOSILICATE 5 GM POWD.PACK PO SCH (12:59)
[2019-02-19] MEDS: Gabapentin 100 MG CAPSULE PO SCH ×2 (16:21→22:52)
[2019-02-19] MEDS ORDERED: Insulin DETEMIR 100 UNIT/ML X5UNITS SQ SCH (21:00)
[2019-02-20] MEDS: Ipratropium/Albuterol Neb 3 ML IH SCH ×6 (03:38→23:53)
[2019-02-20 05:44] LABS: Hematocrit 25.1 % (35.3-44.9); Hemoglobin 7.9 g/dL (11.5-15.4); Immature Granulocytes % 0.5 % (0-4); Lymphocytes # 0.5 K/mcL (0.6-4.6); Lymphocytes % 12.7 %; Mean Corpuscular HGB Conc 31.5 g/dL (31.6-35.5); Mean Corpuscular Volume 101.6 fL (83.0-100.0); Mean Platelet Volume 9.2 fL (9.4-12.4); Monocytes # 0.4 K/mcL (0.0-1.3); Monocytes % 8.8 %; Neutrophils # 3.2 K/mcL (1.6-8.9); Platelet Count 180 K/mcL (140-400); Red Blood Count 2.47 M/mcL (3.82-4.97); Red Cell Distribution Width 15.6 % (11.5-14.5); White Blood Count 4.1 K/mcL (4.3-11.1)
[2019-02-20] MEDS: MethylPREDNISolone 40 MG/ML VIAL IVP SCH ×2 (06:14→17:08)
[2019-02-20] MEDS: *HR* Heparin 5,000 UNIT/ML VIAL SQ SCH ×2 (06:14→17:09)
[2019-02-20 06:17] LABS: Calcium 8.1 mg/dL (8.6-10.3); Potassium 3.8 mEq/L (3.5-5.1)
[2019-02-20] MEDS: Budesonide Neb 0.5 MG/2 ML IH SCH ×2 (07:49→20:24)
[2019-02-20] MEDS ORDERED: 0.9 % Sodium Chloride 250 ML IVC PRN (09:19)
[2019-02-20] MEDS: Aspirin Enteric Coated 81 MG Tablet PO SCH (09:57)
[2019-02-20] MEDS: SODIUM ZIRCONIUM CYCLOSILICATE 5 GM POWD.PACK PO SCH (09:57)
[2019-02-20] MEDS: levETIRAcetam 250 MG TABLET PO SCH ×2 (09:57→21:09)
[2019-02-20] MEDS: lamoTRIgine 100 MG TABLET PO SCH ×2 (09:57→21:09)
[2019-02-20] MEDS: Gabapentin 100 MG CAPSULE PO SCH ×3 (09:57→21:09)
[2019-02-20] MEDS: Insulin LISPRO 300 UNITS/3 ML VIAL SQ SCH ×4 (10:18→21:10)
[2019-02-20] MEDS: carvediloL 6.25 MG TABLET PO SCH ×2 (10:19→17:08)
[2019-02-20] MEDS: amLODIPine 5 MG TABLET PO SCH (10:19)
[2019-02-20] MEDS: *HR* OxyCODONE Oral Soln 5 MG/5 ML UD.LIQ PO PRN ×2 (10:25→21:21)
[2019-02-20] MEDS ORDERED: Insulin DETEMIR 100 UNIT/ML X5UNITS SQ SCH (21:00)
[2019-02-21] MEDS: Ipratropium/Albuterol Neb 3 ML IH SCH ×5 (03:46→20:02)
[2019-02-21] MEDS: MethylPREDNISolone 40 MG/ML VIAL IVP SCH (05:10)
[2019-02-21] MEDS: *HR* Heparin 5,000 UNIT/ML VIAL SQ SCH (05:11)
[2019-02-21] MEDS ORDERED: 0.9 % Sodium Chloride 250 ML IVC PRN (07:20)
[2019-02-21 08:04] LABS: Hematocrit 26.3 % (35.3-44.9); Hemoglobin 8.2 g/dL (11.5-15.4); Immature Granulocytes % 0.5 % (0-4); Lymphocytes # 0.4 K/mcL (0.6-4.6); Lymphocytes % 8.2 %; Mean Corpuscular HGB Conc 31.2 g/dL (31.6-35.5); Mean Corpuscular Hemoglobin 31.9 pg (28.0-33.3); Mean Corpuscular Volume 102.3 fL (83.0-100.0); Mean Platelet Volume 9.5 fL (9.4-12.4); Monocytes # 0.3 K/mcL (0.0-1.3); Monocytes % 5.9 %; Neutrophils # 3.7 K/mcL (1.6-8.9); Platelet Count 185 K/mcL (140-400); Red Blood Count 2.57 M/mcL (3.82-4.97); Red Cell Distribution Width 15.4 % (11.5-14.5); Segmented Neutrophils % 85.4 %; White Blood Count 4.4 K/mcL (4.3-11.1)
[2019-02-21] MEDS: Budesonide Neb 0.5 MG/2 ML IH SCH ×2 (08:07→20:02)
[2019-02-21 08:20] LABS: Calcium 7.8 mg/dL (8.6-10.3); Potassium 4.3 mEq/L (3.5-5.1)
[2019-02-21] MEDS: carvediloL 6.25 MG TABLET PO SCH ×2 (10:36→16:47)
[2019-02-21] MEDS: Insulin LISPRO 300 UNITS/3 ML VIAL SQ SCH ×3 (10:36→16:47)
[2019-02-21] MEDS: amLODIPine 5 MG TABLET PO SCH ×2 (10:37→13:24)
[2019-02-21] MEDS: *HR* OxyCODONE Oral Soln 5 MG/5 ML UD.LIQ PO PRN (10:47)
[2019-02-21 13:20] VITALS: BP 180/70
[2019-02-21] MEDS: SODIUM ZIRCONIUM CYCLOSILICATE 5 GM POWD.PACK PO SCH (13:23)
[2019-02-21] MEDS: Aspirin Enteric Coated 81 MG Tablet PO SCH (13:23)
[2019-02-21] MEDS: Gabapentin 100 MG CAPSULE PO SCH ×2 (13:23→16:35)
[2019-02-21] MEDS: levETIRAcetam 250 MG TABLET PO SCH (13:24)
[2019-02-21] MEDS: lamoTRIgine 100 MG TABLET PO SCH (13:24)
[2019-02-21] MEDS ORDERED: Silvasorb 44.4 ML TUBE TP SCH (16:30)
== END 2019-02-21 19:40 | disposition hospice, home (50) | DRG 291 ==
LOC: 2ANU 22:16 → EMEROOARM 22:16 → SUATTDRO 02-17 01:55 → 2ANU 02-17 02:46 → UNDODISIN 02-20 19:44
PROVIDERS: ADMIT Family Medicine; ATTEND Internal Medicine

== ENCOUNTER 2019-10-26 11:04 | Inpatient (IN) ==
[2019-10-26] MEDS ORDERED: *HR* HYDROmorphone PF 0.5 MG/0.5 ML SYRINGE IVP PRN (12:12)
[2019-10-26] MEDS ORDERED: Ondansetron 4 MG/2 ML VIAL IVP ONE (12:12)
[2019-10-26] MEDS ORDERED: *HR* OxyCODONE Immed Rel 5 MG TABLET PO PRN (12:12)
[2019-10-26] MEDS ORDERED: Dexamethasone 4 MG/ML VIAL ONE (12:28)
[2019-10-26] MEDS ORDERED: Lidocaine -MPF 2% 2 ML VIAL ONE ×2 (12:28→14:02)
[2019-10-26] MEDS ORDERED: *HR* Propofol 200 MG/20 ML VIAL IVP ONE ×3 (12:28→14:02)
[2019-10-26] MEDS ORDERED: *HR* Succinylcholine 200 MG/10 ML VIAL IVP ONE (12:28)
[2019-10-26] MEDS ORDERED: Lidocaine HCL 4 ML Topical Solution (Laryng-O-Jet Kit Sterile Pak) TP ONE (12:28)
[2019-10-26] MEDS ORDERED: Ondansetron 4 MG/2 ML VIAL ONE ×2 (12:28→16:49)
[2019-10-26] MEDS ORDERED: *HR* Midazolam HCl 2 MG/2 ML VIAL ONE ×2 (12:30→14:02)
[2019-10-26] MEDS ORDERED: *HR* FentaNYL (PF) 100 MCG/2 ML VIAL ONE ×2 (12:30→14:02)
[2019-10-26] MEDS ORDERED: ROPIVACAINE/PF/NS 0.25% 1 EACH SYRINGE INTRAART ONE (12:30)
[2019-10-26] MEDS ORDERED: Ropivacaine/PF 0.5% 30 ML VIAL ONE (12:30)
[2019-10-26] MEDS ORDERED: *HR* Cisatracurium 10 MG/5 ML VIAL IV ONE (12:56)
[2019-10-26] MEDS ORDERED: Vancomycin 1,000 MG VIAL ONE ×2 (13:00→15:38)
[2019-10-26] MEDS ORDERED: Ethanol\\Acetic Acid\\Na Ace\\Ben 1,000 ML IRRIG.SOLN IR ONE ×2 (13:00→15:38)
[2019-10-26] MEDS ORDERED: *HR* Norepinephrine 4 MG/4 ML VIAL IVC ONE (13:12)
[2019-10-26] MEDS ORDERED: *HR* Vasopressin 20 UNIT/ML VIAL ONE (13:12)
[2019-10-26] MEDS ORDERED: *HR* Labetalol 20 MG/4 ML SYRINGE IVP ONE (16:02)
[2019-10-26 17:30] LABS: Hematocrit 35.3 % (35.3-44.9); Hemoglobin 11.4 g/dL (11.5-15.4)
[2019-10-26] MEDS ORDERED: Naloxone 0.4 MG/ML INJ IVP PRN (20:02)
[2019-10-26] MEDS ORDERED: Sennosides 8.6 MG TABLET PO PRN (20:02)
[2019-10-26] MEDS ORDERED: *HR* OxyCODONE/APAP 5/325 TABLET PO PRN (20:02)
[2019-10-26] MEDS ORDERED: Diphenoxylate/Atropine 1 TAB TABLET PO PRN (20:02)
[2019-10-26] MEDS ORDERED: Ondansetron 4 MG/2 ML VIAL IVP PRN (20:02)
[2019-10-26] MEDS ORDERED: Acetaminophen 325 MG TABLET PO PRN (20:02)
[2019-10-26] MEDS ORDERED: *HR* Dextrose 50 % in Water (Vial) 50 ML VIAL IVP PRN (20:02)
[2019-10-26] MEDS ORDERED: D5% in Water 1,000 ML IVC PRN (20:02)
[2019-10-26] MEDS ORDERED: MOM Conc 10 ML UD.LIQ PO PRN (20:02)
[2019-10-26] MEDS ORDERED: Dextrose Gel 15 GM/37.5 ML TUBE PO PRN ×2 (20:02)
[2019-10-26] MEDS: Gabapentin 300 MG CAPSULE PO SCH (20:46)
[2019-10-26] MEDS: lamoTRIgine 100 MG TABLET PO SCH (20:48)
[2019-10-26] MEDS: levETIRAcetam 250 MG TABLET PO SCH (20:49)
[2019-10-26] MEDS ORDERED: Insulin DETEMIR 100 UNIT/ML X5UNITS SQ SCH (21:00)
[2019-10-26] MEDS ORDERED: Calcium Acetate 667 MG CAPSULE PO PRN (21:00)
[2019-10-26] MEDS ORDERED: Insulin LISPRO 300 UNITS/3 ML VIAL SQ SCH (21:00)
[2019-10-26] MEDS: Ringers Solution, Lactated 1,000 ML IVC SCH (21:12)
[2019-10-26] MEDS: Budesonide/Formoterol 80/4.5 1 PUFF INH IH SCH (22:30)
[2019-10-26] MEDS: Ipratropium/Albuterol Neb 3 ML IH SCH (22:30)
[2019-10-26] MEDS: CeFAZolin 2 GM/120 ML BAG IVPB SCH (23:31)
[2019-10-27] MEDS: carvediloL 6.25 MG TABLET PO SCH ×3 (00:21→17:22)
[2019-10-27] MEDS: hydrALAZINE 10 MG TABLET PO SCH ×4 (01:19→17:21)
[2019-10-27 05:30] LABS: Hematocrit 30.6 % (35.3-44.9); Hemoglobin 9.8 g/dL (11.5-15.4)
[2019-10-27 05:49] LABS: Calcium 8.1 mg/dL (8.6-10.3); Potassium 4.3 mEq/L (3.5-5.1)
[2019-10-27] MEDS: *HR* OxyCODONE Immed Rel 5 MG TABLET PO PRN ×3 (06:34→17:24)
[2019-10-27] MEDS: Insulin LISPRO 300 UNITS/3 ML VIAL SQ SCH ×3 (08:02→17:25)
[2019-10-27] MEDS ORDERED: Aspirin Enteric Coated 81 MG Tablet PO SCH ×2 (09:00)
[2019-10-27] MEDS ORDERED: Topiramate 25 MG TABLET PO SCH (09:00)
[2019-10-27] MEDS: levETIRAcetam 250 MG TABLET PO SCH (09:20)
[2019-10-27] MEDS: lamoTRIgine 100 MG TABLET PO SCH (09:21)
[2019-10-27] MEDS: Gabapentin 300 MG CAPSULE PO SCH (09:21)
[2019-10-27] MEDS: Calcium Acetate 667 MG CAPSULE PO SCH ×3 (09:22→17:21)
[2019-10-27] MEDS: DEXTROAMPHETAMINE PO SCH ×2 (09:23→17:18)
[2019-10-27] MEDS: AMPHETAMINE PO SCH ×2 (09:23→17:18)
[2019-10-27] MEDS: CeFAZolin 2 GM/120 ML BAG IVPB SCH (09:23)
[2019-10-27] MEDS: Budesonide/Formoterol 80/4.5 1 PUFF INH IH SCH (10:55)
[2019-10-27] MEDS: Ipratropium/Albuterol Neb 3 ML IH SCH (10:56)
[2019-10-27] MEDS: Ringers Solution, Lactated 1,000 ML IVC SCH (11:56)
[2019-10-27 16:04] VITALS: BP 173/67
[2019-10-27] MEDS ORDERED: carvediloL 25 MG TABLET PO ONE (21:51)
== END 2019-10-27 19:05 | disposition home health service (06) | DRG 483 ==
LOC: SAMDAY 11:04 → 3NENU 17:40
PROVIDERS: ADMIT Orthopaedic Surgery; ATTEND Orthopaedic Surgery

== ENCOUNTER 2019-11-11 17:37 | Inpatient (IN) ==
[2019-11-11 18:25] LABS: Basophils % 0.2 %; Eosinophils # 0.3 K/mcL (0.0-0.6); Eosinophils % 5.5 %; Hematocrit 30.5 % (35.3-44.9); Hemoglobin 9.5 g/dL (11.5-15.4); Immature Granulocytes % 0.2 % (0-4); Lymphocytes # 1.2 K/mcL (0.6-4.6); Lymphocytes % 21.1 %; Mean Corpuscular HGB Conc 31.1 g/dL (31.6-35.5); Mean Corpuscular Hemoglobin 31.7 pg (28.0-33.3); Mean Corpuscular Volume 101.7 fL (83.0-100.0); Mean Platelet Volume 8.7 fL (9.4-12.4); Monocytes # 0.4 K/mcL (0.0-1.3); Monocytes % 7.3 %; Neutrophils # 3.7 K/mcL (1.6-8.9); Platelet Count 253 K/mcL (140-400); Red Cell Distribution Width 14.6 % (11.5-14.5); Segmented Neutrophils % 65.7 %; White Blood Count 5.7 K/mcL (4.3-11.1)
[2019-11-11 18:27] LABS: INR 1.3
[2019-11-11 18:50] LABS: Alanine Aminotransferase < 3 Units/L (7-52); Albumin 3.5 g/dL (3.5-5.7); Albumin/Globulin Ratio 1.1 (1.1-2.2); Alkaline Phosphatase 205 Units/L (34-104); Aspartate Amino Transferase 10 Units/L (13-39); BUN/Creatinine Ratio 6 (6-26); Bilirubin,Total 0.8 mg/dL (0.3-1.0); Blood Urea Nitrogen 34 mg/dL (6-20); Calcium 8.7 mg/dL (8.6-10.3); Carbon Dioxide 26 mEq/L (23-29); Chloride 97 mEq/L (98-107); Globulin 3.2 g/dL (2.4-3.5); Glucose 177 mg/dL (70-105); Magnesium 1.8 mg/dL (1.6-2.6); Osmolality,Calculated 288 (280-300); Potassium 4.2 mEq/L (3.5-5.1); Sodium 133 mEq/L (136-145); Total Protein 6.7 g/dL (6.4-8.9); Troponin I < 0.03 ng/mL (< 0.04); eGFR For African Americans 10 (> 60); eGFR For Non-African Americans 9 (> 60)
[2019-11-11] MEDS ORDERED: *HR* Dextrose 50 % in Water (Vial) 50 ML VIAL IVP PRN (23:09)
[2019-11-11] MEDS ORDERED: D5% in Water 1,000 ML IVC PRN (23:09)
[2019-11-11] MEDS ORDERED: Dextrose Gel 15 GM/37.5 ML TUBE PO PRN ×2 (23:09)
[2019-11-12] MEDS ORDERED: Perflutren Lipid Microsphere 1.3 ML in 0.9 % Sodium Chloride 8.7 ML IVP PRN (03:46)
[2019-11-12 05:04] LABS: INR 1.3; Prothrombin Time 14.4 Seconds (9.4-12.1)
[2019-11-12 05:09] LABS: Hematocrit 30.1 % (35.3-44.9); Hemoglobin 9.4 g/dL (11.5-15.4); Mean Corpuscular HGB Conc 31.2 g/dL (31.6-35.5); Mean Corpuscular Hemoglobin 32.6 pg (28.0-33.3); Mean Corpuscular Volume 104.5 fL (83.0-100.0); Mean Platelet Volume 8.8 fL (9.4-12.4); Platelet Count 232 K/mcL (140-400); Red Blood Count 2.88 M/mcL (3.82-4.97); Red Cell Distribution Width 14.6 % (11.5-14.5); White Blood Count 5.3 K/mcL (4.3-11.1)
[2019-11-12 05:18] LABS: Albumin 3.3 g/dL (3.5-5.7); Albumin/Globulin Ratio 1.1 (1.1-2.2); Alkaline Phosphatase 199 Units/L (34-104); Aspartate Amino Transferase 9 Units/L (13-39); BUN/Creatinine Ratio 6 (6-26); Bilirubin,Total 0.7 mg/dL (0.3-1.0); Blood Urea Nitrogen 37 mg/dL (6-20); Calcium 8.6 mg/dL (8.6-10.3); Carbon Dioxide 25 mEq/L (23-29); Chloride 99 mEq/L (98-107); Chol/HDL Ratio 3.3 (0-4.9); Cholesterol 70 mg/dL (< 200); Globulin 2.9 g/dL (2.4-3.5); Glucose 142 mg/dL (70-105); HDL Cholesterol 21 mg/dL (40-59); LDL Cholesterol,Calculated 38 mg/dL (< 100); Osmolality,Calculated 289 (280-300); Potassium 4.5 mEq/L (3.5-5.1); Sodium 134 mEq/L (136-145); Total Protein 6.2 g/dL (6.4-8.9); Triglycerides 55 mg/dL (< 150); Troponin I < 0.03 ng/mL (< 0.04); eGFR For African Americans 9 (> 60); eGFR For Non-African Americans 8 (> 60)
[2019-11-12 05:31] LABS: Alanine Aminotransferase < 3 Units/L (7-52)
[2019-11-12 06:14] LABS: Adenovirus Not Detected (Not Detect); Bordetella Pertussis Not Detected (Not Detect); Chlamydophila pneumoniae Not Detected (Not Detect); Coronavirus 229E Not Detected (Not Detect); Coronavirus HKU1 Not Detected (Not Detect); Coronavirus NL63 Not Detected (Not Detect); Coronavirus OC43 Not Detected (Not Detect); Human Metapneumovirus Not Detected (Not Detect); Human Rhinovirus/Enterovirus Not Detected (Not Detect); Influenza A Subtype 2009 H1 Not Detected (Not Detect); Influenza B Not Detected (Not Detect); Mycoplasma pneumoniae Not Detected (Not Detect); Parainfluenza Virus 1 Not Detected (Not Detect); Parainfluenza Virus 2 Not Detected (Not Detect); Parainfluenza Virus 3 Not Detected (Not Detect); Parainfluenza Virus 4 Not Detected (Not Detect); Respiratory Syncytial Virus Not Detected (Not Detect); SARS-CoV-2 Not Detected (Not Detect)
[2019-11-12 06:26] LABS: ABG Base Excess 2 mEq/L (-2 to 3); ABG HCO3 28 mEq/L (21-27); ABG Oxygen Saturation 95 % (95-98); ABG PCO2 51 mmHg (35-45); ABG PH 7.35 pH Units (7.32-7.45); ABG PO2 82 mmHg (85-104); ABG TCO2 30 mEq/L (20-26)
[2019-11-12] MEDS ORDERED: 0.9 % Sodium Chloride 1,000 ML ONE (07:28)
[2019-11-12] MEDS: Insulin LISPRO 300 UNITS/3 ML VIAL SQ SCH ×3 (07:36→17:43)
[2019-11-12 07:50] LABS: Estimated Average Glucose 103 mg/dl
[2019-11-12] MEDS: carvediloL 6.25 MG TABLET PO SCH ×2 (08:07→17:40)
[2019-11-12] MEDS ORDERED: 0.9 % Sodium Chloride 250 ML IVC PRN (08:28)
[2019-11-12] MEDS ORDERED: 0.9 % Sodium Chloride 1,000 ML PRIME SCH (08:30)
[2019-11-12] MEDS: Gabapentin 300 MG CAPSULE PO SCH ×2 (08:48→20:51)
[2019-11-12] MEDS: lamoTRIgine 100 MG TABLET PO SCH ×2 (08:49→20:51)
[2019-11-12] MEDS: levETIRAcetam 250 MG TABLET PO SCH ×2 (08:49→20:51)
[2019-11-12] MEDS: Aspirin Enteric Coated 81 MG Tablet PO SCH (08:49)
[2019-11-12] MEDS ORDERED: Calcium Acetate 667 MG CAPSULE PO PRN (09:19)
[2019-11-12] MEDS: Budesonide/Formoterol 80/4.5 1 PUFF INH IH SCH ×2 (10:23→22:12)
[2019-11-12] MEDS: Loratadine 10 MG TABLET PO SCH (11:30)
[2019-11-12] MEDS: Fluticasone Propionate Nasal 50 MCG/SPRAY BOTTLE NS SCH (11:30)
[2019-11-12] MEDS: Calcium Acetate 667 MG CAPSULE PO SCH ×2 (12:00→17:40)
[2019-11-12] MEDS: *HR* HYDROcodone/Acet 5/325 mg TABLET PO PRN (15:34)
[2019-11-12] MEDS: Insulin DETEMIR 100 UNIT/ML X5UNITS SQ SCH (20:51)
[2019-11-12] MEDS: TOPIRAMATE 100 MG PO SCH (20:51)
[2019-11-13] MEDS: *HR* HYDROcodone/Acet 5/325 mg TABLET PO PRN ×2 (03:34→15:09)
[2019-11-13 06:43] LABS: Calcium 8.8 mg/dL (8.6-10.3); Magnesium 1.9 mg/dL (1.6-2.6); Phosphorous 3.4 mg/dL (2.7-4.5); Potassium 4.2 mEq/L (3.5-5.1)
[2019-11-13] MEDS: Insulin LISPRO 300 UNITS/3 ML VIAL SQ SCH ×3 (07:57→18:45)
[2019-11-13] MEDS: Budesonide/Formoterol 80/4.5 1 PUFF INH IH SCH ×2 (08:05→19:53)
[2019-11-13] MEDS: lamoTRIgine 100 MG TABLET PO SCH ×2 (08:13→21:32)
[2019-11-13] MEDS: levETIRAcetam 250 MG TABLET PO SCH ×2 (08:13→21:32)
[2019-11-13] MEDS: Gabapentin 300 MG CAPSULE PO SCH ×2 (08:14→21:32)
[2019-11-13] MEDS: Calcium Acetate 667 MG CAPSULE PO SCH ×3 (08:14→18:44)
[2019-11-13] MEDS: Loratadine 10 MG TABLET PO SCH (08:14)
[2019-11-13] MEDS: carvediloL 6.25 MG TABLET PO SCH ×2 (08:14→18:44)
[2019-11-13] MEDS: Aspirin Enteric Coated 81 MG Tablet PO SCH (08:14)
[2019-11-13] MEDS: Fluticasone Propionate Nasal 50 MCG/SPRAY BOTTLE NS SCH (09:00)
[2019-11-13] MEDS: *HR* Heparin 5,000 UNIT/ML VIAL SQ SCH (21:09)
[2019-11-13] MEDS ORDERED: Albuterol 2.5 MG/3 ML NEBULIZER IH PRN (21:14)
[2019-11-13] MEDS: TOPIRAMATE 100 MG PO SCH (21:33)
[2019-11-13] MEDS: Insulin DETEMIR 100 UNIT/ML X5UNITS SQ SCH (21:34)
[2019-11-14] MEDS: *HR* HYDROcodone/Acet 5/325 mg TABLET PO PRN ×2 (05:31→20:56)
[2019-11-14] MEDS: *HR* Heparin 5,000 UNIT/ML VIAL SQ SCH ×2 (05:31→17:05)
[2019-11-14 07:06] LABS: Basophils % 0.4 %; Eosinophils # 0.2 K/mcL (0.0-0.6); Eosinophils % 4.1 %; Hematocrit 30.1 % (35.3-44.9); Hemoglobin 9.3 g/dL (11.5-15.4); Immature Granulocytes % 0.4 % (0-4); Lymphocytes # 1.1 K/mcL (0.6-4.6); Lymphocytes % 20.9 %; Mean Corpuscular HGB Conc 30.9 g/dL (31.6-35.5); Mean Corpuscular Volume 103.4 fL (83.0-100.0); Mean Platelet Volume 8.7 fL (9.4-12.4); Monocytes # 0.4 K/mcL (0.0-1.3); Monocytes % 7.3 %; Neutrophils # 3.6 K/mcL (1.6-8.9); Platelet Count 222 K/mcL (140-400); Red Blood Count 2.91 M/mcL (3.82-4.97); Red Cell Distribution Width 14.2 % (11.5-14.5); Segmented Neutrophils % 66.9 %; White Blood Count 5.4 K/mcL (4.3-11.1)
[2019-11-14 07:28] LABS: Calcium 8.8 mg/dL (8.6-10.3); Potassium 4.7 mEq/L (3.5-5.1)
[2019-11-14] MEDS: Budesonide/Formoterol 80/4.5 1 PUFF INH IH SCH ×2 (07:30→21:32)
[2019-11-14 07:39] LABS: Thyroid Stimulating Hormone 2.735 mcIU/mL (0.340-5.600)
[2019-11-14] MEDS ORDERED: 0.9 % Sodium Chloride 250 ML IVC PRN (07:54)
[2019-11-14] MEDS ORDERED: 0.9 % Sodium Chloride 1,000 ML PRIME SCH (08:00)
[2019-11-14] MEDS: levETIRAcetam 250 MG TABLET PO SCH ×2 (08:03→20:55)
[2019-11-14] MEDS: Gabapentin 300 MG CAPSULE PO SCH ×2 (08:04→20:56)
[2019-11-14] MEDS: lamoTRIgine 100 MG TABLET PO SCH ×2 (08:05→20:56)
[2019-11-14] MEDS: Aspirin Enteric Coated 81 MG Tablet PO SCH (08:05)
[2019-11-14] MEDS: Loratadine 10 MG TABLET PO SCH (08:05)
[2019-11-14] MEDS: Insulin LISPRO 300 UNITS/3 ML VIAL SQ SCH ×3 (08:06→17:12)
[2019-11-14] MEDS: carvediloL 6.25 MG TABLET PO SCH ×2 (08:06→14:17)
[2019-11-14] MEDS: Calcium Acetate 667 MG CAPSULE PO SCH ×3 (08:06→17:06)
[2019-11-14] MEDS: Fluticasone Propionate Nasal 50 MCG/SPRAY BOTTLE NS SCH (08:08)
[2019-11-14 09:08] LABS: Folate 6.2 ng/mL (3.0-16.0)
[2019-11-14] MEDS: Insulin DETEMIR 100 UNIT/ML X5UNITS SQ SCH (20:55)
[2019-11-14] MEDS: TOPIRAMATE 100 MG PO SCH (20:56)
[2019-11-15 03:30] LABS: Hematocrit 30.2 % (35.3-44.9); Hemoglobin 9.2 g/dL (11.5-15.4); Mean Corpuscular HGB Conc 30.5 g/dL (31.6-35.5); Mean Corpuscular Volume 101.7 fL (83.0-100.0); Mean Platelet Volume 8.8 fL (9.4-12.4); Platelet Count 239 K/mcL (140-400); Red Blood Count 2.97 M/mcL (3.82-4.97); Red Cell Distribution Width 14.1 % (11.5-14.5); White Blood Count 4.7 K/mcL (4.3-11.1)
[2019-11-15 03:40] LABS: Calcium 8.6 mg/dL (8.6-10.3)
[2019-11-15] MEDS: *HR* Heparin 5,000 UNIT/ML VIAL SQ SCH (05:11)
[2019-11-15] MEDS: Budesonide/Formoterol 80/4.5 1 PUFF INH IH SCH (07:40)
[2019-11-15] MEDS: Insulin LISPRO 300 UNITS/3 ML VIAL SQ SCH ×2 (08:49→11:56)
[2019-11-15] MEDS: carvediloL 6.25 MG TABLET PO SCH (09:10)
[2019-11-15] MEDS: Loratadine 10 MG TABLET PO SCH (09:10)
[2019-11-15] MEDS: *HR* HYDROcodone/Acet 5/325 mg TABLET PO PRN (09:11)
[2019-11-15] MEDS: Gabapentin 300 MG CAPSULE PO SCH (09:11)
[2019-11-15] MEDS: Aspirin Enteric Coated 81 MG Tablet PO SCH (09:11)
[2019-11-15] MEDS: lamoTRIgine 100 MG TABLET PO SCH (09:11)
[2019-11-15] MEDS: Calcium Acetate 667 MG CAPSULE PO SCH ×2 (09:11→11:56)
[2019-11-15] MEDS: levETIRAcetam 250 MG TABLET PO SCH (09:11)
[2019-11-15] MEDS: Fluticasone Propionate Nasal 50 MCG/SPRAY BOTTLE NS SCH (09:11)
[2019-11-15] MEDS ORDERED: amLODIPine 5 MG TABLET PO SCH (09:15)
[2019-11-15 11:48] VITALS: BP 134/76
== END 2019-11-15 14:53 | DRG 69 ==
LOC: 3BNU 17:37 → EMEROOARM 17:37 → SUATTDRO 20:50 → 3BNU 22:01
PROVIDERS: ADMIT Student in an Organized Health Care Education/Training Program; ATTEND Internal Medicine

== ENCOUNTER 2020-04-16 11:23 | Observation (INO) ==
[2020-04-16] MEDS ORDERED: Isovue-370 500 ML BOTTLE IVP ONE ×2 (11:52→13:44)
[2020-04-16 11:59] LABS: Basophils % 0.3 %; Eosinophils # 0.1 K/mcL (0.0-0.6); Eosinophils % 2.2 %; Hematocrit 21.5 % (35.3-44.9); Hemoglobin 7.1 g/dL (11.5-15.4); Immature Granulocytes % 0.3 % (0-4); Mean Corpuscular Hemoglobin 34.6 pg (28.0-33.3); Mean Corpuscular Volume 104.9 fL (83.0-100.0); Mean Platelet Volume 8.8 fL (9.4-12.4); Monocytes # 0.2 K/mcL (0.0-1.3); Monocytes % 7.7 %; Neutrophils # 1.8 K/mcL (1.6-8.9); Platelet Count 178 K/mcL (140-400); Red Blood Count 2.05 M/mcL (3.82-4.97); Red Cell Distribution Width 14.8 % (11.5-14.5); Segmented Neutrophils % 58.5 %; White Blood Count 3.1 K/mcL (4.3-11.1)
[2020-04-16 12:05] LABS: INR 1.1
[2020-04-16 12:07] LABS: Activated Partial Thrombo Time 27.6 Seconds (26.0-36.0)
[2020-04-16 12:32] LABS: Alanine Aminotransferase 9 Units/L (7-52); Albumin 3.8 g/dL (3.5-5.7); Albumin/Globulin Ratio 1.3 (1.1-2.2); Alkaline Phosphatase 205 Units/L (34-104); Aspartate Amino Transferase 14 Units/L (13-39); BUN/Creatinine Ratio 3 (6-26); Bilirubin,Total 0.5 mg/dL (0.3-1.0); Blood Urea Nitrogen 7 mg/dL (6-20); Calcium 9.4 mg/dL (8.6-10.3); Carbon Dioxide 29 mEq/L (23-29); Chloride 100 mEq/L (98-107); Globulin 2.9 g/dL (2.4-3.5); Glucose 149 mg/dL (70-105); Osmolality,Calculated 283 (280-300); Potassium 3.6 mEq/L (3.5-5.1); Sodium 136 mEq/L (136-145); Total Protein 6.7 g/dL (6.4-8.9); Troponin I < 0.03 ng/mL (< 0.04); eGFR For African Americans 29 (> 60); eGFR For Non-African Americans 24 (> 60)
[2020-04-16] MEDS ORDERED: 0.9 % Sodium Chloride 500 ML ONE (14:05)
[2020-04-16] MEDS ORDERED: *HR* OxyCODONE Immed Rel 5 MG TABLET PO PRN (16:45)
[2020-04-16] MEDS ORDERED: Ondansetron 4 MG/2 ML VIAL IVP PRN (16:45)
[2020-04-16] MEDS ORDERED: Acetaminophen 325 MG TABLET PO PRN (16:45)
[2020-04-16] MEDS ORDERED: Naloxone 0.4 MG/ML INJ IVP PRN (16:45)
[2020-04-16] MEDS: *HR* HYDROcodone/Acet 5/325 mg TABLET PO PRN (18:29)
[2020-04-16] MEDS ORDERED: *HR* Dextrose 50 % in Water (Vial) 50 ML VIAL IVP PRN (19:25)
[2020-04-16] MEDS ORDERED: D5% in Water 1,000 ML IVC PRN (19:25)
[2020-04-16] MEDS ORDERED: Dextrose Gel 15 GM/37.5 ML TUBE PO PRN ×2 (19:25)
[2020-04-16] MEDS ORDERED: Ipratropium/Albuterol Neb 3 ML IH PRN (19:27)
[2020-04-16] MEDS: Insulin LISPRO 300 UNITS/3 ML VIAL SUBQ SCH (19:40)
[2020-04-16 19:47] LABS: Estimated Average Glucose 100 mg/dl; Hemoglobin A1C 5.1 %
[2020-04-16] MEDS: predniSONE 20 MG TABLET PO SCH (20:07)
[2020-04-16] MEDS ORDERED: Calcium Acetate 667 MG CAPSULE PO PRN (20:58)
[2020-04-16] MEDS: Gabapentin 300 MG CAPSULE PO SCH (21:34)
[2020-04-16] MEDS: Mirtazapine 15 MG TABLET PO SCH (21:34)
[2020-04-16] MEDS: levETIRAcetam 250 MG TABLET PO SCH (21:34)
[2020-04-16 22:40] LABS: Hematocrit 23.7 % (35.3-44.9); Hemoglobin 7.7 g/dL (11.5-15.4)
[2020-04-16] MEDS: Ipratropium/Albuterol Neb 3 ML IH SCH (22:50)
[2020-04-16] MEDS: Budesonide/Formoterol 160/4.5 1 PUFF INH IH SCH (22:51)
[2020-04-17 01:16] LABS: Eosinophils % 0.4 %; Hematocrit 24.3 % (35.3-44.9); Immature Granulocytes % 0.2 % (0-4); Lymphocytes # 0.5 K/mcL (0.6-4.6); Lymphocytes % 10.8 %; Mean Corpuscular HGB Conc 32.9 g/dL (31.6-35.5); Mean Corpuscular Hemoglobin 33.6 pg (28.0-33.3); Mean Corpuscular Volume 102.1 fL (83.0-100.0); Mean Platelet Volume 9.2 fL (9.4-12.4); Monocytes # 0.1 K/mcL (0.0-1.3); Monocytes % 2.6 %; Neutrophils # 4.3 K/mcL (1.6-8.9); Platelet Count 165 K/mcL (140-400); Red Blood Count 2.38 M/mcL (3.82-4.97); Red Cell Distribution Width 16.3 % (11.5-14.5)
[2020-04-17 01:42] LABS: % Iron Saturation 82 % (15-50); Iron 173 mcg/dL (50-170); Transferrin 150 mg/dL (203-362)
[2020-04-17 01:54] LABS: Albumin 3.4 g/dL (3.5-5.7); Albumin/Globulin Ratio 1.2 (1.1-2.2); Bilirubin,Total 0.4 mg/dL (0.3-1.0); Calcium 8.5 mg/dL (8.6-10.3); Globulin 2.9 g/dL (2.4-3.5); Magnesium 1.7 mg/dL (1.6-2.6); Phosphorous 3.5 mg/dL (2.7-4.5); Total Protein 6.3 g/dL (6.4-8.9)
[2020-04-17 01:56] LABS: Ferritin 893 ng/mL (10-120)
[2020-04-17 02:05] LABS: Folate 14.7 ng/mL (3.0-16.0)
[2020-04-17] MEDS: Ipratropium/Albuterol Neb 3 ML IH SCH ×4 (04:07→22:54)
[2020-04-17] MEDS: Gabapentin 300 MG CAPSULE PO SCH ×2 (08:36→19:34)
[2020-04-17] MEDS: Topiramate 25 MG TABLET PO SCH ×2 (08:37→19:34)
[2020-04-17] MEDS: Nicotine 14 MG PATCH.TD24 TD SCH (08:37)
[2020-04-17] MEDS: Loratadine 10 MG TABLET PO SCH (08:37)
[2020-04-17] MEDS: predniSONE 20 MG TABLET PO SCH (08:37)
[2020-04-17] MEDS: Renal Vitamin 1 CAP CAPSULE PO SCH (08:37)
[2020-04-17] MEDS: Calcium Acetate 667 MG CAPSULE PO SCH ×3 (08:37→16:42)
[2020-04-17] MEDS: levETIRAcetam 250 MG TABLET PO SCH ×2 (08:38→19:34)
[2020-04-17] MEDS: Insulin LISPRO 300 UNITS/3 ML VIAL SUBQ SCH ×4 (08:38→20:49)
[2020-04-17] MEDS: Fluticasone Propionate Nasal 50 MCG/SPRAY BOTTLE NS SCH (08:45)
[2020-04-17] MEDS: Budesonide/Formoterol 160/4.5 1 PUFF INH IH SCH ×2 (10:13→22:54)
[2020-04-17] MEDS: *HR* HYDROcodone/Acet 5/325 mg TABLET PO PRN (19:34)
[2020-04-17] MEDS: Mirtazapine 15 MG TABLET PO SCH (19:34)
[2020-04-18] MEDS: Ipratropium/Albuterol Neb 3 ML IH SCH ×2 (03:56→10:56)
[2020-04-18 05:18] LABS: Hematocrit 25.3 % (35.3-44.9); Hemoglobin 8.2 g/dL (11.5-15.4); Lymphocytes # 0.5 K/mcL (0.6-4.6); Lymphocytes % 7.4 %; Mean Corpuscular HGB Conc 32.4 g/dL (31.6-35.5); Mean Corpuscular Hemoglobin 33.3 pg (28.0-33.3); Mean Corpuscular Volume 102.8 fL (83.0-100.0); Mean Platelet Volume 9.2 fL (9.4-12.4); Monocytes # 0.2 K/mcL (0.0-1.3); Neutrophils # 6.2 K/mcL (1.6-8.9); Platelet Count 180 K/mcL (140-400); Red Blood Count 2.46 M/mcL (3.82-4.97); Red Cell Distribution Width 16.2 % (11.5-14.5); Segmented Neutrophils % 88.6 %
[2020-04-18 05:41] LABS: Calcium 8.3 mg/dL (8.6-10.3); Potassium 5.3 mEq/L (3.5-5.1)
[2020-04-18] MEDS ORDERED: 0.9 % Sodium Chloride 250 ML IVC PRN (07:07)
[2020-04-18] MEDS ORDERED: 0.9 % Sodium Chloride 1,000 ML PRIME SCH (07:15)
[2020-04-18] MEDS: Gabapentin 300 MG CAPSULE PO SCH (08:15)
[2020-04-18] MEDS: levETIRAcetam 250 MG TABLET PO SCH (08:15)
[2020-04-18] MEDS: Renal Vitamin 1 CAP CAPSULE PO SCH (08:15)
[2020-04-18] MEDS: Loratadine 10 MG TABLET PO SCH (08:15)
[2020-04-18] MEDS: Calcium Acetate 667 MG CAPSULE PO SCH ×2 (08:15→11:07)
[2020-04-18] MEDS: Insulin LISPRO 300 UNITS/3 ML VIAL SUBQ SCH ×2 (08:16→12:38)
[2020-04-18] MEDS: predniSONE 20 MG TABLET PO SCH (08:16)
[2020-04-18] MEDS: Topiramate 25 MG TABLET PO SCH (08:16)
[2020-04-18] MEDS: Nicotine 14 MG PATCH.TD24 TD SCH (08:17)
[2020-04-18] MEDS: Fluticasone Propionate Nasal 50 MCG/SPRAY BOTTLE NS SCH (08:20)
[2020-04-18] MEDS ORDERED: Topiramate 25 MG TABLET PO SCH (09:00)
[2020-04-18 09:20] LABS: Hepatitis B Surface Antibody 176.96 mIU/mL
[2020-04-18 09:31] LABS: Hepatitis B Surface Antigen Nonreactive (Nonreactive)
[2020-04-18] MEDS: Budesonide/Formoterol 160/4.5 1 PUFF INH IH SCH (10:56)
[2020-04-18 15:53] VITALS: BP 102/64
== END 2020-04-18 16:24 | disposition home or self-care (01) ==
LOC: EMEROOARM 11:23 → 2ANU 11:23
PROVIDERS: ADMIT Internal Medicine; ATTEND Internal Medicine

== ENCOUNTER 2020-05-07 10:47 | Inpatient (IN) ==
[2020-05-07 11:25] LABS: Basophils % 0.2 %; Hematocrit 19.7 % (35.3-44.9); Hemoglobin 6.4 g/dL (11.5-15.4); Immature Granulocytes % 0.5 % (0-4); Lymphocytes # 0.7 K/mcL (0.6-4.6); Lymphocytes % 16.9 %; Mean Corpuscular HGB Conc 32.5 g/dL (31.6-35.5); Mean Corpuscular Volume 101.5 fL (83.0-100.0); Mean Platelet Volume 9.4 fL (9.4-12.4); Monocytes # 0.3 K/mcL (0.0-1.3); Monocytes % 7.6 %; Neutrophils # 3.1 K/mcL (1.6-8.9); Platelet Count 207 K/mcL (140-400); Red Blood Count 1.94 M/mcL (3.82-4.97); Red Cell Distribution Width 14.5 % (11.5-14.5); Segmented Neutrophils % 73.8 %; White Blood Count 4.2 K/mcL (4.3-11.1)
[2020-05-07 11:31] LABS: INR 1.1; Prothrombin Time 12.3 Seconds (9.4-12.1)
[2020-05-07 11:39] LABS: Activated Partial Thrombo Time 20.4 Seconds (26.0-36.0)
[2020-05-07 11:44] LABS: BUN/Creatinine Ratio 3 (6-26); Blood Urea Nitrogen 9 mg/dL (6-20); Calcium 8.8 mg/dL (8.6-10.3); Carbon Dioxide 30 mEq/L (23-29); Chloride 102 mEq/L (98-107); Glucose 234 mg/dL (70-105); Osmolality,Calculated 292 (280-300); Potassium 3.6 mEq/L (3.5-5.1); Sodium 138 mEq/L (136-145); Troponin I < 0.03 ng/mL (< 0.04); eGFR For African Americans 24 (> 60); eGFR For Non-African Americans 20 (> 60)
[2020-05-07] MEDS ORDERED: Ondansetron 4 MG/2 ML VIAL IVP PRN (14:01)
[2020-05-07] MEDS ORDERED: Naloxone 0.4 MG/ML INJ IVP PRN (14:01)
[2020-05-07] MEDS ORDERED: *HR* Dextrose 50 % in Water (Vial) 50 ML VIAL IVP PRN (14:05)
[2020-05-07] MEDS ORDERED: Dextrose Gel 15 GM/37.5 ML TUBE PO PRN ×2 (14:05)
[2020-05-07] MEDS ORDERED: D5% in Water 1,000 ML IVC PRN (14:05)
[2020-05-07] MEDS: Magnesium Oxide 400 MG TABLET PO SCH (16:42)
[2020-05-07] MEDS: Insulin LISPRO 300 UNITS/3 ML VIAL SUBQ SCH (18:08)
[2020-05-07 20:23] LABS: Hematocrit 25.5 % (35.3-44.9); Mean Corpuscular HGB Conc 31.8 g/dL (31.6-35.5); Mean Corpuscular Hemoglobin 32.5 pg (28.0-33.3); Mean Corpuscular Volume 102.4 fL (83.0-100.0); Mean Platelet Volume 9.4 fL (9.4-12.4); Platelet Count 199 K/mcL (140-400); Red Blood Count 2.49 M/mcL (3.82-4.97); Red Cell Distribution Width 15.3 % (11.5-14.5)
[2020-05-07 20:27] LABS: Hemoglobin 8.1 g/dL (11.5-15.4)
[2020-05-07] MEDS: lamoTRIgine 100 MG TABLET PO SCH (20:38)
[2020-05-07] MEDS: Megestrol Acetate 400 MG/10 ML UDC PO SCH (20:38)
[2020-05-07] MEDS: levETIRAcetam 250 MG TABLET PO SCH (20:38)
[2020-05-07] MEDS: TOPIRAMATE 100 MG PO SCH (20:43)
[2020-05-07] MEDS: Budesonide/Formoterol 160/4.5 1 PUFF INH IH SCH (20:43)
[2020-05-07] MEDS: DEXTROAMPHETAMINE PO SCH (20:43)
[2020-05-07] MEDS: AMPHETAMINE PO SCH (20:43)
[2020-05-08] MEDS: Insulin LISPRO 300 UNITS/3 ML VIAL SUBQ SCH ×4 (00:13→20:41)
[2020-05-08 02:34] LABS: Basophils % 0.2 %; Eosinophils # 0.1 K/mcL (0.0-0.6); Hematocrit 21.6 % (35.3-44.9); Hemoglobin 7.1 g/dL (11.5-15.4); Immature Granulocytes % 0.2 % (0-4); Lymphocytes # 1.6 K/mcL (0.6-4.6); Lymphocytes % 39.2 %; Mean Corpuscular HGB Conc 32.9 g/dL (31.6-35.5); Mean Corpuscular Hemoglobin 32.9 pg (28.0-33.3); Mean Platelet Volume 9.5 fL (9.4-12.4); Monocytes # 0.4 K/mcL (0.0-1.3); Monocytes % 9.2 %; Platelet Count 192 K/mcL (140-400); Red Blood Count 2.16 M/mcL (3.82-4.97); Red Cell Distribution Width 15.3 % (11.5-14.5); Segmented Neutrophils % 49.2 %
[2020-05-08 02:56] LABS: Albumin/Globulin Ratio 1.3 (1.1-2.2); Bilirubin,Total 0.5 mg/dL (0.3-1.0); Calcium 8.2 mg/dL (8.6-10.3); Globulin 2.4 g/dL (2.4-3.5); Potassium 4.2 mEq/L (3.5-5.1); Total Protein 5.4 g/dL (6.4-8.9)
[2020-05-08] MEDS ORDERED: Pantoprazole 40 MG VIAL IVP SCH (09:00)
[2020-05-08] MEDS: Megestrol Acetate 400 MG/10 ML UDC PO SCH ×2 (09:13→20:41)
[2020-05-08] MEDS: Fluticasone Propionate Nasal 50 MCG/SPRAY BOTTLE NS SCH (09:14)
[2020-05-08] MEDS: levETIRAcetam 250 MG TABLET PO SCH ×2 (09:14→20:38)
[2020-05-08] MEDS: lamoTRIgine 100 MG TABLET PO SCH ×2 (09:15→20:35)
[2020-05-08] MEDS: DEXTROAMPHETAMINE PO SCH (09:16)
[2020-05-08] MEDS: AMPHETAMINE PO SCH (09:16)
[2020-05-08] MEDS: Budesonide/Formoterol 160/4.5 1 PUFF INH IH SCH ×2 (10:02→19:54)
[2020-05-08] MEDS: Tiotropium 10 INH DOSE IH SCH (10:02)
[2020-05-08] MEDS ORDERED: Dextrose Gel 15 GM/37.5 ML TUBE PO PRN ×2 (16:41)
[2020-05-08] MEDS ORDERED: *HR* Dextrose 50 % in Water (Vial) 50 ML VIAL IVP PRN (16:41)
[2020-05-08] MEDS ORDERED: D5% in Water 1,000 ML IVC PRN (16:41)
[2020-05-08] MEDS ORDERED: Ipratropium/Albuterol Neb 3 ML IH PRN (16:46)
[2020-05-08] MEDS ORDERED: Calcium Acetate 667 MG CAPSULE PO PRN (16:50)
[2020-05-08] MEDS: Calcium Acetate 667 MG CAPSULE PO SCH (17:46)
[2020-05-08] MEDS: Mirtazapine 15 MG TABLET PO SCH (20:35)
[2020-05-08] MEDS: Gabapentin 300 MG CAPSULE PO SCH (20:35)
[2020-05-08] MEDS: TOPIRAMATE 100 MG PO SCH (20:37)
[2020-05-08] MEDS: Melatonin 3 MG TABLET PO SCH (20:42)
[2020-05-09 03:50] LABS: Hematocrit 20.1 % (35.3-44.9); Hemoglobin 6.5 g/dL (11.5-15.4); Mean Corpuscular HGB Conc 32.3 g/dL (31.6-35.5); Mean Corpuscular Hemoglobin 32.8 pg (28.0-33.3); Mean Corpuscular Volume 101.5 fL (83.0-100.0); Mean Platelet Volume 9.4 fL (9.4-12.4); Platelet Count 211 K/mcL (140-400); Red Blood Count 1.98 M/mcL (3.82-4.97); Red Cell Distribution Width 14.8 % (11.5-14.5)
[2020-05-09 03:58] LABS: Estimated Average Glucose 91 mg/dl; Hemoglobin A1C 4.8 %
[2020-05-09 04:11] LABS: Calcium 8.1 mg/dL (8.6-10.3); Potassium 4.6 mEq/L (3.5-5.1)
[2020-05-09] MEDS ORDERED: 0.9 % Sodium Chloride 250 ML IVC PRN (07:18)
[2020-05-09] MEDS ORDERED: 0.9 % Sodium Chloride 250 ML IVC SCH (07:30)
[2020-05-09] MEDS ORDERED: 0.9 % Sodium Chloride 1,000 ML PRIME SCH (07:30)
[2020-05-09] MEDS: Insulin LISPRO 300 UNITS/3 ML VIAL SUBQ SCH ×4 (08:42→20:50)
[2020-05-09] MEDS: Calcium Acetate 667 MG CAPSULE PO SCH ×3 (08:45→17:36)
[2020-05-09] MEDS: Budesonide/Formoterol 160/4.5 1 PUFF INH IH SCH ×2 (09:47→23:51)
[2020-05-09] MEDS: Tiotropium 10 INH DOSE IH SCH (09:47)
[2020-05-09] MEDS: Renal Vitamin 1 CAP CAPSULE PO SCH (10:56)
[2020-05-09] MEDS: levETIRAcetam 250 MG TABLET PO SCH ×2 (10:56→20:23)
[2020-05-09] MEDS: lamoTRIgine 100 MG TABLET PO SCH ×2 (10:56→20:27)
[2020-05-09] MEDS: Aspirin Enteric Coated 81 MG Tablet PO SCH (10:56)
[2020-05-09] MEDS: Gabapentin 300 MG CAPSULE PO SCH (10:56)
[2020-05-09] MEDS: Loratadine 10 MG TABLET PO SCH (10:56)
[2020-05-09] MEDS: Fluticasone Propionate Nasal 50 MCG/SPRAY BOTTLE NS SCH (10:57)
[2020-05-09] MEDS: Megestrol Acetate 400 MG/10 ML UDC PO SCH ×2 (11:01→20:29)
[2020-05-09] MEDS ORDERED: *HR* HYDROcodone/Acet 5/325 mg TABLET PO PRN (12:05)
[2020-05-09] MEDS: DEXTROAMPHETAMINE PO SCH ×2 (12:31→17:36)
[2020-05-09] MEDS: AMPHETAMINE PO SCH ×2 (12:31→17:36)
[2020-05-09] MEDS: Magnesium Oxide 400 MG TABLET PO SCH (17:36)
[2020-05-09] MEDS: Mirtazapine 15 MG TABLET PO SCH (20:27)
[2020-05-09] MEDS: Melatonin 3 MG TABLET PO SCH (20:33)
[2020-05-09] MEDS: TOPIRAMATE 100 MG PO SCH (20:55)
[2020-05-09] MEDS ORDERED: Gabapentin 300 MG CAPSULE PO SCH (21:00)
[2020-05-09 21:35] LABS: Hemoglobin 11.1 g/dL (11.5-15.4)
[2020-05-09] MEDS ORDERED: *HR* Succinylcholine 200 MG/10 ML VIAL IVP ONE (22:00)
[2020-05-09] MEDS ORDERED: *HR* Propofol 200 MG/20 ML VIAL IVP ONE (22:00)
[2020-05-09] MEDS ORDERED: Lidocaine -MPF 2% 2 ML VIAL ONE (22:00)
[2020-05-09] MEDS ORDERED: *HR* FentaNYL (PF) 100 MCG/2 ML VIAL ONE (22:00)
[2020-05-09] MEDS ORDERED: *HR* Midazolam HCl 2 MG/2 ML VIAL ONE (22:00)
[2020-05-09] MEDS ORDERED: Morphine Sulfate 2 MG/ML SYRINGE IVP PRN (22:51)
[2020-05-09] MEDS ORDERED: *HR* Rocuronium Bromide 50 MG/5 ML VIAL ONE (22:56)
[2020-05-09] MEDS ORDERED: MetroNIDAZOLE 500 MG/100 ML 500 MG/100 ML BAG IVPB ONE (23:05)
[2020-05-09] MEDS ORDERED: Ondansetron 4 MG/2 ML VIAL ONE (23:14)
[2020-05-10 03:24] LABS: Basophils % 0.4 %; Eosinophils # 0.1 K/mcL (0.0-0.6); Eosinophils % 1.3 %; Hematocrit 33.8 % (35.3-44.9); Immature Granulocytes % 0.6 % (0-4); Lymphocytes # 1.8 K/mcL (0.6-4.6); Lymphocytes % 34.1 %; Mean Corpuscular HGB Conc 32.5 g/dL (31.6-35.5); Mean Corpuscular Hemoglobin 31.5 pg (28.0-33.3); Mean Corpuscular Volume 96.8 fL (83.0-100.0); Mean Platelet Volume 8.9 fL (9.4-12.4); Monocytes # 0.4 K/mcL (0.0-1.3); Platelet Count 240 K/mcL (140-400); Red Blood Count 3.49 M/mcL (3.82-4.97); Red Cell Distribution Width 16.2 % (11.5-14.5); Segmented Neutrophils % 55.6 %; White Blood Count 5.4 K/mcL (4.3-11.1)
[2020-05-10 03:48] LABS: Calcium 8.5 mg/dL (8.6-10.3); Potassium 4.5 mEq/L (3.5-5.1)
[2020-05-10] MEDS: Insulin LISPRO 300 UNITS/3 ML VIAL SUBQ SCH ×2 (08:45→11:44)
[2020-05-10] MEDS: DEXTROAMPHETAMINE PO SCH ×2 (08:48→11:45)
[2020-05-10] MEDS: Renal Vitamin 1 CAP CAPSULE PO SCH ×2 (08:48→08:50)
[2020-05-10] MEDS: AMPHETAMINE PO SCH ×2 (08:48→11:45)
[2020-05-10] MEDS: Megestrol Acetate 400 MG/10 ML UDC PO SCH (08:49)
[2020-05-10] MEDS: Fluticasone Propionate Nasal 50 MCG/SPRAY BOTTLE NS SCH (08:49)
[2020-05-10] MEDS: Aspirin Enteric Coated 81 MG Tablet PO SCH (08:50)
[2020-05-10] MEDS: Loratadine 10 MG TABLET PO SCH (08:51)
[2020-05-10] MEDS: Calcium Acetate 667 MG CAPSULE PO SCH ×2 (08:51→11:45)
[2020-05-10] MEDS: levETIRAcetam 250 MG TABLET PO SCH (08:51)
[2020-05-10] MEDS: lamoTRIgine 100 MG TABLET PO SCH (08:53)
[2020-05-10] MEDS: Tiotropium 10 INH DOSE IH SCH (10:24)
[2020-05-10] MEDS: Budesonide/Formoterol 160/4.5 1 PUFF INH IH SCH (10:24)
[2020-05-10 11:15] VITALS: BP 142/78
== END 2020-05-10 13:42 | disposition home or self-care (01) | DRG 744 ==
LOC: EMEROOARM 10:47 → 2ANU 10:47 → SUATTDRO 14:21 → 2ANU 15:03
PROVIDERS: ADMIT General Practice; ATTEND Pharmacist

== ENCOUNTER 2020-08-27 12:02 | Observation (INO) ==
[2020-08-27] MEDS ORDERED: Isovue-370 500 ML BOTTLE IVP ONE (14:22)
[2020-08-27] MEDS ORDERED: Piperacillin/Tazobactam 3.375 GM in 0.9 % Sodium Chloride Mini Bag 100 ML IVPB ONE (14:23)
[2020-08-27 14:42] LABS: Hematocrit 40.7 % (35.3-44.9); Hemoglobin 13.7 g/dL (11.5-15.4); Mean Corpuscular HGB Conc 33.7 g/dL (31.6-35.5); Mean Corpuscular Hemoglobin 33.8 pg (28.0-33.3); Mean Corpuscular Volume 100.5 fL (83.0-100.0); Mean Platelet Volume 9.6 fL (9.4-12.4); Platelet Count 176 K/mcL (140-400); Red Blood Count 4.05 M/mcL (3.82-4.97); White Blood Count 5.5 K/mcL (4.3-11.1)
[2020-08-27 15:02] LABS: Calcium 9.3 mg/dL (8.6-10.3); Potassium 4.7 mEq/L (3.5-5.1)
[2020-08-27] MEDS ORDERED: 0.9 % Sodium Chloride 500 ML IVC ONE (15:28)
[2020-08-27] MEDS ORDERED: Naloxone 0.4 MG/ML INJ IVP PRN (17:18)
[2020-08-27] MEDS ORDERED: Ondansetron 4 MG/2 ML VIAL IVP PRN (17:18)
[2020-08-27] MEDS ORDERED: Acetaminophen 325 MG TABLET PO PRN (17:18)
[2020-08-27] MEDS ORDERED: *HR* Dextrose 50 % in Water (Vial) 50 ML VIAL IVP PRN (17:32)
[2020-08-27] MEDS ORDERED: Dextrose Gel 15 GM/37.5 ML TUBE PO PRN ×2 (17:32)
[2020-08-27] MEDS ORDERED: D5% in Water 1,000 ML IVC PRN (17:32)
[2020-08-27] MEDS: Insulin LISPRO 300 UNITS/3 ML VIAL SUBQ SCH (20:41)
[2020-08-27] MEDS: *HR* Heparin 5,000 UNIT/ML VIAL SQ SCH (20:48)
[2020-08-27] MEDS: Ipratropium/Albuterol Neb 3 ML IH SCH (22:34)
[2020-08-28] MEDS: Ipratropium/Albuterol Neb 3 ML IH SCH ×4 (04:02→23:23)
[2020-08-28] MEDS: *HR* Heparin 5,000 UNIT/ML VIAL SQ SCH ×3 (05:10→20:16)
[2020-08-28] MEDS: Piperacillin/Tazobactam 3.375 GM in 0.9 % Sodium Chloride Mini Bag 100 ML IVPB SCH ×2 (05:11→17:31)
[2020-08-28 06:34] LABS: Basophils % 0.5 %; Eosinophils # 0.1 K/mcL (0.0-0.6); Eosinophils % 2.3 %; Hemoglobin 12.7 g/dL (11.5-15.4); Immature Granulocytes % 0.5 % (0-4); Lymphocytes # 1.1 K/mcL (0.6-4.6); Lymphocytes % 24.8 %; Mean Corpuscular HGB Conc 33.4 g/dL (31.6-35.5); Mean Corpuscular Hemoglobin 33.6 pg (28.0-33.3); Mean Corpuscular Volume 100.5 fL (83.0-100.0); Mean Platelet Volume 9.6 fL (9.4-12.4); Monocytes # 0.4 K/mcL (0.0-1.3); Monocytes % 8.4 %; Neutrophils # 2.8 K/mcL (1.6-8.9); Platelet Count 148 K/mcL (140-400); Red Blood Count 3.78 M/mcL (3.82-4.97); Red Cell Distribution Width 15.7 % (11.5-14.5); Segmented Neutrophils % 63.5 %; White Blood Count 4.4 K/mcL (4.3-11.1)
[2020-08-28 07:45] LABS: Calcium 8.7 mg/dL (8.6-10.3); Phosphorous 5.5 mg/dL (2.7-4.5); Potassium 4.2 mEq/L (3.5-5.1)
[2020-08-28] MEDS ORDERED: 0.9 % Sodium Chloride 250 ML IVC PRN (08:02)
[2020-08-28] MEDS ORDERED: 0.9 % Sodium Chloride 1,000 ML PRIME SCH (08:15)
[2020-08-28] MEDS: Insulin LISPRO 300 UNITS/3 ML VIAL SUBQ SCH ×4 (08:44→20:17)
[2020-08-28] MEDS ORDERED: *HR* OxyCODONE/APAP 5/325 TABLET PO PRN (15:45)
[2020-08-28] MEDS ORDERED: Vancomycin 500 MG in 0.9 % Sodium Chloride Mini Bag 100 ML IVPB ONE (16:00)
[2020-08-28] MEDS: *HR* OxyCODONE/APAP 5/325 TABLET PO PRN ×2 (16:11→22:29)
[2020-08-28] MEDS ORDERED: Ergocalciferol (VIT D2) 50,000 UNIT (1.25MG) CAP PO SCH (19:15)
[2020-08-28] MEDS: levETIRAcetam 250 MG TABLET PO SCH (20:16)
[2020-08-28] MEDS: lamoTRIgine 100 MG TABLET PO SCH (20:16)
[2020-08-28] MEDS ORDERED: Melatonin 3 MG TABLET PO SCH (21:00)
[2020-08-28] MEDS: Budesonide/Formoterol 80/4.5 1 PUFF INH IH SCH (23:24)
[2020-08-29] MEDS: Ipratropium/Albuterol Neb 3 ML IH SCH ×3 (03:52→16:12)
[2020-08-29 04:23] VITALS: O2SAT 94
[2020-08-29] MEDS: *HR* OxyCODONE/APAP 5/325 TABLET PO PRN (04:34)
[2020-08-29] MEDS: Piperacillin/Tazobactam 3.375 GM in 0.9 % Sodium Chloride Mini Bag 100 ML IVPB SCH (04:34)
[2020-08-29] MEDS: *HR* Heparin 5,000 UNIT/ML VIAL SQ SCH ×2 (04:35→12:48)
[2020-08-29] MEDS: Insulin LISPRO 300 UNITS/3 ML VIAL SUBQ SCH ×2 (07:50→12:49)
[2020-08-29] MEDS: levETIRAcetam 250 MG TABLET PO SCH (07:51)
[2020-08-29] MEDS: lamoTRIgine 100 MG TABLET PO SCH (07:51)
[2020-08-29 08:25] LABS: Basophils % 0.4 %; Eosinophils # 0.1 K/mcL (0.0-0.6); Eosinophils % 1.5 %; Hematocrit 39.1 % (35.3-44.9); Hemoglobin 13.2 g/dL (11.5-15.4); Immature Granulocytes % 0.2 % (0-4); Lymphocytes # 1.5 K/mcL (0.6-4.6); Lymphocytes % 28.9 %; Mean Corpuscular HGB Conc 33.8 g/dL (31.6-35.5); Mean Corpuscular Hemoglobin 33.8 pg (28.0-33.3); Mean Platelet Volume 9.3 fL (9.4-12.4); Monocytes # 0.4 K/mcL (0.0-1.3); Monocytes % 8.3 %; Neutrophils # 3.2 K/mcL (1.6-8.9); Platelet Count 160 K/mcL (140-400); Red Blood Count 3.91 M/mcL (3.82-4.97); Red Cell Distribution Width 15.9 % (11.5-14.5); Segmented Neutrophils % 60.7 %; White Blood Count 5.2 K/mcL (4.3-11.1)
[2020-08-29 08:45] LABS: Calcium 9.6 mg/dL (8.6-10.3); Potassium 4.2 mEq/L (3.5-5.1)
[2020-08-29] MEDS ORDERED: DEXTROAMPHETAMINE PO SCH (09:00)
[2020-08-29] MEDS ORDERED: AMPHETAMINE PO SCH (09:00)
[2020-08-29] MEDS ORDERED: Aspirin Enteric Coated 81 MG Tablet PO SCH (09:00)
[2020-08-29] MEDS: Budesonide/Formoterol 80/4.5 1 PUFF INH IH SCH (10:31)
[2020-08-29 12:04] VITALS: BP 136/72; PULSE 81; TEMP 97.6
== END 2020-08-29 17:46 | disposition home or self-care (01) ==
LOC: 2ANU 12:02 → EMEROOARM 12:02 → 2ANU 18:38
PROVIDERS: ADMIT Pharmacist; ATTEND Pharmacist

== ENCOUNTER 2020-10-10 01:32 | Observation (INO) ==
[2020-10-10 03:14] LABS: Basophils % 0.2 %; Eosinophils # 0.1 K/mcL (0.0-0.6); Eosinophils % 2.3 %; Hematocrit 33.8 % (35.3-44.9); Hemoglobin 11.2 g/dL (11.5-15.4); Immature Granulocytes % 0.2 % (0-4); Lymphocytes # 1.8 K/mcL (0.6-4.6); Lymphocytes % 35.1 %; Mean Corpuscular HGB Conc 33.1 g/dL (31.6-35.5); Mean Corpuscular Hemoglobin 32.9 pg (28.0-33.3); Mean Corpuscular Volume 99.4 fL (83.0-100.0); Mean Platelet Volume 9.3 fL (9.4-12.4); Monocytes # 0.5 K/mcL (0.0-1.3); Monocytes % 8.8 %; Neutrophils # 2.8 K/mcL (1.6-8.9); Platelet Count 168 K/mcL (140-400); Red Cell Distribution Width 12.6 % (11.5-14.5); Segmented Neutrophils % 53.4 %; White Blood Count 5.2 K/mcL (4.3-11.1)
[2020-10-10] MEDS: *HR* Labetalol 20 MG/4 ML SYRINGE IVP PRN ×4 (03:17→04:53)
[2020-10-10 03:23] LABS: INR 1.2; Prothrombin Time 14.3 Seconds (9.4-12.1)
[2020-10-10 03:26] LABS: Activated Partial Thrombo Time 31.3 Seconds (26.0-36.0)
[2020-10-10 03:55] LABS: Calcium 9.4 mg/dL (8.6-10.3); Potassium 3.9 mEq/L (3.5-5.1); Troponin I 0.04 ng/mL (< 0.04)
[2020-10-10] MEDS ORDERED: Naloxone 0.4 MG/ML INJ IVP PRN (06:02)
[2020-10-10] MEDS ORDERED: Acetaminophen 325 MG TABLET PO PRN (06:02)
[2020-10-10] MEDS ORDERED: *HR* Dextrose 50 % in Water (Vial) 50 ML VIAL IVP PRN (06:56)
[2020-10-10] MEDS ORDERED: D5% in Water 1,000 ML IVC PRN (06:56)
[2020-10-10] MEDS ORDERED: Dextrose Gel 15 GM/37.5 ML TUBE PO PRN ×2 (06:56)
[2020-10-10 07:11] LABS: % Iron Saturation 26 % (15-50); Iron 48 mcg/dL (50-170); Transferrin 134 mg/dL (203-362)
[2020-10-10 07:29] LABS: Ferritin 717 ng/mL (10-120)
[2020-10-10 07:34] LABS: Folate 11.8 ng/mL (3.0-16.0)
[2020-10-10] MEDS ORDERED: Famotidine 20 MG TABLET PO SCH ×2 (09:00→21:00)
[2020-10-10] MEDS ORDERED: Perflutren Lipid Microsphere 1.3 ML in 0.9 % Sodium Chloride 8.7 ML IVP PRN (10:36)
[2020-10-10 11:02] LABS: Estimated Average Glucose 126 mg/dl
[2020-10-10] MEDS: Insulin LISPRO 300 UNITS/3 ML VIAL SUBQ SCH ×2 (12:27→21:14)
[2020-10-10] MEDS: carvediloL 6.25 MG TABLET PO SCH ×2 (15:23→16:59)
[2020-10-10] MEDS: *HR* Heparin 5,000 UNIT/ML VIAL SQ SCH ×2 (16:58→21:10)
[2020-10-10] MEDS: Calcium Acetate 667 MG CAPSULE PO SCH (16:59)
[2020-10-10] MEDS: Aspirin Enteric Coated 81 MG Tablet PO SCH (17:03)
[2020-10-10] MEDS: Budesonide/Formoterol 80/4.5 1 PUFF INH IH SCH (20:02)
[2020-10-10] MEDS ORDERED: Melatonin 3 MG TABLET PO SCH (21:00)
[2020-10-10] MEDS ORDERED: Gabapentin 300 MG CAPSULE PO SCH (21:00)
[2020-10-10] MEDS: lamoTRIgine 100 MG TABLET PO SCH (21:10)
[2020-10-10] MEDS: levETIRAcetam 250 MG TABLET PO SCH (21:10)
[2020-10-10] MEDS: Topiramate 25 MG TABLET PO SCH (21:10)
[2020-10-11 01:09] LABS: Mean Corpuscular HGB Conc 33.3 g/dL (31.6-35.5); Mean Corpuscular Hemoglobin 32.6 pg (28.0-33.3); Mean Corpuscular Volume 97.9 fL (83.0-100.0); Mean Platelet Volume 9.9 fL (9.4-12.4); Platelet Count 174 K/mcL (140-400); Red Blood Count 3.37 M/mcL (3.82-4.97); Red Cell Distribution Width 12.6 % (11.5-14.5); White Blood Count 4.8 K/mcL (4.3-11.1)
[2020-10-11 01:36] LABS: Calcium 9.7 mg/dL (8.6-10.3); Chol/HDL Ratio 4.8 (0-4.9); Potassium 4.2 mEq/L (3.5-5.1)
[2020-10-11] MEDS: Insulin LISPRO 300 UNITS/3 ML VIAL SUBQ SCH ×5 (01:36→17:03)
[2020-10-11] MEDS: *HR* Heparin 5,000 UNIT/ML VIAL SQ SCH ×2 (05:00→16:46)
[2020-10-11 06:35] VITALS: O2SAT 94
[2020-10-11] MEDS: levETIRAcetam 250 MG TABLET PO SCH (07:45)
[2020-10-11] MEDS: lamoTRIgine 100 MG TABLET PO SCH (07:45)
[2020-10-11] MEDS: Topiramate 25 MG TABLET PO SCH (07:46)
[2020-10-11] MEDS: Calcium Acetate 667 MG CAPSULE PO SCH ×3 (07:46→17:02)
[2020-10-11] MEDS: Aspirin Enteric Coated 81 MG Tablet PO SCH (07:46)
[2020-10-11] MEDS: carvediloL 6.25 MG TABLET PO SCH ×2 (07:47→17:02)
[2020-10-11] MEDS ORDERED: 0.9 % Sodium Chloride 250 ML IVC PRN (07:51)
[2020-10-11] MEDS ORDERED: 0.9 % Sodium Chloride 1,000 ML PRIME SCH (08:00)
[2020-10-11] MEDS: Budesonide/Formoterol 80/4.5 1 PUFF INH IH SCH (08:03)
[2020-10-11] MEDS ORDERED: Ipratropium/Albuterol Neb 3 ML IH SCH (08:33)
[2020-10-11] MEDS ORDERED: Multivit/Ca/Min/Fe/FA 1 TAB TABLET PO SCH (09:00)
[2020-10-11] MEDS ORDERED: AMPHETAMINE PO SCH (09:00)
[2020-10-11] MEDS ORDERED: Loratadine 10 MG TABLET PO SCH (09:00)
[2020-10-11] MEDS ORDERED: Fluticasone Propionate Nasal 50 MCG/SPRAY BOTTLE NS SCH (09:00)
[2020-10-11] MEDS ORDERED: DEXTROAMPHETAMINE PO SCH (09:00)
[2020-10-11] MEDS ORDERED: Magnesium Oxide 400 MG TABLET PO SCH (09:00)
[2020-10-11] MEDS ORDERED: Ipratropium/Albuterol Neb 3 ML IH PRN (11:07)
[2020-10-11 16:51] VITALS: BP 186/92; PULSE 73; TEMP 98.2
== END 2020-10-11 17:17 | disposition home or self-care (01) ==
LOC: EMEROOARM 01:32 → 2ANU 01:32 → SUATTDRO 04:58 → 2ANU 09:16
PROVIDERS: ADMIT Student in an Organized Health Care Education/Training Program; ATTEND Family Medicine

== ENCOUNTER 2021-01-12 02:13 | Inpatient (IN) ==
[2021-01-12] MEDS ORDERED: Ipratropium/Albuterol Neb 3 ML IH ONE ×2 (02:47→05:54)
[2021-01-12 03:05] LABS: Basophils % 0.2 %; Hematocrit 32.1 % (35.3-44.9); Hemoglobin 10.4 g/dL (11.5-15.4); Immature Granulocytes % 0.5 % (0-4); Lymphocytes # 0.7 K/mcL (0.6-4.6); Lymphocytes % 16.1 %; Mean Corpuscular HGB Conc 32.4 g/dL (31.6-35.5); Mean Corpuscular Hemoglobin 33.5 pg (28.0-33.3); Mean Corpuscular Volume 103.5 fL (83.0-100.0); Mean Platelet Volume 9.8 fL (9.4-12.4); Monocytes # 0.5 K/mcL (0.0-1.3); Monocytes % 12.2 %; Neutrophils # 2.9 K/mcL (1.6-8.9); Platelet Count 125 K/mcL (140-400); Red Cell Distribution Width 14.6 % (11.5-14.5); White Blood Count 4.1 K/mcL (4.3-11.1)
[2021-01-12 03:14] LABS: Calcium 8.8 mg/dL (8.6-10.3)
[2021-01-12 03:23] LABS: Troponin I 0.07 ng/mL (< 0.04)
[2021-01-12] MEDS ORDERED: Calcium Gluconate 1gm/50mL 1 GM/50 ML BAG IVPB ONE (03:51)
[2021-01-12] MEDS ORDERED: Isovue-370 500 ML BOTTLE IVP ONE (03:51)
[2021-01-12] MEDS ORDERED: Insulin Human Regular 5 UNIT in 0.9 % Sodium Chloride 10 ML IV ONE (03:52)
[2021-01-12] MEDS ORDERED: *HR* Dextrose 50 % in Water (Syg) 50 ML SYRINGE IVP ONE (03:52)
[2021-01-12] MEDS ORDERED: Azithromycin 500 MG in 0.9 % Sodium Chloride 250 ML IVPB ONE (05:55)
[2021-01-12] MEDS ORDERED: cefTRIAXone 1,000 MG in 0.9 % Sodium Chloride Mini Bag 100 ML IVPB ONE (05:55)
[2021-01-12] MEDS ORDERED: Melatonin 3 MG TABLET PO PRN (06:00)
[2021-01-12] MEDS ORDERED: Ondansetron 4 MG/2 ML VIAL IVP PRN (06:00)
[2021-01-12] MEDS ORDERED: Naloxone 0.4 MG/ML INJ IVP PRN (06:00)
[2021-01-12] MEDS ORDERED: D5% in Water 1,000 ML IVC PRN (06:08)
[2021-01-12] MEDS ORDERED: Dextrose Gel 15 GM/37.5 ML TUBE PO PRN ×2 (06:08)
[2021-01-12] MEDS ORDERED: *HR* Dextrose 50 % in Water (Syg) 50 ML SYRINGE IVP PRN (06:08)
[2021-01-12] MEDS ORDERED: 0.9 % Sodium Chloride 250 ML IVC PRN (07:48)
[2021-01-12] MEDS ORDERED: 0.9 % Sodium Chloride 1,000 ML PRIME SCH (08:00)
[2021-01-12 08:49] LABS: Albumin 3.8 g/dL (3.5-5.7); Albumin/Globulin Ratio 1.2 (1.1-2.2); Bilirubin,Direct 0.2 mg/dL (0.0-0.2); Bilirubin,Indirect 0.3 mg/dL (0.0-1.0); Bilirubin,Total 0.5 mg/dL (0.3-1.0); Globulin 3.3 g/dL (2.4-3.5); Total Protein 7.1 g/dL (6.4-8.9)
[2021-01-12] MEDS: Aspirin Enteric Coated 81 MG Tablet PO SCH (10:10)
[2021-01-12] MEDS: Insulin LISPRO 300 UNITS/3 ML VIAL SUBQ SCH ×4 (10:10→20:56)
[2021-01-12] MEDS: Azithromycin 500 MG in 0.9 % Sodium Chloride 250 ML IVPB SCH (10:10)
[2021-01-12] MEDS: Dexamethasone Sodium Phos/PF 10 MG/ML VIAL IVP SCH (10:10)
[2021-01-12] MEDS ORDERED: *HR* Heparin 5,000 UNIT/ML VIAL SQ SCH (14:00)
[2021-01-12] MEDS: levETIRAcetam 250 MG TABLET PO SCH ×2 (14:30→20:41)
[2021-01-12] MEDS: lamoTRIgine 100 MG TABLET PO SCH ×2 (14:30→20:41)
[2021-01-12] MEDS ORDERED: *HR* Heparin 5,000 UNIT/ML VIAL IVP PRN ×2 (17:32)
[2021-01-12] MEDS ORDERED: *HR* Heparin 5,000 UNIT/ML VIAL IVP ONE (17:32)
[2021-01-12 18:06] LABS: Hematocrit 32.8 % (35.3-44.9); Hemoglobin 10.9 g/dL (11.5-15.4); Mean Corpuscular HGB Conc 33.2 g/dL (31.6-35.5); Mean Corpuscular Hemoglobin 33.5 pg (28.0-33.3); Mean Corpuscular Volume 100.9 fL (83.0-100.0); Mean Platelet Volume 9.8 fL (9.4-12.4); Platelet Count 118 K/mcL (140-400); Red Blood Count 3.25 M/mcL (3.82-4.97); Red Cell Distribution Width 14.6 % (11.5-14.5)
[2021-01-12 18:23] LABS: INR 1.2
[2021-01-12 18:47] LABS: Heparin anti-factor XA UFH 0.06 IU/mL (0.30-0.70)
[2021-01-12] MEDS ORDERED: *HR* LORazepam 0.5 MG TABLET PO PRN (20:46)
[2021-01-12] MEDS ORDERED: Insulin DETEMIR 100 UNIT/ML X5UNITS SUBQ SCH (21:00)
[2021-01-12] MEDS: Acetaminophen 325 MG TABLET PO PRN (21:40)
[2021-01-12] MEDS: Heparin 25,000 UNIT/250 ML 25,000 UNIT/250 ML IV.SOLN IVC SCH (21:45)
[2021-01-13 05:32] LABS: Hematocrit 31.3 % (35.3-44.9); Hemoglobin 10.2 g/dL (11.5-15.4); Mean Corpuscular HGB Conc 32.6 g/dL (31.6-35.5); Mean Corpuscular Hemoglobin 33.7 pg (28.0-33.3); Mean Corpuscular Volume 103.3 fL (83.0-100.0); Mean Platelet Volume 9.8 fL (9.4-12.4); Platelet Count 110 K/mcL (140-400); Red Blood Count 3.03 M/mcL (3.82-4.97); Red Cell Distribution Width 14.6 % (11.5-14.5); White Blood Count 3.8 K/mcL (4.3-11.1)
[2021-01-13 05:43] LABS: Estimated Average Glucose 117 mg/dl; Hemoglobin A1C 5.7 %
[2021-01-13 05:47] LABS: INR 1.2; Prothrombin Time 13.7 Seconds (9.4-12.1)
[2021-01-13 06:02] LABS: Calcium 8.8 mg/dL (8.6-10.3); Magnesium 1.8 mg/dL (1.6-2.6); Potassium 4.2 mEq/L (3.5-5.1)
[2021-01-13] MEDS ORDERED: Benzonatate 100 MG CAPSULE PO PRN (08:11)
[2021-01-13] MEDS: *HR* HYDROcodone/Acet 5/325 mg TABLET PO PRN (08:50)
[2021-01-13] MEDS: Acetaminophen 325 MG TABLET PO PRN (08:51)
[2021-01-13] MEDS: levETIRAcetam 250 MG TABLET PO SCH ×2 (08:51→20:53)
[2021-01-13] MEDS: lamoTRIgine 100 MG TABLET PO SCH ×2 (08:51→20:52)
[2021-01-13] MEDS: cefTRIAXone 1,000 MG in Water for inj. (sterile) 10 ML IVP SCH (08:52)
[2021-01-13] MEDS: Dexamethasone Sodium Phos/PF 10 MG/ML VIAL IVP SCH (08:53)
[2021-01-13] MEDS: Insulin LISPRO 300 UNITS/3 ML VIAL SUBQ SCH ×4 (08:54→20:53)
[2021-01-13] MEDS: Aspirin Enteric Coated 81 MG Tablet PO SCH (08:57)
[2021-01-13] MEDS: Azithromycin 500 MG in 0.9 % Sodium Chloride 250 ML IVPB SCH (09:12)
[2021-01-13] MEDS: TOPIRAMATE 50 MG PO SCH (09:13)
[2021-01-13] MEDS: GuaiFENesin/Dextromethorphan TABLET PO SCH ×2 (09:56→20:52)
[2021-01-13] MEDS ORDERED: carvediloL 6.25 MG TABLET PO ONE (10:00)
[2021-01-13] MEDS ORDERED: amLODIPine 5 MG TABLET PO SCH (10:15)
[2021-01-13] MEDS: Budesonide/Formoterol 160/4.5 1 PUFF INH IH SCH ×2 (11:38→20:23)
[2021-01-13] MEDS: carvediloL 6.25 MG TABLET PO SCH (17:37)
[2021-01-14] MEDS: Heparin 25,000 UNIT/250 ML 25,000 UNIT/250 ML IV.SOLN IVC SCH (02:01)
[2021-01-14 06:47] LABS: Hemoglobin 10.9 g/dL (11.5-15.4); Mean Corpuscular Hemoglobin 34.4 pg (28.0-33.3); Mean Corpuscular Volume 104.1 fL (83.0-100.0); Mean Platelet Volume 10.7 fL (9.4-12.4); Platelet Count 111 K/mcL (140-400); Red Blood Count 3.17 M/mcL (3.82-4.97); Red Cell Distribution Width 14.3 % (11.5-14.5); White Blood Count 5.4 K/mcL (4.3-11.1)
[2021-01-14 07:03] LABS: Calcium 8.9 mg/dL (8.6-10.3); Potassium 4.9 mEq/L (3.5-5.1)
[2021-01-14] MEDS: Insulin LISPRO 300 UNITS/3 ML VIAL SUBQ SCH ×4 (08:15→20:55)
[2021-01-14] MEDS ORDERED: 0.9 % Sodium Chloride 250 ML IVC PRN (08:28)
[2021-01-14] MEDS: *HR* HYDROcodone/Acet 5/325 mg TABLET PO PRN ×2 (09:16→15:52)
[2021-01-14] MEDS: Budesonide/Formoterol 160/4.5 1 PUFF INH IH SCH ×2 (10:57→20:51)
[2021-01-14] MEDS ORDERED: Ipratropium 1 PUFF INHALER IH ONE (10:57)
[2021-01-14] MEDS: Ipratropium 1 PUFF INHALER IH SCH ×3 (11:13→20:50)
[2021-01-14 11:37] LABS: Heparin anti-factor XA UFH 0.47 IU/mL (0.30-0.70)
[2021-01-14] MEDS ORDERED: Ipratropium/Albuterol Neb 3 ML IH SCH (12:00)
[2021-01-14] MEDS: carvediloL 6.25 MG TABLET PO SCH ×2 (15:52→16:26)
[2021-01-14] MEDS: levETIRAcetam 250 MG TABLET PO SCH ×2 (15:52→20:49)
[2021-01-14] MEDS: Azithromycin 250 MG TABLET PO SCH (15:52)
[2021-01-14] MEDS: Aspirin Enteric Coated 81 MG Tablet PO SCH (15:52)
[2021-01-14] MEDS: GuaiFENesin/Dextromethorphan TABLET PO SCH ×2 (15:52→20:49)
[2021-01-14] MEDS: lamoTRIgine 100 MG TABLET PO SCH ×2 (15:53→20:49)
[2021-01-14] MEDS: TOPIRAMATE 50 MG PO SCH (15:53)
[2021-01-14] MEDS: cefTRIAXone 1,000 MG in Water for inj. (sterile) 10 ML IVP SCH (15:53)
[2021-01-14] MEDS: Dexamethasone Sodium Phos/PF 10 MG/ML VIAL IVP SCH (15:53)
[2021-01-15] MEDS: Ipratropium 1 PUFF INHALER IH SCH ×6 (00:12→20:00)
[2021-01-15] MEDS ORDERED: Piperacillin/Tazobactam 3.375 GM in 0.9 % Sodium Chloride Mini Bag 100 ML IVPB SCH ×2 (06:00)
[2021-01-15 06:32] LABS: Hemoglobin 9.7 g/dL (11.5-15.4); Mean Corpuscular HGB Conc 32.3 g/dL (31.6-35.5); Mean Corpuscular Hemoglobin 32.9 pg (28.0-33.3); Mean Corpuscular Volume 101.7 fL (83.0-100.0); Mean Platelet Volume 10.8 fL (9.4-12.4); Platelet Count 109 K/mcL (140-400); Red Blood Count 2.95 M/mcL (3.82-4.97); Red Cell Distribution Width 14.3 % (11.5-14.5); White Blood Count 3.1 K/mcL (4.3-11.1)
[2021-01-15 06:38] LABS: Calcium 8.8 mg/dL (8.6-10.3); Potassium 4.5 mEq/L (3.5-5.1)
[2021-01-15] MEDS: Budesonide/Formoterol 160/4.5 1 PUFF INH IH SCH ×2 (08:11→20:00)
[2021-01-15] MEDS ORDERED: amLODIPine 5 MG TABLET PO SCH (09:00)
[2021-01-15] MEDS: Insulin LISPRO 300 UNITS/3 ML VIAL SUBQ SCH ×3 (09:37→16:27)
[2021-01-15] MEDS: levETIRAcetam 250 MG TABLET PO SCH (09:39)
[2021-01-15] MEDS: Aspirin Enteric Coated 81 MG Tablet PO SCH (09:39)
[2021-01-15] MEDS: carvediloL 6.25 MG TABLET PO SCH ×2 (09:39→16:28)
[2021-01-15] MEDS: Azithromycin 250 MG TABLET PO SCH (09:40)
[2021-01-15] MEDS: GuaiFENesin/Dextromethorphan TABLET PO SCH (09:40)
[2021-01-15] MEDS: lamoTRIgine 100 MG TABLET PO SCH (09:40)
[2021-01-15] MEDS: TOPIRAMATE 50 MG PO SCH (09:41)
[2021-01-15] MEDS: Dexamethasone Sodium Phos/PF 10 MG/ML VIAL IVP SCH (09:47)
[2021-01-15] MEDS ORDERED: Fluticasone Propionate Nasal 50 MCG/SPRAY BOTTLE NS SCH (12:30)
[2021-01-15 15:41] VITALS: BP 162/63; PULSE 70; TEMP 97.8; O2SAT 98
[2021-01-16] MEDS ORDERED: Loratadine 10 MG TABLET PO SCH (09:00)
== END 2021-01-15 19:30 | disposition home health service (06) | DRG 177 ==
LOC: EMEROOARM 02:13 → 2NENU 02:13 → SUATTDRO 06:23 → 2NENU 06:55 → SUATTDRO 12:20
PROVIDERS: ADMIT Internal Medicine; ATTEND Student in an Organized Health Care Education/Training Program

== ENCOUNTER 2021-01-16 12:24 | Observation (INO) ==
[2021-01-16] MEDS ORDERED: Ipratropium/Albuterol Neb 3 ML IH ONE (12:43)
[2021-01-16 12:57] LABS: Hematocrit 31.9 % (35.3-44.9); Hemoglobin 10.8 g/dL (11.5-15.4); Immature Granulocytes % 0.9 % (0-4); Lymphocytes # 0.8 K/mcL (0.6-4.6); Lymphocytes % 13.1 %; Mean Corpuscular HGB Conc 33.9 g/dL (31.6-35.5); Mean Corpuscular Hemoglobin 34.2 pg (28.0-33.3); Mean Corpuscular Volume 100.9 fL (83.0-100.0); Mean Platelet Volume 10.7 fL (9.4-12.4); Monocytes # 0.3 K/mcL (0.0-1.3); Monocytes % 5.3 %; Neutrophils # 4.7 K/mcL (1.6-8.9); Platelet Count 158 K/mcL (140-400); Red Blood Count 3.16 M/mcL (3.82-4.97); Red Cell Distribution Width 14.2 % (11.5-14.5); Segmented Neutrophils % 80.7 %
[2021-01-16 12:58] LABS: White Blood Count 5.8 K/mcL (4.3-11.1)
[2021-01-16] MEDS ORDERED: Isovue-370 500 ML BOTTLE IVP ONE (13:14)
[2021-01-16 13:16] LABS: Troponin I 0.13 ng/mL (< 0.04)
[2021-01-16 13:40] LABS: BUN/Creatinine Ratio 8 (6-26); Blood Urea Nitrogen 42 mg/dL (6-20); Calcium 8.7 mg/dL (8.6-10.3); Carbon Dioxide 29 mEq/L (23-29); Chloride 94 mEq/L (98-107); Glucose 163 mg/dL (70-105); Osmolality,Calculated 294 (280-300); Potassium 3.5 mEq/L (3.5-5.1); Sodium 135 mEq/L (136-145); eGFR For African Americans 11 (> 60); eGFR For Non-African Americans 9 (> 60)
[2021-01-16] MEDS ORDERED: levoFLOXacin 750 MG/150 ML 750 MG/150 ML BAG IVPB ONE (14:44)
[2021-01-16] MEDS ORDERED: Ondansetron ODT 4 MG TAB.RAPDIS SL PRN (15:47)
[2021-01-16] MEDS ORDERED: Naloxone 0.4 MG/ML INJ IVP PRN (15:47)
[2021-01-16] MEDS ORDERED: Acetaminophen 325 MG TABLET PO PRN (15:47)
[2021-01-16] MEDS ORDERED: D5% in Water 1,000 ML IVC PRN (15:54)
[2021-01-16] MEDS ORDERED: *HR* Dextrose 50 % in Water (Syg) 50 ML SYRINGE IVP PRN (15:54)
[2021-01-16] MEDS ORDERED: Dextrose Gel 15 GM/37.5 ML TUBE PO PRN ×2 (15:54)
[2021-01-16 16:44] LABS: Ferritin > 1500 ng/mL (10-120)
[2021-01-16] MEDS: Ipratropium 1 PUFF INHALER IH SCH ×3 (17:47→23:43)
[2021-01-16] MEDS: Insulin LISPRO 300 UNITS/3 ML VIAL SUBQ SCH (19:16)
[2021-01-16] MEDS ORDERED: Insulin DETEMIR 100 UNIT/ML X5UNITS SUBQ SCH (21:00)
[2021-01-16] MEDS ORDERED: Insulin LISPRO 300 UNITS/3 ML VIAL SUBQ SCH (22:15)
[2021-01-16] MEDS ORDERED: Melatonin 3 MG TABLET PO PRN (22:40)
[2021-01-17] MEDS: Ipratropium 1 PUFF INHALER IH SCH ×5 (03:51→19:48)
[2021-01-17 05:15] LABS: Hemoglobin 9.3 g/dL (11.5-15.4); Immature Granulocytes % 1.4 % (0-4); Lymphocytes # 0.3 K/mcL (0.6-4.6); Lymphocytes % 9.6 %; Mean Corpuscular HGB Conc 33.2 g/dL (31.6-35.5); Mean Corpuscular Hemoglobin 33.5 pg (28.0-33.3); Mean Corpuscular Volume 100.7 fL (83.0-100.0); Mean Platelet Volume 10.3 fL (9.4-12.4); Monocytes # 0.2 K/mcL (0.0-1.3); Monocytes % 7.8 %; Neutrophils # 2.3 K/mcL (1.6-8.9); Platelet Count 145 K/mcL (140-400); Red Blood Count 2.78 M/mcL (3.82-4.97); Red Cell Distribution Width 13.7 % (11.5-14.5); Segmented Neutrophils % 81.2 %
[2021-01-17 05:44] LABS: Alanine Aminotransferase 11 Units/L (7-52); Albumin 3.3 g/dL (3.5-5.7); Alkaline Phosphatase 79 Units/L (34-104); Aspartate Amino Transferase 21 Units/L (13-39); BUN/Creatinine Ratio 8 (6-26); Bilirubin,Total 0.4 mg/dL (0.3-1.0); Blood Urea Nitrogen 55 mg/dL (6-20); C-Reactive Protein 106 mg/L (Less than 10); Calcium 8.6 mg/dL (8.6-10.3); Carbon Dioxide 25 mEq/L (23-29); Chloride 94 mEq/L (98-107); Globulin 3.3 g/dL (2.4-3.5); Glucose 200 mg/dL (70-105); Osmolality,Calculated 295 (280-300); Potassium 4.9 mEq/L (3.5-5.1); Sodium 132 mEq/L (136-145); Total Protein 6.6 g/dL (6.4-8.9); eGFR For African Americans 8 (> 60); eGFR For Non-African Americans 7 (> 60)
[2021-01-17 05:47] LABS: Ferritin > 1500 ng/mL (10-120)
[2021-01-17] MEDS: *HR* Heparin 5,000 UNIT/ML VIAL SQ SCH ×2 (05:55→17:36)
[2021-01-17 05:56] LABS: White Blood Count 2.8 K/mcL (4.3-11.1)
[2021-01-17] MEDS: Insulin LISPRO 300 UNITS/3 ML VIAL SUBQ SCH ×3 (07:39→17:46)
[2021-01-17] MEDS ORDERED: 0.9 % Sodium Chloride 250 ML IVC PRN (07:56)
[2021-01-17] MEDS ORDERED: 0.9 % Sodium Chloride 1,000 ML PRIME SCH (08:00)
[2021-01-17] MEDS ORDERED: Dexamethasone Sodium Phos/PF 10 MG/ML VIAL IVP SCH (09:00)
[2021-01-17] MEDS ORDERED: Gabapentin 300 MG CAPSULE PO SCH (15:00)
[2021-01-17] MEDS ORDERED: carvediloL 6.25 MG TABLET PO SCH (17:00)
[2021-01-17 17:14] VITALS: BP 154/67; PULSE 78; TEMP 97.8
[2021-01-17 18:02] VITALS: O2SAT 94
[2021-01-17] MEDS ORDERED: Amoxicillin/Clavulanate 500 MG TABLET PO SCH (21:00)
[2021-01-17] MEDS ORDERED: Topiramate 25 MG TABLET PO SCH (21:00)
[2021-01-17] MEDS ORDERED: levETIRAcetam 250 MG TABLET PO SCH (21:00)
[2021-01-17] MEDS ORDERED: lamoTRIgine 100 MG TABLET PO SCH (21:00)
[2021-01-17] MEDS ORDERED: Budesonide/Formoterol 80/4.5 1 PUFF INH IH SCH (21:00)
[2021-01-17] MEDS ORDERED: Doxycycline 100 MG CAPSULE PO SCH (21:00)
[2021-01-18] MEDS ORDERED: AMPHETAMINE PO SCH (09:00)
[2021-01-18] MEDS ORDERED: [UNRECOGNIZED DRUG - OTHER] PO SCH (09:00)
[2021-01-18] MEDS ORDERED: Lactobacillus 1 EACH CAP.SPRINK PO SCH (09:00)
[2021-01-18] MEDS ORDERED: Loratadine 10 MG TABLET PO SCH (09:00)
[2021-01-18] MEDS ORDERED: Magnesium Oxide 400 MG TABLET PO SCH (09:00)
[2021-01-18] MEDS ORDERED: Fluticasone Propionate Nasal 50 MCG/SPRAY BOTTLE NS SCH (09:00)
[2021-01-18] MEDS ORDERED: amLODIPine 5 MG TABLET PO SCH (09:00)
[2021-01-18] MEDS ORDERED: DEXTROAMPHETAMINE PO SCH (09:00)
[2021-01-18] MEDS ORDERED: Aspirin Enteric Coated 81 MG Tablet PO SCH (09:00)
== END 2021-01-17 19:40 | disposition home health service (06) ==
LOC: SUATTDRO → 2NENU 12:24 → EMEROOARM 12:24 → 2NENU 18:32
PROVIDERS: ADMIT Pharmacist; ATTEND Pharmacist

== ENCOUNTER 2021-02-06 13:00 | Inpatient (IN) ==
[2021-02-06] MEDS ORDERED: Ipratropium/Albuterol Neb 3 ML IH ONE (13:40)
[2021-02-06] MEDS ORDERED: methylPREDNISolone 125 MG/2 ML VIAL IVP ONE (13:41)
[2021-02-06 14:14] LABS: ABG Base Excess 3 mEq/L (-2 to 3); ABG HCO3 28 mEq/L (21-27); ABG Oxygen Saturation 93 % (95-98); ABG PCO2 46 mmHg (35-45); ABG PH 7.39 pH Units (7.32-7.45); ABG PO2 66 mmHg (85-104); ABG TCO2 30 mEq/L (20-26)
[2021-02-06 14:22] LABS: Basophils % 0.2 %; Eosinophils # 0.2 K/mcL (0.0-0.6); Eosinophils % 3.7 %; Hematocrit 29.9 % (35.3-44.9); Hemoglobin 9.7 g/dL (11.5-15.4); Immature Granulocytes % 1.6 % (0-4); Lymphocytes # 1.6 K/mcL (0.6-4.6); Lymphocytes % 37.8 %; Mean Corpuscular HGB Conc 32.4 g/dL (31.6-35.5); Mean Corpuscular Volume 104.9 fL (83.0-100.0); Monocytes # 0.4 K/mcL (0.0-1.3); Monocytes % 8.5 %; Neutrophils # 2.1 K/mcL (1.6-8.9); Platelet Count 207 K/mcL (140-400); Red Blood Count 2.85 M/mcL (3.82-4.97); Segmented Neutrophils % 48.2 %; White Blood Count 4.3 K/mcL (4.3-11.1)
[2021-02-06 14:30] LABS: INR 1.2
[2021-02-06] MEDS ORDERED: Isovue-370 500 ML BOTTLE IVP ONE (14:38)
[2021-02-06 14:43] LABS: Bilirubin,Direct 0.1 mg/dL (0.0-0.2); Bilirubin,Indirect 0.6 mg/dL (0.0-1.0); Bilirubin,Total 0.7 mg/dL (0.3-1.0); Calcium 8.9 mg/dL (8.6-10.3); Globulin 4.2 g/dL (2.4-3.5); Magnesium 1.6 mg/dL (1.6-2.6); Potassium 3.4 mEq/L (3.5-5.1); Total Protein 8.2 g/dL (6.4-8.9); Troponin I 0.03 ng/mL (< 0.04)
[2021-02-06 15:04] LABS: Adenovirus Not Detected (Not Detect); Bordetella Pertussis Not Detected (Not Detect); Chlamydophila pneumoniae Not Detected (Not Detect); Coronavirus 229E Not Detected (Not Detect); Coronavirus HKU1 Not Detected (Not Detect); Coronavirus NL63 Not Detected (Not Detect); Coronavirus OC43 DETECTED (Not Detect); Human Metapneumovirus Not Detected (Not Detect); Human Rhinovirus/Enterovirus Not Detected (Not Detect); Influenza A Subtype 2009 H1 Not Detected (Not Detect); Influenza B Not Detected (Not Detect); Mycoplasma pneumoniae Not Detected (Not Detect); Parainfluenza Virus 1 Not Detected (Not Detect); Parainfluenza Virus 2 Not Detected (Not Detect); Parainfluenza Virus 3 Not Detected (Not Detect); Parainfluenza Virus 4 Not Detected (Not Detect); Respiratory Syncytial Virus Not Detected (Not Detect)
[2021-02-06 15:05] LABS: SARS-CoV-2 DETECTED (Not Detect)
[2021-02-06] MEDS ORDERED: Naloxone 0.4 MG/ML INJ IVP PRN (17:11)
[2021-02-06] MEDS ORDERED: Ondansetron 4 MG/2 ML VIAL IVP PRN (17:11)
[2021-02-06] MEDS ORDERED: Dextrose Gel 15 GM/37.5 ML TUBE PO PRN ×2 (17:17)
[2021-02-06] MEDS ORDERED: D5% in Water 1,000 ML IVC PRN (17:17)
[2021-02-06] MEDS: Piperacillin/Tazobactam 3.375 GM in 0.9 % Sodium Chloride Mini Bag 100 ML IVPB SCH (19:52)
[2021-02-06] MEDS ORDERED: Vancomycin 1,250 MG/262.5 ML IV.SOLN IVPB ONE (20:00)
[2021-02-06] MEDS: Budesonide/Formoterol 80/4.5 1 PUFF INH IH SCH ×2 (20:18→20:22)
[2021-02-06] MEDS: Topiramate 25 MG TABLET PO SCH (21:33)
[2021-02-06] MEDS: carvediloL 6.25 MG TABLET PO SCH (21:33)
[2021-02-06] MEDS: Gabapentin 300 MG CAPSULE PO SCH (21:33)
[2021-02-06] MEDS: levETIRAcetam 250 MG TABLET PO SCH (21:33)
[2021-02-06] MEDS: lamoTRIgine 100 MG TABLET PO SCH (21:34)
[2021-02-06] MEDS: Melatonin 3 MG TABLET PO SCH (21:34)
[2021-02-06] MEDS: MethylPREDNISolone 40 MG/ML VIAL IVP SCH (21:34)
[2021-02-06] MEDS: *HR* Heparin 5,000 UNIT/ML VIAL SQ SCH (21:34)
[2021-02-06] MEDS ORDERED: *HR* HYDROcodone/Acet 5/325 mg TABLET PO ONE (23:37)
[2021-02-07] MEDS: *HR* Heparin 5,000 UNIT/ML VIAL SQ SCH ×2 (06:21→17:11)
[2021-02-07] MEDS: Piperacillin/Tazobactam 3.375 GM in 0.9 % Sodium Chloride Mini Bag 100 ML IVPB SCH ×2 (06:21→17:20)
[2021-02-07] MEDS: Budesonide/Formoterol 80/4.5 1 PUFF INH IH SCH ×2 (08:14→22:13)
[2021-02-07 08:40] LABS: Basophils % 0.2 %; Hematocrit 26.4 % (35.3-44.9); Hemoglobin 8.7 g/dL (11.5-15.4); Immature Granulocytes % 0.9 % (0-4); Lymphocytes # 1.1 K/mcL (0.6-4.6); Lymphocytes % 20.3 %; Mean Corpuscular Hemoglobin 34.1 pg (28.0-33.3); Mean Corpuscular Volume 103.5 fL (83.0-100.0); Mean Platelet Volume 9.8 fL (9.4-12.4); Monocytes # 0.3 K/mcL (0.0-1.3); Monocytes % 4.6 %; Platelet Count 211 K/mcL (140-400); Red Blood Count 2.55 M/mcL (3.82-4.97); Red Cell Distribution Width 14.2 % (11.5-14.5); White Blood Count 5.4 K/mcL (4.3-11.1)
[2021-02-07] MEDS: Topiramate 25 MG TABLET PO SCH ×2 (08:56→20:51)
[2021-02-07] MEDS: levETIRAcetam 250 MG TABLET PO SCH ×2 (08:56→20:50)
[2021-02-07] MEDS: Calcium Acetate 667 MG CAPSULE PO SCH ×3 (08:56→17:08)
[2021-02-07] MEDS: Loratadine 10 MG TABLET PO SCH (08:56)
[2021-02-07] MEDS: lamoTRIgine 100 MG TABLET PO SCH ×2 (08:56→20:51)
[2021-02-07] MEDS: amLODIPine 5 MG TABLET PO SCH (08:57)
[2021-02-07] MEDS: Gabapentin 300 MG CAPSULE PO SCH ×3 (08:57→20:51)
[2021-02-07] MEDS: Lactobacillus 1 EACH CAP.SPRINK PO SCH (08:57)
[2021-02-07] MEDS: carvediloL 6.25 MG TABLET PO SCH ×2 (08:57→20:51)
[2021-02-07] MEDS: Aspirin Enteric Coated 81 MG Tablet PO SCH (08:57)
[2021-02-07] MEDS: MethylPREDNISolone 40 MG/ML VIAL IVP SCH ×2 (08:58→20:58)
[2021-02-07] MEDS: Insulin LISPRO 300 UNITS/3 ML VIAL SUBQ SCH ×3 (09:02→17:10)
[2021-02-07] MEDS: Insulin DETEMIR 100 UNIT/ML X5UNITS SUBQ SCH ×2 (09:03→21:05)
[2021-02-07 09:15] LABS: Potassium 4.9 mEq/L (3.5-5.1)
[2021-02-07] MEDS: Melatonin 3 MG TABLET PO SCH (20:51)
[2021-02-08] MEDS: *HR* Heparin 5,000 UNIT/ML VIAL SQ SCH ×2 (05:09→17:41)
[2021-02-08] MEDS: Piperacillin/Tazobactam 3.375 GM in 0.9 % Sodium Chloride Mini Bag 100 ML IVPB SCH ×2 (05:11→17:39)
[2021-02-08] MEDS: Budesonide/Formoterol 80/4.5 1 PUFF INH IH SCH ×2 (08:20→20:08)
[2021-02-08 08:34] LABS: Hematocrit 29.3 % (35.3-44.9); Hemoglobin 9.5 g/dL (11.5-15.4); Mean Corpuscular HGB Conc 32.4 g/dL (31.6-35.5); Mean Corpuscular Hemoglobin 34.4 pg (28.0-33.3); Mean Corpuscular Volume 106.2 fL (83.0-100.0); Mean Platelet Volume 9.8 fL (9.4-12.4); Platelet Count 228 K/mcL (140-400); Red Blood Count 2.76 M/mcL (3.82-4.97); Red Cell Distribution Width 14.6 % (11.5-14.5); White Blood Count 8.1 K/mcL (4.3-11.1)
[2021-02-08 08:55] LABS: Calcium 9.4 mg/dL (8.6-10.3); Potassium 5.5 mEq/L (3.5-5.1)
[2021-02-08] MEDS: MethylPREDNISolone 40 MG/ML VIAL IVP SCH ×2 (09:15→21:05)
[2021-02-08] MEDS: Calcium Acetate 667 MG CAPSULE PO SCH ×4 (09:16→17:52)
[2021-02-08] MEDS: lamoTRIgine 100 MG TABLET PO SCH ×2 (09:16→21:04)
[2021-02-08] MEDS: Gabapentin 300 MG CAPSULE PO SCH ×3 (09:16→21:01)
[2021-02-08] MEDS: amLODIPine 5 MG TABLET PO SCH (09:16)
[2021-02-08] MEDS: Loratadine 10 MG TABLET PO SCH (09:18)
[2021-02-08] MEDS: Aspirin Enteric Coated 81 MG Tablet PO SCH (09:18)
[2021-02-08] MEDS: levETIRAcetam 250 MG TABLET PO SCH ×2 (09:18→21:01)
[2021-02-08] MEDS: carvediloL 6.25 MG TABLET PO SCH ×2 (09:18→21:04)
[2021-02-08] MEDS: Topiramate 25 MG TABLET PO SCH ×2 (09:18→21:01)
[2021-02-08] MEDS: Insulin DETEMIR 100 UNIT/ML X5UNITS SUBQ SCH ×2 (09:19→21:04)
[2021-02-08] MEDS: Lactobacillus 1 EACH CAP.SPRINK PO SCH (09:19)
[2021-02-08] MEDS: Insulin LISPRO 300 UNITS/3 ML VIAL SUBQ SCH ×3 (09:21→17:42)
[2021-02-08] MEDS ORDERED: 0.9 % Sodium Chloride 250 ML IVC PRN (09:58)
[2021-02-08] MEDS ORDERED: 0.9 % Sodium Chloride 1,000 ML PRIME SCH (10:00)
[2021-02-08] MEDS: Melatonin 3 MG TABLET PO SCH (21:04)
[2021-02-09] MEDS: Piperacillin/Tazobactam 3.375 GM in 0.9 % Sodium Chloride Mini Bag 100 ML IVPB SCH ×2 (05:36→19:41)
[2021-02-09] MEDS: *HR* Heparin 5,000 UNIT/ML VIAL SQ SCH ×2 (05:36→19:42)
[2021-02-09] MEDS ORDERED: 0.9 % Sodium Chloride 250 ML IVC PRN (07:34)
[2021-02-09 08:17] LABS: Calcium 9.4 mg/dL (8.6-10.3); Potassium 4.6 mEq/L (3.5-5.1)
[2021-02-09] MEDS: Budesonide/Formoterol 80/4.5 1 PUFF INH IH SCH ×2 (08:55→20:11)
[2021-02-09] MEDS: Insulin DETEMIR 100 UNIT/ML X5UNITS SUBQ SCH (09:43)
[2021-02-09] MEDS: Insulin LISPRO 300 UNITS/3 ML VIAL SUBQ SCH ×3 (09:43→17:56)
[2021-02-09] MEDS: Loratadine 10 MG TABLET PO SCH (09:44)
[2021-02-09] MEDS: Gabapentin 300 MG CAPSULE PO SCH ×3 (09:44→20:11)
[2021-02-09] MEDS: lamoTRIgine 100 MG TABLET PO SCH ×2 (09:44→20:11)
[2021-02-09] MEDS: levETIRAcetam 250 MG TABLET PO SCH ×2 (09:44→20:12)
[2021-02-09] MEDS: Calcium Acetate 667 MG CAPSULE PO SCH ×3 (09:44→17:57)
[2021-02-09] MEDS: Topiramate 25 MG TABLET PO SCH ×2 (09:44→20:11)
[2021-02-09] MEDS: Aspirin Enteric Coated 81 MG Tablet PO SCH (09:44)
[2021-02-09] MEDS: Lactobacillus 1 EACH CAP.SPRINK PO SCH (09:44)
[2021-02-09] MEDS: carvediloL 6.25 MG TABLET PO SCH ×2 (09:45→20:11)
[2021-02-09] MEDS: amLODIPine 5 MG TABLET PO SCH (09:45)
[2021-02-09] MEDS: MethylPREDNISolone 40 MG/ML VIAL IVP SCH ×2 (09:45→20:14)
[2021-02-09] MEDS: *HR* Dextrose 50 % in Water (Syg) 50 ML SYRINGE IVP PRN ×2 (14:25→14:40)
[2021-02-09] MEDS: Melatonin 3 MG TABLET PO SCH (20:11)
[2021-02-09] MEDS: Albuterol 2.5 MG/3 ML NEBULIZER IH PRN (20:11)
[2021-02-09] MEDS ORDERED: Insulin DETEMIR 100 UNIT/ML X5UNITS SUBQ SCH ×2 (21:00)
[2021-02-10] MEDS ORDERED: Dextrose Gel 15 GM/37.5 ML TUBE PO PRN ×2 (00:29)
[2021-02-10] MEDS ORDERED: *HR* Dextrose 50 % in Water (Syg) 50 ML SYRINGE IVP PRN (00:29)
[2021-02-10] MEDS ORDERED: D5% in Water 1,000 ML IVC PRN (00:29)
[2021-02-10] MEDS ORDERED: Insulin LISPRO 300 UNITS/3 ML VIAL SUBQ SCH (00:30)
[2021-02-10] MEDS: Piperacillin/Tazobactam 3.375 GM in 0.9 % Sodium Chloride Mini Bag 100 ML IVPB SCH (05:24)
[2021-02-10] MEDS: *HR* Heparin 5,000 UNIT/ML VIAL SQ SCH (05:24)
[2021-02-10] MEDS: Albuterol 2.5 MG/3 ML NEBULIZER IH PRN (07:47)
[2021-02-10] MEDS: Budesonide/Formoterol 80/4.5 1 PUFF INH IH SCH (07:47)
[2021-02-10] MEDS: Loratadine 10 MG TABLET PO SCH (08:19)
[2021-02-10] MEDS: Aspirin Enteric Coated 81 MG Tablet PO SCH (08:19)
[2021-02-10] MEDS: Calcium Acetate 667 MG CAPSULE PO SCH (08:19)
[2021-02-10] MEDS: Lactobacillus 1 EACH CAP.SPRINK PO SCH (08:20)
[2021-02-10] MEDS: levETIRAcetam 250 MG TABLET PO SCH (08:20)
[2021-02-10] MEDS: lamoTRIgine 100 MG TABLET PO SCH (08:20)
[2021-02-10] MEDS: Topiramate 25 MG TABLET PO SCH (08:20)
[2021-02-10] MEDS: Gabapentin 300 MG CAPSULE PO SCH (08:23)
[2021-02-10] MEDS: Insulin LISPRO 300 UNITS/3 ML VIAL SUBQ SCH ×2 (08:26→12:29)
[2021-02-10] MEDS ORDERED: MethylPREDNISolone 40 MG/ML VIAL IVP SCH (09:00)
[2021-02-10 11:19] VITALS: BP 166/76; PULSE 83; TEMP 98.4; O2SAT 98
[2021-02-10] MEDS: amLODIPine 5 MG TABLET PO SCH (11:42)
[2021-02-10] MEDS: carvediloL 6.25 MG TABLET PO SCH (11:42)
== END 2021-02-10 12:36 | disposition home or self-care (01) | DRG 193 ==
LOC: 2NENU 13:00 → EMEROOARM 13:00 → 2ANU 17:37 → SUATTDRO 20:00 → 2ANU 20:05
PROVIDERS: ADMIT Internal Medicine; ATTEND Internal Medicine

== ENCOUNTER 2021-12-09 10:47 | Observation (INO) ==
[2021-12-09] MEDS ORDERED: 0.9 % Sodium Chloride 500 ML IVC ONE (14:16)
[2021-12-09 15:00] LABS: Eosinophils % 0.4 %; Hematocrit 30.7 % (35.3-44.9); Hemoglobin 10.1 g/dL (11.5-15.4); Immature Granulocytes % 0.7 % (0-4); Lymphocytes # 1.2 K/mcL (0.6-4.6); Lymphocytes % 14.5 %; Mean Corpuscular HGB Conc 32.9 g/dL (31.6-35.5); Mean Corpuscular Hemoglobin 32.7 pg (28.0-33.3); Mean Corpuscular Volume 99.4 fL (83.0-100.0); Mean Platelet Volume 10.6 fL (9.4-12.4); Monocytes # 0.5 K/mcL (0.0-1.3); Monocytes % 5.8 %; Neutrophils # 6.6 K/mcL (1.6-8.9); Platelet Count 156 K/mcL (140-400); Red Blood Count 3.09 M/mcL (3.82-4.97); Red Cell Distribution Width 13.6 % (11.5-14.5); Segmented Neutrophils % 78.6 %; White Blood Count 8.4 K/mcL (4.3-11.1)
[2021-12-09 15:05] LABS: VBG HCO3 23 mEq/L (21-27); VBG Ionized Calcium 1.09 mmol/L (1.15-1.35); VBG PCO2 49 mmHg (41-51); VBG PH 7.29 pH Units (7.32-7.42); VBG PO2 95 mmHg (25-50)
[2021-12-09 15:49] LABS: Magnesium 1.6 mg/dL (1.6-2.6); Phosphorous 4.8 mg/dL (2.7-4.5); Potassium 3.9 mEq/L (3.5-5.1); Thyroid Stimulating Hormone 1.693 mcIU/mL (0.340-5.600)
[2021-12-09] MEDS ORDERED: Insulin Human Regular 10 UNIT in 0.9 % Sodium Chloride 10 ML IV ONE (17:15)
[2021-12-09] MEDS ORDERED: Naloxone 0.4 MG/ML INJ IVP PRN (17:47)
[2021-12-09] MEDS ORDERED: Ondansetron 4 MG/2 ML VIAL IVP PRN (17:53)
[2021-12-09] MEDS ORDERED: *HR* Dextrose 50 % in Water (Syg) 50 ML SYRINGE IVP PRN (17:55)
[2021-12-09] MEDS ORDERED: D5% in 0.45% NACL w KCl 20 MEQ/1,000 ML MLS IVC PRN (17:55)
[2021-12-09 18:40] LABS: Troponin I 0.07 ng/mL (< 0.04)
[2021-12-09] MEDS: 0.9 % Sodium Chloride w KCl 20 MEQ/1,000 ML MLS IVC SCH (20:53)
[2021-12-09] MEDS ORDERED: Nicotine 14 MG PATCH.TD24 TD SCH (21:00)
[2021-12-09] MEDS: *HR* Heparin 5,000 UNIT/ML VIAL SQ SCH (22:31)
[2021-12-10 00:45] LABS: Calcium 8.9 mg/dL (8.6-10.3)
[2021-12-10] MEDS: *HR* Heparin 5,000 UNIT/ML VIAL SQ SCH ×2 (05:10→14:56)
[2021-12-10 07:04] LABS: Calcium 8.9 mg/dL (8.6-10.3); Potassium 4.4 mEq/L (3.5-5.1)
[2021-12-10] MEDS ORDERED: 0.9 % Sodium Chloride 250 ML IVC PRN (07:25)
[2021-12-10] MEDS ORDERED: 0.9 % Sodium Chloride 2,000 ML PRIME SCH (07:30)
[2021-12-10 07:31] LABS: Hepatitis B Surface Antibody 448.48 mIU/mL
[2021-12-10 07:42] LABS: Hepatitis B Surface Antigen Nonreactive (Nonreactive)
[2021-12-10] MEDS ORDERED: levETIRAcetam 250 MG TABLET PO SCH (09:00)
[2021-12-10] MEDS ORDERED: Aspirin Enteric Coated 81 MG Tablet PO SCH (09:00)
[2021-12-10] MEDS ORDERED: amLODIPine 5 MG TABLET PO SCH (09:00)
[2021-12-10] MEDS ORDERED: Insulin DETEMIR 100 UNIT/ML X5UNITS SUBQ SCH (09:00)
[2021-12-10] MEDS ORDERED: lamoTRIgine 100 MG TABLET PO SCH (09:00)
[2021-12-10] MEDS ORDERED: carvediloL 6.25 MG TABLET PO SCH ×2 (09:00→15:00)
[2021-12-10] MEDS: 0.9 % Sodium Chloride w KCl 20 MEQ/1,000 ML MLS IVC SCH (09:18)
[2021-12-10 10:02] LABS: VBG HCO3 24 mEq/L (21-27); VBG PCO2 49 mmHg (41-51); VBG PO2 90 mmHg (25-50)
[2021-12-10 10:06] LABS: Eosinophils # 0.1 K/mcL (0.0-0.6); Eosinophils % 0.9 %; Hematocrit 28.8 % (35.3-44.9); Hemoglobin 9.8 g/dL (11.5-15.4); Immature Granulocytes % 0.6 % (0-4); Lymphocytes # 1.4 K/mcL (0.6-4.6); Lymphocytes % 17.3 %; Mean Corpuscular Hemoglobin 32.9 pg (28.0-33.3); Mean Corpuscular Volume 96.6 fL (83.0-100.0); Mean Platelet Volume 10.4 fL (9.4-12.4); Monocytes # 0.4 K/mcL (0.0-1.3); Monocytes % 4.8 %; Neutrophils # 6.1 K/mcL (1.6-8.9); Platelet Count 145 K/mcL (140-400); Red Blood Count 2.98 M/mcL (3.82-4.97); Red Cell Distribution Width 13.2 % (11.5-14.5); Segmented Neutrophils % 76.4 %
[2021-12-10 10:09] LABS: Calcium 8.9 mg/dL (8.6-10.3); Magnesium 1.4 mg/dL (1.6-2.6); Phosphorous 3.9 mg/dL (2.7-4.5); Potassium 4.4 mEq/L (3.5-5.1)
[2021-12-10 10:15] LABS: Troponin I 0.07 ng/mL (< 0.04)
[2021-12-10 10:20] LABS: Estimated Average Glucose 237 mg/dl; Hemoglobin A1C 9.9 %
[2021-12-10] MEDS ORDERED: Calcium Acetate 667 MG CAPSULE PO SCH (12:00)
[2021-12-10 14:41] VITALS: TEMP 98
[2021-12-10 16:24] VITALS: BP 157/74; PULSE 86; O2SAT 98
[2021-12-10] MEDS ORDERED: Topiramate 25 MG TABLET PO SCH (21:00)
== END 2021-12-10 17:24 | disposition home or self-care (01) ==
LOC: EMEROOARM 10:47 → 3NENU 10:47 → SUATTDRO 17:33 → 3NENU 18:50 → 2NNU 20:49 → UNDODISOB 12-10 11:41
PROVIDERS: ADMIT Internal Medicine; ATTEND Internal Medicine